=== PATIENT | female | born 1985 | race Caucasian/White ===

== ENCOUNTER 2020-01-07 09:56 | Emergency (ER) | payer OTHER, SELFPAY ==
[2020-01-07 10:00] VITALS: BP 116/79; PULSE 74; RESP 20; TEMP 37; O2SAT 100
--- NOTE | 2020-01-07 10:06 | ED.HA ---
HPI - Headache General Chief Complaint: Headache Stated Complaint: migraine x 4 Time Seen by Provider: 01/07/20 10:15 Source: patient and RN notes reviewed Mode of arrival: ambulatory Limitations: no limitations History of Present Illness HPI Narrative: 34-year-old female presents with concern for migraine headache. Reports a history of migraines. Reports she takes a daily controller medicine, and has been using sumatriptan/naproxen as directed with no relief of her headache. She reports she believes her headaches are due to wearing a mask at work all day long. She reports this is not the worst headache of her life, denies thunderclap headache onset. Denies weakness in any extremity, difficulty speaking, difficulty swallowing, vision changes. She reports light sensitivity, shoulder and neck tension. MD elicited complaint: migraine Related Data Home Medications Medication Instructions Recorded Confirmed sumatriptan-naproxen 1 tablet PO ONCE 01/07/20 01/07/20 topiramate 150 mg PO DAILY 01/07/20 01/07/20 Allergies Allergy/AdvReac Type Severity Reaction Status Date / Time amoxicillin Allergy Intermediate Hives / Verified 01/07/20 10:22 Red Face clavulanic acid Allergy Intermediate Hives / Verified 01/07/20 10:22 Red Face Review of Systems Review of Systems: Narrative: CONSTITUTIONAL: Denies malaise, chills, sweats, or fever. EYES: Denies visual changes watery discharge. ENT: Denies rhinorrhea, congestion, sinus pain, otalgia or sore throat. CARDIOVASCULAR: Denies chest pain, palpitations, or edema. RESPIRATORY: Denies cough or dyspnea. GASTROINTESTINAL: Denies abdominal pain, nausea, vomiting, diarrhea, bloody, or mucous stools. SKIN: Denies rash or itching. MUSCULOSKELETAL: Reports neck and shoulder tension NEUROLOGIC: Reports 4-day migraine PSYCHIATRIC: Denies anxiety or depression. All systems reviewed & are unremarkable except as noted in HPI and below PMFSH Comments At time of signature, agree with nursing past medical, surgical, social and family history. There is no relevant family history pertinent to the presenting complaint Exam Narrative: Exam Narrative: GENERAL: Well-appearing, well-nourished, and in no acute distress. HEAD: Normocephalic, atraumatic. EYES: PERRLA, conjunctivae clear, and EOMI. No nystagmus. ENT: Nares clear. Mucous membranes moist. NECK: Supple. No lymphadenopathy. CHEST: No respiratory distress. Speaks in full sentences. HEART: Regular rate and rhythm. SKIN: Warm, dry, no rash. NEURO: Alert and oriented x3. No focal deficits. Cranial nerves II through XII grossly intact PSYCH: Normal mood and affect Course Course Emergency Course: Patient is aware of diagnosis, understands and agrees to treatment plan. Anticipatory guidance given. Patient agrees to follow-up as directed and is aware of reasons to seek care at the emergency department. Portions of this record may have been created with voice recognition software Vital Signs Vital signs: Vital Signs Temperature 98.6 F 01/07/20 10:00 Pulse Rate 74 01/07/20 10:00 Respiratory Rate 20 01/07/20 10:00 Blood Pressure 116/79 01/07/20 10:00 Pulse Oximetry 100 01/07/20 10:00 Temperature 98.6 F 01/07/20 10:00 Pulse Rate 74 01/07/20 10:00 Respiratory Rate 20 01/07/20 10:00 Blood Pressure 116/79 01/07/20 10:00 Pulse Oximetry 100 01/07/20 10:00 Reviewed. MDM - Headache MDM Narrative Medical decision making narrative: The patient presents with an acute onset headache for 4 days in duration. Patient has past history of migraine headaches. There is not a history of anticoagulation, trauma, , cancer or immunocompromised state. Mental status was normal, no neurological deficits were noted. Differential Diagnosis considered includes hypertensive emergency, subarachnoid hemorrhage, meningitis, trauma, CVA, migraine. Recommendations were given for follow-up with PCP in 1-2 days and to ret
== END 2020-01-07 10:31 | disposition home or self-care (01) ==
PROVIDERS: Emergency Provider Nurse Practitioner
DX: G43.919 Migraine, unspecified, intractable, without status migrainosus (principal)
CPT/HCPCS: 99203; G0463

== ENCOUNTER 2024-09-27 17:41 | Emergency (ER) | payer OTHER, SELFPAY ==
--- OUTSIDE RECORDS SUMMARY | 2024-09-27 17:44 | XMS_ITS | Encounter Summary ---
Author Organization [facility] Address [address] [facility] [facility] [place] [address] Phone Care Team Providers Care Criminal Justice Faculty Name Role Phone Andrei Brice DPM Unavailable [phone] Jj Kaiser MD Primary Care Provider [phone] Gladys Varma APRN, SOAP INSPECTOR Unavailable Reason for Visit * Reason Comments Medication Refill Encounter Details Date Type Department Care Team (Late st Contact Info) Description 09/04/2023 Refill [facility] - Neurology [facility] [address] [place] [id number] Gladys Varma, DRILLING AND PRODUCTION SUPERINTENDENT, SOAP INSPECTOR [address] [place] [address] Medication Refill Social History Tobacco Use Types Packs/Day Years Used Date Smoking Tobacco: Former Smokeless Tobacco: Never Alcohol Use Standard Drinks/Week Comments No 0 (1 standard drink = 0.6 oz pur e alcohol) Comments No Sex and Gender Information Value Date Recorded Sex Assigned at Not on file Legal Sex Female 11:35 PM CDT Gender Identity Not on file Sexual Orientation Not on file documented as of this encounter Miscellaneous Notes * Telephone Encounter - Shruti Tanner RN - 09/04/2023 8:32 AM CST Medication failed the protocol, provider to review and approve the medication order if appropriate. Requested Prescriptions Pending Prescriptions Disp Refills Rizatriptan Benzoate 10 MG Tablet [Pharmacy Med Name: RIZATRIPTAN 10 MG TABLET] 10 Tablet 2 Sig: TAKE 1 TABLET BY MOUTH ONCE NEEDED FOR HEADACHES. MAY REPEAT IN 2 HOURS IN NEEDED Not Delegated - Serotonin Agonists (Oral and Nasal) Protocol Failed - 09/04/2023 12:01 AM Failed - This refill cannot be delegated; check utilization no more than 9 doses per month Passed - Visit with relevant provider in past 24 months or upcoming 90 days Recent Visits Date Type Provider Dept 07/30/23 Office Visit Gladys Varma APRN, [facility] 05/19/23 Office Visit Gladys Varma APRN, [facility]14/23 Office Visit Gladys Var[facility] APR[facility] Office Visit Gladys Varma APRN, [facility] 09/13/21 Office Visit Gladys Varma APRN, [facility] Showing recent visits within past 730 days and meeting all other requirements Future Appointments Date Type Provider Dept 11/03/23 Appointment Gladys Varma APRN, [facility] Showing future appointments within next 90 days and meeting all other requirements Passed - No documented Systolic BP > 200 within past 3 months Passed - Number of active Serotonergic medications less than 3 MACHINERY MECHANIC documented in this encounter Plan of Treatment Not on file documented as of this encounter Visit Diagnoses Not on filedocumented in this encounter Care Teams Criminal Justice Faculty Relationship Specialty Start Date End Date Jj Kaiser MD [address] [place] [address] [address] [place] [address] PCP - General Family Medicine 09/13/21 Andrei Brice DPM Consulting Physician Podiatry 05/23/17 Gladys Varma APRN, SOAP INSPECTOR [address] [place] [address] Nurse Practitioner Advanced Practice Nurse 11/15/22 documented as of this encounter
--- OUTSIDE RECORDS SUMMARY | 2024-09-27 17:44 | XMS_ITS | Encounter Summary ---
Author Organization [facility] Address [address] [place] [address] Phone Care Team Providers Care Harbor Tug Captain Name Role Phone ShivanioLri garduno Edwin BATES Primary Care Provider [phone] Andrei Brice DPM Unavailable [phone] Jj Kaiser MD Primary Care Provider [phone] Gladys Varma APRN, POLITICAL RESEARCHER Unavailable + [phone] Reason for Visit * Reason Comments Medication Refill Encounter Details Date Type Department Care Team (Late st Contact Info) Description 05/21/2020 [facility] - [place] [address] [place] [phone] Morgan Prado MD [address] [place] [phone] Medication Refill Social History Tobacco Use Types Packs/Day Years Used Date Smoking Tobacco: Former Smokeless Tobacco: Never Alcohol Use Standard Drinks/Week Comments No 0 (1 standard drink = 0.6 oz pur e alcohol) Comments Unknown Sex and Gender Information Value Date Recorded Sex Assigned at Not on file Legal Sex Female 11:35 PM CDT Gender Identity Not on file Sexual Orientation Not on file documented as of this encounter Plan of Treatment Not on file documented as of this encounter Visit Diagnoses Not on filedocumented in this encounter Care Teams Harbor Tug Captain Relationship Specialty Start Date End Date Lori Lo APRN [address] [place] [address] PCP - General Family Medicine 05/23/17 09/12/21 Jj Kaiser MD [address] [place] [address] [place] [address] PCP - General Family Medicine 09/13/21 Andrei Brice DPM [address] [place] [address] [place] [address] Consulting Physician Podiatry 05/23/17 Gladys Varma APRN, POLITICAL RESEARCHER [address] [place] [address] Nurse Practitioner Advanced Practice Nurse 11/15/22 documented as of this encounter
--- OUTSIDE RECORDS SUMMARY | 2024-09-27 17:44 | XMS_ITS | Encounter Summary ---
Author Organization [facility] Address [address] [place] [address] Phone Care Team Providers Care Assistant Operator Name Role Phone Andrei Brice DPM Unavailable [phone] Jj Kaiser MD Primary Care Provider [phone] Gladys Varma APRN, PROTECTION ENGINEER Unavailable Reason for Visit * Reason Comments Medication Refill Encounter Details Date Type Department Care Team (Late st Contact Info) Description 07/13/2023 Refill [facility] - Neurology [facility] [address] [place] [address] Gladys Varma, HORTICULTURE TEACHER, PROTECTION ENGINEER [address] [place] [address] Medication Refill Social History Tobacco Use Types [...] on file Sexual Orientation Not on file COVID-19 Exposure Response Date Recorded In the last 10 days, have yo u been in contact with someone who was confirmed or suspected to have Coronavirus/COVID-19? No / Unsure 06/26/2023 3:13 PM FRETTED INSTRUMENT REPAIRER documented as of this encounter Miscellaneous Notes * Telephone Encounter - Shruti Tanner RN - 07/13/2023 7:27 PM CST Medication failed the protocol, provider to review and approve the medication order if appropriate. Requested Prescriptions Pending Prescriptions Disp Refills naproxen (NAPROSYN) 500 MG Tablet [Pharmacy Med Name: NAPROXEN 500 MG TABLET] 30 Tablet 2 Sig: Take 1 Tablet by mouth daily as needed for Headaches. NSAIDs Protocol Failed - 07/13/2023 2:56 PM Failed - Normal serum creatinine in past 12 months CREATININE, BLOOD Date Value Ref Range Status 10/05/2021 0.82 0.60 - 1.10 mg/dL Final Failed - AST less than 55 or ALT less than 90 in past 12 months SGOT (AST) Date Value Ref Range Status 10/05/2021 14 <=32 U/L Final SGPT (ALT) Date Value Ref Range Status 10/05/2021 9 <=41 U/L Final Failed - HGB greater than 10 or HCT greater than 30 in past 12 months HEMOGLOBIN (HGB) Date Value Ref Range Status 10/05/2021 14.9 12.0 - 15.8 g/dL Final HEMATOCRIT (HCT) Date Value Ref Range Status 10/05/2021 46.1 36.0 - 47.0 % Final Passed - No positive test in the past 12 months or most recent test was negative Passed - Visit with relevant provider in past 12 months or upcoming 90 days Recent Visits Date Type Provider Dept 05/19/23 Office Visit Gladys Varma APRN, PROTECTION ENGINEER [facility] 02/14/23 Office Visit Gladys Varma APRN, PROTECTION ENGINEER [facility] [place] 11/15/22 Office Visit Gladys Varma APRN, PROTECTION ENGINEER [facility] [place] Showing recent visits within past 365 days and meeting all other requirements Future Appointments Date Type Provider Dept 08/25/23 Appointment Gladys Varma APRN, PROTECTION ENGINEER [facility] [place] Showing future appointments within next 90 days and meeting all other requirements Passed - No active on record Passed - No matching NSAID med order in past 45 days No matching medication orders between 05/29/2023 7:27 PM and 07/13/2023 7:27 PM TED INSTRUMENT REPAIRER documented in this encounter Plan of Treatment Not on file documented as of this encounter Visit Diagnoses Diagnosis Chronic migraine with aura without status migrainosus, not intractable- Primary Neck pain Cervicalgia documented in this encounter Care Teams Assistant Operator Relationship Specialty Start Date End Date Jj Kaiser MD [address] [facility] [address] [facility] [address] [place] [address] PCP - General Family Medicine 09/13/21 Anrdei Brice DPM Consulting Physician Podiatry 05/23/17 Gladys Varma APRN, PROTECTION ENGINEER [address] [place] [address] Nurse Practitioner Advanced Practice Nurse 11/15/22 documented as of this encounter
--- OUTSIDE RECORDS SUMMARY | 2024-09-27 17:44 | XMS_ITS | Encounter Summary ---
Author Organization [facility] Address [address] [facility] [place] [address] Phone Care Team Providers Care Energy Risk Management Analyst Name Role Phone Andrei Brice DPM Unavailable [phone] Jj Kaiser MD Primary Care Provider [phone] Gladys Varma APRN, DIRECTOR WOMEN Unavailable Reason for Visit * Reason Comments Medication Refill Encounter Details Date Type Department Care Team (Late st Contact Info) Description 05/28/2022 Refill [facility] - [facility]rology [facility] [address] [place] [address] Gladys Varma, CHAIR POST MACHINE OPERATOR, DIRECTOR WOMEN [address] [place] [address] Medication Refill Social History Tobacco Use Types [...] on filedocumented in this encounter Care Teams Energy Risk Management Analyst Relationship Specialty Start Date End Date Jj Kaiser MD [address] [facility] [address] [place] [address] PCP - General Family Medicine 09/13/21 Andrei Brice DPM Consulting Physician Podiatry 05/23/17 Gladys Varma APRN, DIRECTOR WOMEN [address] [place] [address] Nurse Practitioner Advanced Practice Nurse 11/15/22 documented as of this encounter
--- OUTSIDE RECORDS SUMMARY | 2024-09-27 17:44 | XMS_ITS | Encounter Summary ---
Author Organization [facility] Address [address] [place] [address] Phone Care Team Providers Care Day Worker Name Role Phone ShivaniLori garduno Edwin BATES Primary Care Provider [phone] Andrei Brice DPM Unavailable [phone] Jj Kaiser MD Primary Care Provider [phone] Gladys Varma INFORMATION SERVICES MANAGER, SUPERVISOR HOME RESTORATION SERVICE Unavailable + [phone] Reason for Visit * Reason Comments Medication Refill Encounter Details Date Type Department Care Team (Late st Contact Info) Description 12/23/2019 [facility]ill [facility] - [place] [address] [place] [phone] Tiffany Lara, INFORMATION SERVICES MANAGER, SHOE SHINER [address] [place] [address] Medication Refill Social History Tobacco Use Types [...] on filedocumented in this encounter Care Teams Day Worker Relationship Specialty Start Date End Date Lori Lo APRN [address] [place] [place] [address] [place] [address] PCP - General Family Medicine 05/23/17 09/12/21 Jj Kaiser MD [address] [place] [address] [place] [address] PCP - General Family Medicine 09/13/21 Andrei Brice DPM [address] [place] [address] [place] [address] Consulting Physician Podiatry 05/23/17 Gladys Varma APRN, SUPERVISOR HOME RESTORATION SERVICE [address] [place] [address] Nurse Practitioner Advanced Practice Nurse 11/15/22 documented as of this encounter
--- OUTSIDE RECORDS SUMMARY | 2024-09-27 17:44 | XMS_ITS | Encounter Summary ---
Author Organization [facility] Address [address] [facility] [place] [address] Phone Care Team Providers Care Nurse Transplant Name Role Phone Andrei Brice DPM Unavailable [phone] Jj Kaiser MD Primary Care Provider [phone] Gladys Varma APRN, MOBILE HOME MECHANIC Unavailable Reason for Visit * Reason Comments Medication Refill Encounter Details Date Type Department Care Team (Late st Contact Info) Description 10/01/2022 Refill [facility] - [facility]rology [facility] [address] [place] [address] Gladys Varma, PLATER APPRENTICE, MOBILE HOME MECHANIC [address] [place] [address] Medication Refill Social History Tobacco Use Types [...] on filedocumented in this encounter Care Teams Nurse Transplant Relationship Specialty Start Date End Date Jj Kaiser MD [address] [facility] [address] [address] PCP - General Family Medicine 09/13/21 Andrei Brice DPM Consulting Physician Podiatry 05/23/17 Gladys Varma APRN, MOBILE HOME MECHANIC [address] [place] [address] Nurse Practitioner Advanced Practice Nurse 11/15/22 documented as of this encounter
--- OUTSIDE RECORDS SUMMARY | 2024-09-27 17:44 | XMS_ITS | Encounter Summary ---
Author Organization [facility] Address [address] [place] [address] Phone Care Team Providers Care Car Chaser Name Role Phone Andrei Brice DPM Unavailable [phone] Jj Kaiser MD Primary Care Provider Galdys Varma APRN, MANAGER STRATEGY Unavailable Reason for Visit * Reason Comments Medication Refill Encounter Details Date Type Department Care Team (Late st Contact Info) Description 06/30/2023 Refill [facility] - [facility] [address] [place] [address] Gladys Varma, ENGINEERING SPECIALIST, MANAGER STRATEGY [address] [place] [address] Medication Refill Social History Tobacco Use Types [...] Coronavirus/COVID-19? No / Unsure 06/26/2023 3:13 PM TRANSMITTER CHIEF documented as of this encounter Miscellaneous Notes * Telephone Encounter - Shruti Tanner RN - 06/30/2023 9:00 AM CST Medication failed the protocol, provider to review and approve the medication order if appropriate. Requested Prescriptions Pending Prescriptions Disp Refills Topiramate 50 MG Tablet [Pharmacy Med Name: TOPIRAMATE 50 MG TABLET] 90 Tablet 1 Sig: TAKE 1 TABLET BY MOUTH NIGHTLY Not Delegated - Anticonvulsants Excluding Benzodiazepines Protocol Failed - 06/30/2023 12:01 AM Failed - This refill cannot be delegated Passed - Visit with relevant provider in past 12 months or upcoming 90 days Recent Visits Date Type Provider Dept 05/19/23 Office Visit Gladys Varma APRN, [facility] [place] 02/14/23 [facility] [place] 11/15/22 Office Visit Gladys Varma APRN, [facility] Showing recent visits within past 365 days and meeting all other requirements Future Appointments Date Type Provider Dept 08/25/23 Appointment Gladys Varma APRN, [facility] [place] Showing future appointments within next 90 days and meeting all other requirements SMITTER CHIEF documented in this encounter Plan of Treatment Not on file documented as of this encounter Visit Diagnoses Not on filedocumented in this encounter Care Teams Car Chaser Relationship Specialty Start Date End Date Jj Kaiser MD [address] [place] [address] [address] [place] [address] PCP - General Family Medicine 09/13/21 Andrei Brice DPM Consulting Physician Podiatry 05/23/17 Gladys Varma APRN, MANAGER STRATEGY [address] [place] [address] Nurse Practitioner Advanced Practice Nurse 11/15/22 documented as of this encounter
--- OUTSIDE RECORDS SUMMARY | 2024-09-27 17:44 | XMS_ITS | Encounter Summary ---
Author Organization [facility] Address [address] [facility] [place] [address] Phone Care Team Providers Care Plastic Battery Assembler Name Role Phone Andrei Brice DPM Unavailable [phone] Jj Kaiser MD Primary Care Provider [phone] Gladys Varma APRN, MEDICAL DIRECTOR OF HOSPICE Unavailable Reason for Visit * Reason Comments Medication Refill Encounter Details Date Type Department Care Team (Late st Contact Info) Description 01/30/2022 Refill [facility] - [facility] [address] [place] [address] Gladys Varma, POCKET CREASER, MEDICAL DIRECTOR OF HOSPICE [address] [place] [address] Medication Refill Social History Tobacco Use Types [...] on filedocumented in this encounter Care Teams Plastic Battery Assembler Relationship Specialty Start Date End Date Jj Kaiser MD [address] [facility] [place] [address] PCP - General Family Medicine 09/13/21 Andrei Brice DPM Consulting Physician Podiatry 05/23/17 Gladys Varma APRN, MEDICAL DIRECTOR OF HOSPICE [address] [place] [address] Nurse Practitioner Advanced Practice Nurse 11/15/22 documented as of this encounter
--- OUTSIDE RECORDS SUMMARY | 2024-09-27 17:44 | XMS_ITS | Encounter Summary ---
Author Organization [facility] Address [address] [facility] [place] [address] Phone Care Team Providers Care Stripping Shovel Oiler Name Role Phone Andrei Brice DPM Unavailable [phone] Jj Kaiser MD Primary Care Provider [phone] Gladys Varma APRN, GROUND SUPPORT AGENT Unavailable Reason for Visit * Reason Comments Medication Refill Encounter Details Date Type Department Care Team (Late st Contact Info) Description 11/04/2022 Refill [facility] - [facility] [address]2 [place] [address] Gladys Varma, FRAME REPAIRER, GROUND SUPPORT AGENT [address] [place] [address] Medication Refill Social History Tobacco Use Types [...] encounter Miscellaneous Notes * Telephone Encounter - Cheryl Gomez RN - 11/04/2022 12:54 PM CDT Medication failed the protocol, provider to review and approve the medication order if appropriate. Requested Prescriptions Pending Prescriptions Disp Refills naproxen (NAPROSYN) 500 MG Tablet [Pharmacy Med Name: NAPROXEN 500 MG TABLET] 30 Tablet 0 Sig: TAKE 1 TABLET BY MOUTH DAILY NEEDED FOR HEADACHES. NSAIDs Protocol Failed - 11/04/2022 12:14 AM Failed - Normal serum creatinine in past 12 months CREATININE, BLOOD Date Value Ref Range Status 10/05/2021 0.82 0.60 - 1.10 mg/dL Final Failed - No matching NSAID med order in past 45 days Matching medication order placed on 10/01/2022 8:16 AM Order [id number]: naproxen (NAPROSYN) 500 MG Tablet (For orders placed between 09/20/2022 12:54 PM and 11/04/2022 12:54 PM) Failed - AST less than 55 or [...] months or upcoming 90 days Recent Visits No visits were found meeting these conditions. Showing recent visits within past 365 days and meeting all other requirements Future Appointments Date Type Provider Dept 11/15/22 Appointment Gladys Varma APRN, GROUND SUPPORT AGENT [facility] Showing future appointments within next 90 days and meeting all other requirements Passed - No active on record documented in this encounter Plan of Treatment Not on file documented as of this encounter Visit Diagnoses Not on filedocumented in this encounter Care Teams Stripping Shovel Oiler Relationship Specialty Start Date End Date Jj Kaiser MD [address] [facility] [place] [address] PCP - General Family Medicine 09/13/21 Andrei Brice DPM Consulting Physician Podiatry 05/23/17 Gladys Varma APRN, GROUND SUPPORT AGENT [address] [place] [address] Nurse Practitioner Advanced Practice Nurse 11/15/22 documented as of this encounter
--- OUTSIDE RECORDS SUMMARY | 2024-09-27 17:44 | XMS_ITS | Encounter Summary ---
Author Organization [facility] Address [address] [facility] [place] [address] Phone Care Team Providers Care Furnace Cooler Name Role Phone Andrei Brice DPM Unavailable [phone] Jj Kaiser MD Primary Care Provider [phone] Gladys Varma APRN, FURNITURE SERVICER Unavailable Reason for Visit * Reason Comments Medication Refill Encounter Details Date Type Department Care Team (Late st Contact Info) Description 05/01/2023 Refill [facility] [address]2 [place] [address] Gladys Varma, PRELIMINARY SCHOOL PSYCHOLOGIST, FURNITURE SERVICER [address] [place] [address] Medication Refill Social History Tobacco Use Types [...] Telephone Encounter - Shruti Tanner RN - 05/01/2023 8:11 AM CDT Medication failed the protocol, provider to [...] Agonists (Oral and Nasal) Protocol Failed - 05/01/2023 12:48 AM Failed - This refill cannot be delegated; check utilization no more than 9 doses per month Passed - Visit with relevant provider in past 24 months or upcoming 90 days Recent Visits Date Type Provider Dept 02/14/23 Office Visit Gladys Varma APRN, [facility] 11/15/22 Office Visit Gladys Varma APRN, [facility] 09/13/21 Office Visit Gladys Varma APRN, [facility] Showing recent visits within past 730 days and meeting all other requirements Future Appointments Date Type Provider Dept 05/19/23 Appointment Gladys Varma APRN, [facility] Neu[facility] Showing future appointments within next 90 days and meeting all other requirements Passed - No documented Systolic BP > 200 within past 3 months Passed - Number of active Serotonergic medications less than 3 documented in this encounter Plan of Treatment Not on file documented as of this encounter Visit Diagnoses Not on filedocumented in this encounter Care Teams Furnace Cooler Relationship Specialty Start Date End Date Jj Kaiser MD [address] [place] [address] [address] [place] [address] PCP - General Family Medicine 09/13/21 Andrei Brice DPM Consulting Physician Podiatry 05/23/17 Gladys Varma APRN, FURNITURE SERVICER [address] [place] [address] Nurse Practitioner Advanced Practice Nurse 11/15/22 documented as of this encounter
--- OUTSIDE RECORDS SUMMARY | 2024-09-27 17:44 | XMS_ITS ---
Author Organization [facility] Address [address] [facility] [place] [address] Phone Care Team Providers Care Power Marketer Name Role Phone Andrei Brice DPM Unavailable [phone] Jj Kaiser MD Primary Care Provider [phone] Gladys Varma APRN, DISTRIBUTION CENTER SUPERVISOR Unavailable [phone] [facility] Status:Enrolled (Active) Start date:09/15/2024 Enrollment date:09/15/2024 Related social drivers of health:Intimate Partner Violence, Social Connections, Alcohol Use, Tobacco Use, Financial Resource Strain,Depression, Stress, Physical Activity, Food Insecurity, Transportation Needs, Housing Stability, Utilities Continued Care and Services Coordination
--- OUTSIDE RECORDS SUMMARY | 2024-09-27 17:44 | XMS_ITS | Encounter Summary ---
Author Organization [facility] Address [address] [place] [address] Phone Care Team Providers Care Lithographers Printer Name Role Phone ShivaniLori garduno Edwin BATES Primary Care Provider [phone] Andrei Brcie DPM Unavailable [phone] Jj Kaiser MD Primary Care Provider [phone] Gladys Varma APRN, PROGRESSIVE CARE MANAGER Unavailable + [phone] Reason for Visit * Reason Comments Medication Refill Encounter Details Date Type Department Care Team (Late st Contact Info) Description 06/15/2020 [facility]ill [facility] [address]1 [place] [phone] Morgan Prado MD [address] [place] [address] Medication Refill Social History Tobacco Use Types [...] as of this encounter Visit Diagnoses Diagnosis Migraine with aura and without status migrainosus, not intractable Migraine with aura, without mention of intractable migraine without mention of status migrainosus documented in this encounter Care Teams Lithographers Printer Relationship Specialty Start Date End Date Lori Lo APRN [address] [place] [address] PCP - General Family Medicine 05/23/17 09/12/21 Jj Kaiser MD [address] [place] [address] [place] [address] PCP - General Family Medicine 09/13/21 Andrei Brice DPM [address] [place] [address] Consulting Physician Podiatry 05/23/17 Gladys Vrama APRN, PROGRESSIVE CARE MANAGER [address] [place] [address] Nurse Practitioner Advanced Practice Nurse 11/15/22 documented as of this encounter
--- OUTSIDE RECORDS SUMMARY | 2024-09-27 17:44 | XMS_ITS | Encounter Summary ---
Author Organization [facility] Address [address] [place] [address] Phone Care Team Providers Care Assistant Import Manager Name Role Phone ShivaniLori garduno Edwin BATES Primary Care Provider [phone] Andrei Brice DPM Unavailable [phone] Jj Kaiser MD Primary Care Provider [phone] Gladys Varma APRN, SOLE SCRAPER Unavailable + [phone] Reason for Visit * Reason Comments Medication Refill Encounter Details Date Type Department Care Team (Late st Contact Info) Description 06/22/2020 Refill [facility] [address]1 [place] [address] Morgan Prado MD [address] [place] [address] Medication Refill Social History Tobacco Use Types [...] migrainosus documented in this encounter Care Teams Assistant Import Manager Relationship Specialty Start Date End Date Lori Lo APRN [address] [place] [address] PCP - General Family Medicine 05/23/17 09/12/21 Jj Kaiser MD [address] [place] [address] [place] [address] PCP - General Family Medicine 09/13/21 Andrei Brice DPM [address] [place] [address] Consulting Physician Podiatry 05/23/17 Gladys Varma APRN, SOLE SCRAPER [address] [place] [address] Nurse Practitioner Advanced Practice Nurse 11/15/22 documented as of this encounter
--- OUTSIDE RECORDS SUMMARY | 2024-09-27 17:44 | XMS_ITS | Encounter Summary ---
Author Organization [facility] Address [address] [facility] [place] [address] Phone Care Team Providers Care Coal Washer Name Role Phone Andrei Brice DPM Unavailable [phone] Jj Kaiser MD Primary Care Provider [phone] Gladys Varma APRN, MATH SPECIALIST Unavailable Reason for Visit * Reason Comments Medication Refill Encounter Details Date Type Department Care Team (Late st Contact Info) Description 01/05/2024 Refill [facility] - [facility]rology [facility] [address]2 [place] [id number] Gladys Varma, CLINICAL ASSOC, MATH SPECIALIST [address]2 [place] [address] Medication Refill Social History Tobacco Use Types [...] Telephone Encounter - Shruti Tanner RN - 01/05/2024 12:59 PM CDT Medication failed the protocol, provider to review and approve the medication order if appropriate. Requested Prescriptions Pending Prescriptions Disp Refills ondansetron (ZOFRAN-ODT) 4 MG TABLET DISPERSIBLE [Pharmacy Med Name: ONDANSETRON ODT 4 MG TABLET] 30 Tablet 0 Sig: TAKE 1 TABLET BY MOUTH EVERY 8 HOURS NEEDED FOR NAUSEA FIRST LINE Not Delegated - 5-HT3 Antagonists Protocol Failed - 01/05/2024 11:45 AM Failed - This refill cannot be delegated Passed - Visit with relevant provider in past 12 months or upcoming 90 days Recent Visits Date Type Provider Dept 11/03/23 Office Visit Gladys Varma APRN, [facility] [place] 07/30/23 Office Visit Gladys Varma APRN, [facility] 05/19/23 Office Visit Gladys Varma APRN, [facility] [place] 02/14/23 Office Visit Gladys Varma APRN [facility] Showing recent visits within past 365 days and meeting all other requirements Future Appointments Date Type Provider Dept 02/10/24 Appointment Gladys [facility]N [facility] [place] Showing future appointments within next 90 days and meeting all other requirements documented in this encounter Plan of Treatment Not on file documented as of this encounter Visit Diagnoses Diagnosis Chronic migraine with aura without status migrainosus, not intractable documented in this encounter Care Teams Coal Washer Relationship Specialty Start Date End Date Jj Kaiser MD [address] [place] [address] PCP - General Family Medicine 09/13/21 Andrei Brice DPM Consulting Physician Podiatry 05/23/17 Gladys Varma APRN, MATH SPECIALIST [address] [place] [address] Nurse Practitioner Advanced Practice Nurse 11/15/22 documented as of this encounter
--- OUTSIDE RECORDS SUMMARY | 2024-09-27 17:44 | XMS_ITS | Referral Summary ---
Author Organization [facility] Address [address] [place] [address] Care Team Providers Care Cellular Phone Repairer Name Role Phone Jj Kaiser MD Primary Care Provider [phone] Allergies Active Allergy Reactions Criticality Noted Date Comments Amoxicillin Hives Reaction: Hives, Amoxicillin-Pot Clavulanate Hives,Unknown 05/23 Reaction: HIVES Medications dicyclomine (BENTYL) 20 mg tablet Take 1 tablet (20 mg total) by mouth 2 (two) times a day 20 tablet 08/20/19 20 Active ondansetron ODT (ZOFRAN-ODT) 4 mg disintegrating tablet Dissolve 1 tablet oral every 4 hours as needed for nausea or vomiting. 15 tablet 07/04/20 20 Active Additional Information Patient not taking.Reported on 01/06/2022 HYDROcodone-acetam inophen (NORCO) 5-325 mg per tabletIndications: Pain Take 1 tablet by mouth every 4 (four) hours as needed for pain 12 tablet 04/27/20 21 Active Additional Information Patient not taking.Reported on 01/06/2022 topiramate (TOPAMAX) 100 mg tablet Take 1 tablet (100 mg total) by mouth every morning 12/12/19 22 Active topiramate (TOPAMAX) 50 mg tablet Take 1 tablet (50 mg total) by mouth nightly 12/12/19 22 Active valACYclovir (VALTREX) 500 mg tablet Take 1 tablet (500 mg total) by mouth 2 (two) times a day 11/27/19 22 Active buPROPion SR (WELLBUTRIN SR) 100 mg 12 hr tablet TAKE 1 TABLET TWICE A DAY BY ORAL ROUTE FOR 90 DAYS. 11/15/19 22 Active cyclobenzaprine (FLEXERIL) 5 mg tablet TAKE 2 TABLETS BY MOUTH 3 TIMES DAILY NEEDED FOR MUSCLE SPASMS. 12/07/19 22 Active metoclopramide (REGLAN) 10 mg tablet TAKE 1 TABLET BY MOUTH 4 TIMES DAILY NEEDED FOR NAUSEA - 2ND LINE.( NOT ENROLLED IN MEDICAID) 10/05/19 22 Active naproxen (NAPROSYN) 500 mg tablet TAKE 1 TABLET BY MOUTH DAILY NEEDED FOR HEADACHES. 12/25/19 22 Active Xulane 150-35 mcg/24 hr APPLY 1 PATCH TO SKIN WEEKLY FOR 3 WEEKS, THEN 1 WEEK OFF 12/30/19 22 Active rizatriptan (MAXALT) 10 mg tablet TAKE 1 TABLET BY MOUTH ONCE NEEDED FOR HEADACHES. MAY REPEAT IN 2 HOURS IN NEEDED 11/11/19 22 Active azithromycin (ZITHROMAX) 250 mg tabletIndications: Strep pharyngitis Take 2 tablets the first day, then 1 tablet daily for 4 days 6 tablet 08/05/20 22 Active ondansetron ODT (ZOFRAN-ODT) 4 mg disintegrating tablet Dissolve 1 tablet oral every 4 hours as needed for nausea or vomiting. 15 tablet 09/16/19 23 Active busPIRone (BUSPAR) 5 mg tablet Take 1 tablet (5 mg total) by mouth 2 (two) times a day as needed 10/06/19 24 Active Active Problems Problem Noted Date Diagnosed Date Cyst of maxillary sinus 12/03/2023 Assessment & Plan (12/03/2023 2:50 PM CDT): Mucus retention cyst was small, not causing obstruction, incidental finding on MRI Lumbar strain, initial encounter 08/18/2020 Urinary tract infection in female 08/14/2018 Acute viral syndrome 08/14/2018 Common migraine with intractable migraine 2014 Overview (11/21/2016): Intractable migraine without aura and without status migrainosus Cellulitis 06/12/2015 Overview (11/21/2016): Cellulitis, unspecified cellulitis site Acute upper respiratory infection 10/26/2014 Overview (11/21/2016): URI, acute Bronchitis 05/30/2014 Overview (11/21/2016): Bronchitis Social History Tobacco Use Types Packs/Day Years Used Date Smoking Tobacco: Every Day Vaping Smokeless Tobacco: Never Tobacco Cessation:Ready to Q uit: Not Asked; Counseling Given: Not Answered Alcohol Use Standard Drinks/Week Comments No 0 (1 standard drink = 0.6 oz pur e alcohol) Comments No Sex and Gender Information Value Date Recorded Sex Assigned at Not on file Legal Sex Female 2:04 AM CLOUD ENGINEER Gender Identity Not on file Sexual Orientation Not on file Last Filed Vital Signs Vital Sign Reading Time Taken Comments Blood Pressure 101/70 12/03/2023 2:14 PM CDT Pulse 86 12/03/2023 2:14 PM CDT Temperature 36.2 C (97.1 F) 09/16/2022 6:55 AM CLOUD ENGINEER Respiratory Rate 18 12/03/2023 2:14 PM CDT Oxygen Saturation 95% 12/03/2023 2:14 PM CDT Inhaled Oxygen Concentration - - Weight 74.8 kg (165 lb) 12/03/2023 2:14 PM CDT Height 165.1 cm (5' 5 ) 12/03/2023 2:14 PM CDT Body Mass Index 27.46 12/03/2023 2:14 PM CDT Plan of Treatment Not on file Insurance [facility] Advance Directives For more information, please contact: [phone] * Full Code (Latest Code Status on File) Date Activated Date Inactivated Comments 04/26/2021 3:11 PM 04/28/2021 10:39 PM * Full Code Date Activated Date Inactivated Comments 04/26/2021 6:37 AM 04/26/2021 3:11 PM Full CPR in ca se of cardiopulmonary arrest Care Teams Cellular Phone Repairer Relationship Specialty Start Date End Date Jj Kaiser MD PCP - General 08/18/20
--- OUTSIDE RECORDS SUMMARY | 2024-09-27 17:44 | XMS_ITS | Encounter Summary ---
Author Organization [facility] Address [address] [place] [address] Phone Care Team Providers Care Solar Thermal Installer Name Role Phone Andrei Brice DPM Unavailable [phone] Jj Kaiser MD Primary Care Provider [phone] Gladys Varma APRN, ETHYL BLENDER Unavailable Reason for Visit * Reason Comments Medication Refill Encounter Details Date Type Department Care Team (Late st Contact Info) Description 12/17/2022 Refill [facility] #2 [place] [phone] Gladys Varma, LAB SYSTEMS ANALYST, ETHYL BLENDER [address] [place] [address] Medication Refill Social History Tobacco Use Types [...] Telephone Encounter - Shruti Tanner RN - 12/18/2022 8:43 AM CDT Medication failed the protocol, provider [...] Agonists (Oral and Nasal) Protocol Failed - 12/17/2022 12:01 AM Failed - This refill cannot be delegated; check utilization no more than 9 doses per month Passed - Visit with relevant provider in past 24 months or upcoming 90 days Recent Visits Date Type Provider Dept 11/15/22 Office Visit Gladys Varma APRN, [facility] Neurology [facility] [place] 09/13/21 Office Visit Gladys Varma APRN, [facility] Showing recent visits within past 730 days and meeting all other requirements Future Appointments Date Type Provider Dept 02/14/23 Appointment Gladys Varma APRN, [facility] Showing future appointments within next 90 days and meeting all other requirements Passed - No documented Systolic BP > 200 within past 3 months Passed - Number of active Serotonergic medications less than 3 documented in this encounter Plan of Treatment Not on file documented as of this encounter Visit Diagnoses Not on filedocumented in this encounter Care Teams Solar Thermal Installer Relationship Specialty Start Date End Date Jj Kaiser MD [address] [facility] [address] [place] [address] PCP - General Family Medicine 09/13/21 Andrei Brice DPM Consulting Physician Podiatry 05/23/17 Gladys Varma APRN, ETHYL BLENDER [address] [place] [address] Nurse Practitioner Advanced Practice Nurse 11/15/22 documented as of this encounter
--- OUTSIDE RECORDS SUMMARY | 2024-09-27 17:44 | XMS_ITS | Encounter Summary ---
Author Organization [facility] Address [address] [facility] [place] [address] Phone Care Team Providers Care Cement Patcher Name Role Phone Andrei Brice DPM Unavailable [phone] Jj Kaiser MD Primary Care Provider [phone] Gladys Varma APRN, APARTMENT MAINTENANCE Unavailable Reason for Visit * Reason Comments Medication Refill Encounter Details Date Type Department Care Team (Late st Contact Info) Description 05/26/[address] [facility] - [facility] #2 [place] [address] Gladys Varma, MIXING HOUSE OPERATOR, APARTMENT MAINTENANCE [address] [place] [address] Medication Refill Social History Tobacco Use Types [...] on filedocumented in this encounter Care Teams Cement Patcher Relationship Specialty Start Date End Date Jj Kaiser MD [address] [facility] [place] [address] PCP - General Family Medicine 09/13/21 Andrei Brice DPM Consulting Physician Podiatry 05/23/17 Gladys Varma APRN, APARTMENT MAINTENANCE [address] [place] [address] Nurse Practitioner Advanced Practice Nurse 11/15/22 documented as of this encounter
--- OUTSIDE RECORDS SUMMARY | 2024-09-27 17:44 | XMS_ITS | Encounter Summary ---
Author Organization [facility] Address [address] [place] [address] Phone Care Team Providers Care Burn Crew Member Name Role Phone Andrei Brice DPM Unavailable [phone] Jj Kaiser MD Primary Care Provider [phone] Gladys Varma APRN, SLASHER TENDER HELPER Unavailable Reason for Visit * Reason Comments Medication Refill Encounter Details Date Type Department Care Team (Late st Contact Info) Description 11/22/2022 Refill [facility] - Neurology [facility] #2 [place] [address] Gladys Varma, ELECTRONICS REPAIR TECHNICIAN, SLASHER TENDER HELPER [address] [place] [address] Medication Refill Social History Tobacco Use Types [...] suspected to have Coronavirus/COVID-19? No / Unsure 11/15/2022 11:01 AM CDT documented as of this encounter Miscellaneous Notes * Telephone Encounter - Cheryl Gomez RN - 11/25/2022 10:50 AM CDT Medication failed the protocol, provider to review and approve the medication order if appropriate. Requested Prescriptions Pending Prescriptions Disp Refills Topiramate 50 MG Tablet [Pharmacy Med Name: TOPIRAMATE 50 MG TABLET] 90 Tablet 1 Sig: Take 1 Tablet by mouth nightly. Not Delegated - Anticonvulsants Excluding Benzodiazepines Protocol Failed - 11/22/2022 11:28 AM Failed - This refill cannot be delegated Passed - Visit with relevant provider in past 12 months or upcoming 90 days Recent Visits Date Type Provider Dept 11/15/22 Office Visit Gladys Varma APRN, [facility] Showing recent visits within past 365 days and meeting all other requirements Future Appointments Date Type Provider Dept 02/14/23 Appointment Gladys Varma APRN, [facility] [place] Showing future appointments within next 90 days and meeting all other requirements documented in this encounter Plan of Treatment Not on file documented as of this encounter Visit Diagnoses Not on filedocumented in this encounter Care Teams Burn Crew Member Relationship Specialty Start Date End Date Jj Kaiser MD [address] [facility] [place] [address] PCP - General Family Medicine 09/13/21 Andrei Brice DPM Consulting Physician Podiatry 05/23/17 Gladys Varma APRN, SLASHER TENDER HELPER [address] [place] [address] Nurse Practitioner Advanced Practice Nurse 11/15/22 documented as of this encounter
--- OUTSIDE RECORDS SUMMARY | 2024-09-27 17:44 | XMS_ITS | Encounter Summary ---
Author Organization [facility] Address [address] [place] [address] Phone Care Team Providers Care Blacking Machine Operator Name Role Phone Andrei Brice DPM Unavailable [phone] Jj Kaiser MD Primary Care Provider [phone] Gladys Varma ONLINE AFFILIATE MARKETING MANAGER, GRAIN CLEANER AND TRANSFER OPERATOR Unavailable Reason for Visit * Reason Comments Medication Refill Encounter Details Date Type Department Care Team (Late st Contact Info) Description 12/29/2021 Refill [facility] - Neurology [facility] #2 [place] [address] Gladys Varma, ONLINE AFFILIATE MARKETING MANAGER, GRAIN CLEANER AND TRANSFER OPERATOR [address] [place] [address] Medication Refill Social History Tobacco Use Types [...] this encounter Visit Diagnoses Diagnosis Migraine with aura, not intractable, without status migrainosus documented in this encounter Care Teams Blacking Machine Operator Relationship Specialty Start Date End Date Jj Kaiser MD [address] [place] [address] [address] [place] [address] PCP - General Family Medicine 09/13/21 Andrei Brice DPM Consulting Physician Podiatry 05/23/17 Gladys Varma APRN, GRAIN CLEANER AND TRANSFER OPERATOR [address] [place] [address] Nurse Practitioner Advanced Practice Nurse 11/15/22 documented as of this encounter
--- OUTSIDE RECORDS SUMMARY | 2024-09-27 17:44 | XMS_ITS | Clinical Summary ---
Author Organization [facility] Address [address] [place] [address] Phone Care Team Providers Care Bridge Ironworker Name Role Phone Andrei Brice DPM Unavailable [phone] jJ Kaiser MD Primary Care Provider [phone] Gladys Varma APRN, MILL TENDER SECOND OPERATOR Unavailable [phone] Allergies Active Allergy Reactions Criticality Noted Date Comments Amoxicillin-Pot Clavulanate Unknown 05/23/20 17 Medications Xulane 150-35 MCG/24HR PATCH WEEKLY 09/12/2021 Active buPROPion (WELLBUTRIN) 100 MG Tablet Take 100 mg by mouth 2 times daily. Active Topiramate 50 MG Tablet TAKE 1 TABLET BY MOUTH NIGHTLY 90 Tablet 1 04/30/2024 Active cyclobenzaprine (FLEXERIL) 10 MG Tablet TAKE 1 TABLET BY MOUTH 3 TIMES DAILY NEEDED FOR MUSCLE SPASMS FOR UP TO 30 DAYS. 30 Tablet 2 06/03/2024 Active ondansetron (ZOFRAN-ODT) 4 MG TABLET DISPERSIBLEIndic ations:Chronic migraine with aura without status migrainosus, not intractable TAKE 1 TABLET BY MOUTH EVERY 8 HOURS NEEDED FOR NAUSEA FIRST LINE 30 Tablet 06/03/2024 Active naproxen (NAPROSYN) 500 MG TabletIndication s:Neck pain TAKE 1 TABLET BY MOUTH DAILY NEEDED FOR HEADACHES. 30 Tablet 2 06/03/2024 Active pantoprazole (PROTONIX) 40 MG Tablet Delayed Response Take 1 Tablet by mouth daily. 30 Tablet 06/04/2024 Active traMADol (ULTRAM) 50 MG TabletIndication s:Gastritis without bleeding, unspecified chronicity, unspecified gastritis type Take 1-2 Tablets by mouth every 6 hours as needed for Severe pain. 12 Tablet 06/04/2024 Active Rizatriptan Benzoate 10 MG Tablet TAKE 1 TABLET BY MOUTH ONCE NEEDED FOR HEADACHES. MAY REPEAT IN 2 HOURS IN NEEDED 10 Tablet 2 07/30/2024 Active topiramate (TOPAMAX) 100 MG TabletIndication s:Chronic migraine with aura without status migrainosus, not intractable TAKE 2 TABLETS BY MOUTH EVERY DAY 180 Tablet 2 08/03/2024 Active Active Problems Problem Noted Date Diagnosed Date Migraine with aura and witho ut status migrainosus, not intractable 04/21/2019 Paronychia of great toe, left 06/05/2017 Encounters Date Type Department Care Team Description 08[facility]03[facility] [address] [place] [address] Gladys Varma APRN, MILL TENDER SECOND OPERATOR Medication Refill 07/30/2024 [facility] [address] [place] [address] Gladys Varma APRN, MILL TENDER SECOND OPERATOR Medication Refill from Last 3 Months Family History Medical History Relation Name Comments No Known Problems Father Alcohol Abuse Mother Depression Mother Migraines Mother Alcohol Abuse Sister Relation Name Status Comments Father Mother Sister Social History Tobacco Use Types Packs/Day Years Used Date Smoking Tobacco: Former Smokeless Tobacco: Never Tobacco Cessation:Counseling Given: Not Answered Alcohol Use Standard Drinks/Week Comments No 0 (1 standard drink = 0.6 oz pur e alcohol) Comments No Sex and Gender Information Value Date Recorded Sex Assigned at Not on file Legal Sex Female 11:35 PM CDT Gender Identity Not on file Sexual Orientation Not on file Last Filed Vital Signs Vital Sign Reading Time Taken Comments Blood Pressure 131/74 06/04/2024 2:01 PM CDT Pulse 68 06/04/2024 2:01 PM CDT Temperature 37.1 C (98.7 F) 06/04/2024 10:59 AM CDT Respiratory Rate 16 06/04/2024 2:01 PM CDT Oxygen Saturation 99% 06/04/2024 2:01 PM CDT Inhaled Oxygen Concentration - - Weight 68 kg (150 lb) 06/04/2024 11:00 AM CDT Height 165.1 cm (5' 5 ) 06/04/2024 10:59 AM CDT Body Mass Index 24.96 06/04/2024 10:59 AM CDT Plan of Treatment Health Maintenance Due Date Last Done Comments Hepatitis C Virus (HCV) Screening 1986 TdaP Immunization 1986 Hepatitis B Immunization (1 of 3 - 19+ 3-dose series) 2005 Pap Smear 11/08/2007 Cervical Cancer Screening (CCS) 2016 HPV/Cotest 2016 Influenza Immunization (#1) 2024 07/18/2016 SARS-COV-2 Immunization ( season) 2024 Respiratory Syncytial Virus (RSV) Immunization (Adult) (1 - 1-dose 75+ series) 2061 Meningococcal Immunization (ACWY) Aged Out No longer eligible based on patient's age to complete this topic Pneumococcal Immunization Combined Aged Out No longer eligible based on patient's age to complete this topic Rotavirus Immunization Aged Out No lo nger eligible based on patient's age to complete this topic Insurance [place] Care Teams Bridge Ironworker Relationship Specialty Start Date End Date Jj Kaiser MD [address] [place] [address] PCP - General Family Medicine 09/13/21 Andrei Brice DPM Consulting Physician Podiatry 05/23/17 Gladys Varma APRN, MILL TENDER SECOND OPERATOR [address] [place] [address] Nurse Practitioner Advanced Practice Nurse 11/15/22
--- OUTSIDE RECORDS SUMMARY | 2024-09-27 17:44 | XMS_ITS | Encounter Summary ---
Author Organization [facility] Address [address] [place] [address] Phone Care Team Providers Care Digital Advisor Name Role Phone Andrei Brice DPM Unavailable [phone] Jj Kaiser MD Primary Care Provider [phone] Gladys Varma APRN, MARINE SAFETY OFFICER Unavailable Reason for Visit * Reason Comments Medication Refill Encounter Details Date Type Department Care Team (Late st Contact Info) Description 04/03/2023 Refill [facility] - [facility]rology [facility] [address] [place] [address] Gladys Varma, MAGICIAN/ILLUSIONIST, MARINE SAFETY OFFICER [address] [place] [address] Medication Refill Social History Tobacco Use Types [...] Visit Diagnoses Diagnosis Chronic migraine with aura documented in this encounter Care Teams Digital Advisor Relationship Specialty Start Date End Date Jj Kaiser MD [address] [facility] [address] [place] [address] PCP - General Family Medicine 09/13/21 Andrei Brice DPM Consulting Physician Podiatry 05/23/17 Gladys Varma APRN, MARINE SAFETY OFFICER [address] [place] [address] Nurse Practitioner Advanced Practice Nurse 11/15/22 documented as of this encounter
--- OUTSIDE RECORDS SUMMARY | 2024-09-27 17:44 | XMS_ITS | Encounter Summary ---
Author Organization [facility] Address [address] [place] [address] Phone Care Team Providers Care Product Support Manager Name Role Phone ShivaniLori garduno Edwin BATES Primary Care Provider [phone] Andrei Brice DPM Unavailable [phone] Jj Kaiser MD Primary Care Provider [phone] Gladys Varma APRN, COVERAGE SPECIALIST Unavailable + [phone] Reason for Visit * Reason Comments Medication Refill Encounter Details Date Type Department Care Team (Late st Contact Info) Description 03/20/2020 [facility]ill [facility] [address] [place] [address] Morgan Prado MD [address] [place] [address] Medication Refill Social History Tobacco Use Types [...] with aura and without status migrainosus, not intractable- Primary Migraine with aura, without mention of intractable migraine without mention of status migrainosus documented in this encounter Care Teams Product Support Manager Relationship Specialty Start Date End Date Lori Lo APRN [address] [facility] [place] [address] PCP - General Family Medicine 05/23/17 09/12/21 Jj Kaiser MD [address] [facility] [place] [address] PCP - General Family Medicine 09/13/21 Andrei Brice DPM [address] [facility] [place] [address] Consulting Physician Podiatry 05/23/17 Gladys Varma APRN, COVERAGE SPECIALIST [address] [place] [address] Nurse Practitioner Advanced Practice Nurse 11/15/22 documented as of this encounter
--- OUTSIDE RECORDS SUMMARY | 2024-09-27 17:44 | XMS_ITS | Encounter Summary ---
Author Organization [facility] Address [address] [place] [address] Phone Care Team Providers Care Gumming Machine Operator Name Role Phone ShivaniLori garduno Edwin BATES Primary Care Provider [phone] Andrei Brice DPM Unavailable [phone] Jj Kaiser MD Primary Care Provider [phone] Gladys Varma STUDENT FINANCIAL AID MANAGER, CUSTOMER ASSISTANCE ASSOCIATE Unavailable + [phone] Reason for Visit * Reason Comments Medication Refill Encounter Details Date Type Department Care Team (Late st Contact Info) Description 10/12/2019 [facility]ill [facility] - [place] [address] [place] [address] Tiffany Lara, STUDENT FINANCIAL AID MANAGER, LOCK INSTALLER [address] [place] [address] Medication Refill Social History Tobacco [...] on filedocumented in this encounter Care Teams Gumming Machine Operator Relationship Specialty Start Date End Date Lori Lo APRN [address] [place] [address] [place] [address] PCP - General Family Medicine 05/23/17 09/12/21 Jj Kaiser MD [address] [place] [address] [place] [address] PCP - General Family Medicine 09/13/21 Andrei Brice DPM [address] [place] [address] [place] [address] Consulting Physician Podiatry 05/23/17 Gladys Varma APRN, CUSTOMER ASSISTANCE ASSOCIATE [address] [place] [address] Nurse Practitioner Advanced Practice Nurse 11/15/22 documented as of this encounter
--- OUTSIDE RECORDS SUMMARY | 2024-09-27 17:44 | XMS_ITS | Encounter Summary ---
Author Organization [facility] Address [address] [place] [address] Phone Care Team Providers Care Supervisor Properties Name Role Phone Andrei Brice DPM Unavailable [phone] Jj Kaiser MD Primary Care Provider [phone] Gladys Varma APRN, SECURITY POLICE OFFICER Unavailable Reason for Visit * Reason Comments Medication Refill Encounter Details Date Type Department Care Team (Late st Contact Info) Description 02/13/2023 Refill [facility] - [facility]rology [facility] [address] [place] [address] Gladys Varma, VACUUM FRAME OPERATOR, SECURITY POLICE OFFICER [address] [place] [address] Medication Refill Social History Tobacco Use Types [...] suspected to have Coronavirus/COVID-19? No / Unsure 02/14/2023 2:28 PM CDT documented as of this encounter Plan of Treatment Not on file documented as of this encounter Visit Diagnoses Diagnosis Migraine with aura, not intractable, without status migrainosus documented in this encounter Care Teams Supervisor Properties Relationship Specialty Start Date End Date Jj Kaiser MD [address] [place] [address] [address] [place] [address] PCP - General Family Medicine 09/13/21 Andrei Brice DPM Consulting Physician Podiatry 05/23/17 Gladys Varma APRN, SECURITY POLICE OFFICER [address] [place] [address] Nurse Practitioner Advanced Practice Nurse 11/15/22 documented as of this encounter
--- OUTSIDE RECORDS SUMMARY | 2024-09-27 17:44 | XMS_ITS | Clinical Summary ---
Author Organization [facility] Address [address] [place] [address] Care Team Providers Care Card Boxer Name Role Phone Jj Kaiser MD Primary Care Provider [phone] Allergies Active Allergy Reactions Criticality Noted Date [...] URI, acute Bronchitis 05/30/2014 Overview (11/21/2016): Bronchitis Surgical History Surgery Date Site/Laterality Comments NO PAST SURGERIES Medical History Medical History Date Comments Hx Other Medical Headache, migra ine Depression Depression Anxiety disorder Anxiety Migraines Family History Medical History Relation Name Comments Migraines Father Migraine; Headache Mother Headaches; Relation Name Status Comments Father Mother Social History Tobacco Use Types Packs/Day Years [...] on file Legal Sex Female 2:04 AM OCCUPATIONAL HEALTH TECHNICIAN Gender Identity Not on file Sexual Orientation Not on file Obstetrics History Para Term AB IAB SAB Ectopic Multiple Livin g Live Births 5 4 4 1 1 0 4 4 Date Outcome GA Total Labor Labor/2nd/3rd Weight Sex Type Anes PTL Blanche A1 A5 Name Clin SAB 009 Term Vag-S pont Livin g 015 Term Vag-S pont Livin g 021 Term Vag-S pont Livin g 021 Term 39w 0d 0h 16m 0h 07m/0h 04m/0h 05m 3.637 kg (8 lb 0.3 oz) M Vag-S pont None N Livin g 8 8 SHELLI LOCK,Helder Snyder MD Complications:None Delivery Location:This Facil ity ([facility]) Last Filed Vital Signs Vital Sign Reading Time Taken Comments Blood Pressure 101/70 12/03/2023 2:14 PM CDT Pulse 86 12/03/2023 2:14 PM CDT Temperature 36.2 C (97.1 F) 09/16/2022 6:55 AM OCCUPATIONAL HEALTH TECHNICIAN Respiratory Rate 18 12/03/2023 2:14 PM CDT Oxygen Saturation 95% 12/03/2023 2:14 PM CDT Inhaled Oxygen Concentration - - Weight 74.8 kg (165 lb) 12/03/2023 2:14 PM CDT Height 165.1 cm (5' 5 ) 12/03/2023 2:14 PM CDT Body Mass Index 27.46 12/03/2023 2:14 PM CDT Plan of Treatment Health Maintenance Due Date Last Done Comments Cervical Cancer Screening 1986 Depression Screening 1986 Hepatitis C Screening 1986 Pneumococcal vaccine <65 (1 of 2 - PCV) 1992 DTaP/Tdap/Td Vaccine (1 - Tdap) 1997 Varicella Vaccines (1 of 2 - 13+ 2-dose series) 11/08/1999 Hepatitis B Screening 2004 Regular Well Visit/Exam 18-64 2004 Influenza Vaccine (#1) 2024 07/18/2016 HPV Vaccines Aged Out No longer eligi ble based on patient's age to complete this topic Insurance [facility] Advance Directives For more information, please contact: [phone] * Full Code (Latest Code Status on File) Date Activated Date Inactivated Comments 04/26/2021 3:11 PM 04/28/2021 10:39 PM * Full Code Date Activated Date Inactivated Comments 04/26/2021 6:37 AM 04/26/2021 3:11 PM Full CPR in ca se of cardiopulmonary arrest Care Teams Card Boxer Relationship Specialty Start Date End Date Jj Kaiser MD PCP - General 08/18/20
[2024-09-27 17:51] VITALS: BP 126/76; PULSE 84; RESP 20; TEMP 37.2; O2SAT 100
[2024-09-27 18:17] LABS: EDCOVIDSCREEN Negative (Negative); EDINFLUASCREEN Negative (Negative); EDINFLUBSCREEN Negative (Negative); EDSTREPNEGPOS1 Negative (Negative)
--- NOTE | 2024-09-27 18:19 | ED.URI ---
HPI - URI/Sore Throat General Chief Complaint: Upper Respiratory Infection Stated Complaint: throat Time Seen by Provider: 09/27/24 18:20 History of Present Illness HPI Narrative: 38-year-old female presented for complaint of sore throat x3 days. Started with body aches and then lost her voice. denies shortness of breath, wheezing nausea vomiting, difficulty maintaining secretions, fevers or lethargy . Related Data Home Medications ?Medication ?Instructions ?Recorded ?Confirmed ?Last Taken ?Type sumatriptan 85 mg-naproxen 500 mg 1 tablet PO ONCE 01/07/20 01/07/20 Unknown History tablet topiramate 150 mg capsule 150 mg PO DAILY 01/07/20 01/07/20 Unknown History sprinkle,extended release 24 hr bupropion HCl 100 mg tablet,12 hr mg PO 09/27/24 Unknown History sustained-release norelgestromin 150 mcg-e.estradiol patch 09/27/24 Unknown History 35 mcg/24 hr weekly transderm patch Allergies Allergy/AdvReac Type Severity Reaction Status Date / Time amoxicillin Allergy Intermediate Hives / Verified 09/27/24 18:02 Red Face clavulanic acid Allergy Intermediate Hives / Verified 09/27/24 18:02 Red Face Review of Systems Review of Systems: per HPI Exam Narrative: GENERAL: Mildly Ill-appearing, nontoxic, no acute distress. EYES: conjunctivae clear ENT: Mucous membranes moist. TM pearly montanez with normal light reflex bilaterally; no tragal tenderness. Oropharynx note erythematous without lesions. Tonsils not enlarged and without exudate. No drooling, no hoarseness, no trismus, uvula midline. No tripod positioning, hot potato voice, or soft palate swelling. NECK: Supple. No lymphadenopathy CHEST: Clear to auscultation, breath sounds equal. No respiratory distress, speaks in full sentences. HEART: Regular rate and rhythm. No murmur heard. SKIN: Warm, dry, no rash. NEURO: Alert and oriented x3. Course Course Emergency Course: Patient is aware of diagnosis, understands and agrees to treatment plan. Anticipatory guidance given. Patient agrees to follow-up as directed and is aware of reasons to seek care at the emergency department. Portions of this record may have been created with voice recognition software Level of Care: Express Care Visit Vital Signs Vital signs: Vital Signs Temperature 99.0 F 09/27/24 17:51 Pulse Rate 84 09/27/24 17:51 Respiratory Rate 20 09/27/24 17:51 Blood Pressure 126/76 09/27/24 17:51 Pulse Oximetry 100 09/27/24 17:51 Oxygen Delivery Room Air 09/27/24 17:51 Temperature 99.0 F 09/27/24 17:51 Pulse Rate 84 09/27/24 17:51 Respiratory Rate 20 09/27/24 17:51 Blood Pressure 126/76 09/27/24 17:51 Pulse Oximetry 100 09/27/24 17:51 Oxygen Delivery Room Air 09/27/24 17:51 MDM - URI/Sore Throat MDM Narrative Medical decision making narrative: Negative flu, COVID, and strep result reviewed with pt. Rx steroid reviewed with patient. Advise supportive treatments. Patient is appropriate for outpatient treatment and follow-up. Differential Diagnosis Differential diagnosis: Likely upper respiratory infection, viral infection and pharyngitis Lab Data Labs: Lab Results 09/27/24 Range/Units 17:57 POC Influenza A Ag Negative (Negative) POC Influenza B Ag Negative (Negative) POC SARS CoV-2 Ag Negative (Negative) POC Grp A Strep Screen Negative (Negative) Discharge Plan Discharge Clinical Impression: Pharyngitis Patient Disposition: Home, Self-Care Condition: Stable Instructions: Pharyngitis (ED) Additional Instructions: Flu and COVID negative. Rapid strep swab was negative today You will be notified in a few days if the culture comes back positive for strep, and appropriate antibiotics will be called in at that time. if symptoms are due to a viral illness, it is not treated with antibiotics. Viral symptoms can be present for up to 10-14 days. Recommend: Flonase spray and Zyrtec for sinus congestion Cough syrup may cause drowsiness; avoid driving or take it at night time. Tylenol every 8 hours as needed for pain/fever Soft foods, cool liquids, warm tea. Gargle with warm saltwater twice a day. Chloraseptic spray and throat lozenges. Rest and stay hydrated. --Follow up with your PCP --Go to the ER immediately if you cannot swallow your saliva, trouble breathing/wheezing, throat swelling, pain is persistent and severe Patient Language: South Korean Prescriptions: New prednisone 50 mg tablet 50 mg PO DAILY Qty: 5 0RF No Action sumatriptan-naproxen 85-500 mg Tablet 1 tablet PO ONCE topiramate 150 mg Capsule,Sprinkle,Er 24hr 150 mg PO DAILY bupropion HCl 100 mg tablet sustained-release 12 hr PO norelgestromin-ethin.estradiol 150-35 mcg/24 hr patch weekly Follow-up/Referrals: Job,Jj Zhu MD [Primary Care Provider] - Time of Disposition: 18:25
== END 2024-09-27 18:30 | disposition home or self-care (01) ==
PROVIDERS: Emergency Provider Nurse Practitioner Family; PCP Family Medicine
DX: J02.9 Acute pharyngitis, unspecified (principal); Z20.822 Contact with and (suspected) exposure to COVID-19
CPT/HCPCS: 87081; 87426; 87804; 87880; 99213; G0463

== ENCOUNTER 2024-12-18 08:52 | Emergency (ER) | payer OTHER, SELFPAY ==
[2024-12-18 09:02] VITALS: BP 117/79; PULSE 89; RESP 16; TEMP 36.8; O2SAT 100
--- NOTE | 2024-12-18 09:10 | ED.URI ---
HPI - URI/Sore Throat General Chief Complaint: Upper Respiratory Infection Stated Complaint: flu symptoms Time Seen by Provider: 12/18/24 09:10 Source: patient and RN notes reviewed Mode of arrival: ambulatory Limitations: no limitations History of Present Illness HPI Narrative: 39-year-old female presents Express Care complaining of flu-like symptoms for 1 day. Patient says she was at work this morning and she was tested for COVID in flu at work and she tested positive for flu B. patient's employer sent her here to confirm that she has influenza. Patient reports having congestion, chills, and body aches. Patient denies cough, sore throat, fevers, nausea, vomiting, diarrhea, abdominal pain, chest pain, or difficulty breathing. Patient said she did not get her flu vaccine. Patient has not taken anything ohhd-iex-nprlmei for her symptoms. Related Data Home Medications ?Medication ?Instructions ?Recorded ?Confirmed ?Last Taken ?Type sumatriptan 85 mg-naproxen 500 mg 1 tablet PO ONCE 01/07/20 01/07/20 Unknown History tablet topiramate 150 mg capsule 150 mg PO DAILY 01/07/20 01/07/20 Unknown History sprinkle,extended release 24 hr bupropion HCl 100 mg tablet,12 hr mg PO 09/27/24 Unknown History sustained-release norelgestromin 150 mcg-e.estradiol patch 09/27/24 Unknown History 35 mcg/24 hr weekly transderm patch Allergies Allergy/AdvReac Type Severity Reaction Status Date / Time amoxicillin Allergy Intermediate Hives / Verified 09/27/24 18:02 Red Face clavulanic acid Allergy Intermediate Hives / Verified 09/27/24 18:02 Red Face Review of Systems Review of Systems: CONSTITUTIONAL: Denies fever or sweats. Positive for body aches and chills. EYES: Denies visual changes, redness, or discharge. ENT: Denies rhinorrhea, sore throat, or otalgia. Positive for congestion. CARDIOVASCULAR: Denies chest pain, palpitations, or edema. RESPIRATORY: Denies cough or dyspnea. GASTROINTESTINAL: Denies abdominal pain, nausea, vomiting, or diarrhea. GENITOURINARY: Denies dysuria or hematuria. SKIN: Denies rash or itching. MUSCULOSKELETAL: Denies back pain, joint pain, or myalgia. NEUROLOGIC: Denies headache, numbness, or weakness. PSYCHIATRIC: Denies anxiety or depression. All other systems reviewed are negative, except as documented in HPI. PMFSH Comments At the time of my signature, I reviewed and agree with the nursing past medical, surgical, social, and family history. There is no relevant family history pertinent to the patient complaint. Exam Narrative: GENERAL: This is a well-nourished, well-developed adult, in no apparent distress. They are non ill-appearing, nontoxic appearing. HEAD: normocephalic, atraumatic. EYES: Sclera clear/white. Conjunctiva normal. Vision is grossly intact. Extraocular movements intact EARS: External ears normal, auditory canals clear and without drainage, TMs normal without perforation. Hearing grossly intact. NOSE: External nose normal with no obvious nasal discharge, nasal turbinates erythematous bilaterally, no rhinorrhea. THROAT: Mucous membranes moist, posterior pharynx clear, without erythema or swelling. Uvula midline. NECK: Neck supple, non-tender without lymphadenopathy, masses or thyromegaly. CARDIOVASCULAR: Regular rate and rhythm without murmurs, gallops, or rubs. RESPIRATORY: Clear to auscultation. Breath sounds equal bilaterally. No wheezes, rales, or rhonchi. SKIN: warm, Dry, intact with no suspicious lesions or rash, good texture and turgor. NEURO: awake, alert, and oriented to person, place and time. There were no obvious focal neurologic abnormalities. EXTREMITIES: No joint tenderness, effusion, or edema noted. BACK: Nontender without deformity. Course Course Emergency Course: Portions of this record may have been created with voice recognition software Level of Care: Express Care Visit Vital Signs Vital signs: Vital Signs Temperature 98.3 F 12/18/24 09:02 Pulse Rate 89 12/18/24 09:02 Respiratory Rate 16 12/18/24 09:02 Blood Pressure 117/79 12/18/24 09:02 Pulse Oximetry 100 12/18/24 09:02 Oxygen Delivery Room Air 12/18/24 09:02 Temperature 98.3 F 12/18/24 09:02 Pulse Rate 89 12/18/24 09:02 Respiratory Rate 16 12/18/24 09:02 Blood Pressure 117/79 12/18/24 09:02 Pulse Oximetry 100 12/18/24 09:02 Oxygen Delivery Room Air 12/18/24 09:02 Reviewed MDM - URI/Sore Throat MDM Narrative Medical decision making narrative: Rapid flu is positive for flu B. Offered patient Tamiflu and she declined. Discussed physical exam findings. Advised supportive measures and signs/symptoms to go to the ER. Pt is appropriate for outpt treatment and f/u. Differential Diagnosis Differential diagnosis: Likely upper respiratory infection, viral infection and influenza Lab Data Attestation: I reviewed the patient's lab results. Labs: Lab Results 12/18/24 Range/Units 09:19 POC Influenza A Ag Negative (Negative) POC Influenza B Ag Positive (Negative) Critical Care Time Critical Care Time Critical Care Time: No Discharge Plan Discharge Clinical Impression: Influenza Patient Disposition: Home Condition: Stable Instructions: Influenza (ED) Additional Instructions: You tested positive for the flu. The flu is self-limiting and will last at least 3 to up to 14 days. Recommend antihistamine such as Benadryl at night time and Zyrtec or Shantel during the day for congestion. Also, recommend symptomatic treatment includes: rest, fluids, and increase humidity of the air at home. You may take Tylenol or ibuprofen as needed for pain or fevers. I recommend DayQuil or NyQuil or other nmig-pkk-xkcnkqz cold/flu medications. These medications may contain Tylenol still please do not exceed 1000 mg Tylenol at once or more than 4000 mg in a day. Please schedule a follow-up visit with your personal physician for further evaluation and treatment within 3-5days. If your symptoms persist, change or worsen significantly before you can contact your personal physician then please, without delay, go to the emergency department for further evaluation. Patient Language: Slovak Prescriptions: No Action sumatriptan-naproxen 85-500 mg Tablet 1 tablet PO ONCE topiramate 150 mg Capsule,Sprinkle,Er 24hr 150 mg PO DAILY bupropion HCl 100 mg tablet sustained-release 12 hr PO norelgestromin-ethin.estradiol 150-35 mcg/24 hr patch weekly prednisone 50 mg tablet 50 mg PO DAILY Qty: 5 0RF Follow-up/Referrals: Job,Jj Zhu MD [Primary Care Provider] - Stand Alone Forms: Work/School Release IP Time of Disposition: 09:26
[2024-12-18 09:20] LABS: EDINFLUASCREEN Negative (Negative); EDINFLUBSCREEN Positive (Negative)
--- OUTSIDE RECORDS SUMMARY | 2024-12-18 15:58 | XMS_ITS | Encounter Summary ---
Author Organization [facility] Address [address] [place] [address] Phone Care Team Providers Care Site Acquisition Manager Name Role Phone Andrei Brice DPM Unavailable [phone] Jj Kaiser MD Primary Care Provider [phone] Gladys Varma APRN, AIR TWIST OPERATOR Unavailable Reason for Visit * Reason Comments Medication Refill Encounter Details Date Type Department Care Team (Late st Contact Info) Description 09/04/2023 Refill [facility] - Neurology [facility] [address] [place] [id number] Gladys Varma, TELECOMMUNICATIONS OFFICER, AIR TWIST OPERATOR [address] [place] [address] Medication Refill Social History Tobacco Use Types [...] Dept 07/30/23 Office Visit Gladys Varma APRN, [facility] Neurology [facility] 05/19/23 Office Visit Gladys Varma APRN, [facility] 02/14/23 Office Visit Gladys Varma APRN, [facility] 11/15/22 Office Visit Gladys Varma APRN, [facility] Neurology [facility] 09/13/21 Office Visit Gladys Varma APRN, [facility] Showing recent visits within past 730 days and meeting all other requirements Future Appointments Date Type Provider Dept 11/03/23 Appointment Gladys Varma APRN, [facility] Showing future appointments within next 90 days and meeting all other requirements Passed - No documented Systolic BP > 200 within past 3 months Passed - Number of active Serotonergic medications less than 3 IX LEAD documented in this encounter Plan of Treatment Upcoming Encounters Date Type Department Care Team (Late st Contact Info) Description 01/13/2025 3:00 PM CDT Office Visit [facility]rology - [place] [address] [place] [address] Gladys Varma APRN, AIR TWIST OPERATOR [address] [place] [address] documented as of this encounter Visit Diagnoses Not on filedocumented in this encounter Care Teams Site Acquisition Manager Relationship Specialty Start Date End Date Jj Kaiser MD [address] [place] [address] [address] [place] [address] PCP - General Family Medicine 09/13/21 Andrei Brice DPM Consulting Physician Podiatry 05/23/17 Gladys Varma APRN, AIR TWIST OPERATOR [address] [place] [address] Nurse Practitioner Advanced Practice Nurse 11/15/22 documented as of this encounter
--- OUTSIDE RECORDS SUMMARY | 2024-12-18 15:58 | XMS_ITS | Encounter Summary ---
Author Organization [facility] Address [address] [facility] [place] [address] Phone Care Team Providers Care Physicians And Surgeons Name Role Phone Andrei Brice DPM Unavailable [phone] Jj Kaiser MD Primary Care Provider [phone] Gladys Varma APRN, CARBONIZER TESTER Unavailable Reason for Visit * Reason Comments Medication Refill Encounter Details Date Type Department Care Team (Late st Contact Info) Description 01/05/2024 Refill [facility] - Neurology [facility] [address] [place] [id number] Gladys Varma, CHANGE CONTROL SPECIALIST, CARBONIZER TESTER [address] [place] [address] Medication Refill Social History Tobacco Use Types [...] Dept 11/03/23 Office Visit Gladys Varma APRN, [facility] 07/30/23 Office Visit Gladys Varma APRN, [facility] 05/19/23 Office Visit Gladys Varma APRN, [facility] 02/14/23 Office Visit Gladys Varma APRN, [facility] Showing recent visits within past 365 days and meeting all other requirements Future Appointments Date Type Provider Dept 02/10/24 Appointment Gladys Varma APRN, [facility] Showing future appointments within next 90 days and meeting all other requirements documented in this encounter Plan of Treatment Upcoming Encounters Date Type Department Care Team (Late st Contact Info) Description 01/13/2025 3:00 PM CDT Office Visit [facility] - Neurology - [place] [address] [place] [address] Gladys Varma APRN, CARBONIZER TESTER [address] [place] [address] documented as of this encounter Visit Diagnoses Diagnosis Chronic migraine with aura without status migrainosus, not intractable documented in this encounter Care Teams Physicians And Surgeons Relationship Specialty Start Date End Date Jj Kaiser MD [address] [facility] [address] [place] [address] PCP - General Family Medicine 09/13/21 Andrei Brice DPM Consulting Physician Podiatry 05/23/17 Gladys Varma APRN, CARBONIZER TESTER [address] [place] [address] Nurse Practitioner Advanced Practice Nurse 11/15/22 documented as of this encounter
--- OUTSIDE RECORDS SUMMARY | 2024-12-18 15:58 | XMS_ITS | Encounter Summary ---
Author Organization [facility] Address [address] [place] [address] Phone Care Team Providers Care Plumber Cub Name Role Phone Andrei Brice DPM Unavailable [phone] Jj Kaiser MD Primary Care Provider [phone] Gladys Varma APRN, QUALITY TECHNICIAN [place] Unavailable Reason for Visit * Reason Comments Medication Refill Encounter Details Date Type Department Care Team (Late st Contact Info) Description 11/22/2022 Refill [facility] - [facility] [address] [place] [address] Gladys Varma, BLEACH LIQUOR MAKER, QUALITY TECHNICIAN [place] [address] [place] [address] Medication Refill Social History Tobacco Use Types [...] Dept 11/15/22 Office Visit Gladys Varma APRN, QUALITY TECHNICIAN [place] [facility] Neurology [facility] [place] Showing recent visits within past 365 days and meeting all other requirements Future Appointments Date Type Provider Dept 02/14/23 Appointment Gladys Varma APRN, QUALITY TECHNICIAN [place] [facility] Neu[facility] Showing future appointments within next 90 days and meeting all other requirements documented in this encounter Plan of Treatment Upcoming Encounters Date Type Department Care Team (Late st Contact Info) Description 01/13/2025 3:00 PM CDT [facility] [place] [address] [place] [address] Gladys Varma APRN, QUALITY TECHNICIAN [place] [address] [place] [address] documented as of this encounter Visit Diagnoses Not on filedocumented in this encounter Care Teams Plumber Cub Relationship Specialty Start Date End Date Jj Kaiser MD [address] [place] [address] [place] [address] PCP - General Family Medicine 09/13/21 Andrei Brice DPM Consulting Physician Podiatry 05/23/17 Gladys Varma APRN, QUALITY TECHNICIAN [place] [address] [place] [address] Nurse Practitioner Advanced Practice Nurse 11/15/22 documented as of this encounter
--- OUTSIDE RECORDS SUMMARY | 2024-12-18 15:58 | XMS_ITS | Encounter Summary ---
Author Organization [facility] Address [address] [place] [address] Phone Care Team Providers Care Lan Specialist Name Role Phone Andrei Brice DPM Unavailable [phone] Jj Kaiser MD Primary Care Provider [phone] Gladys Varma EARLY CHILDHOOD EDUCATION COORDINATOR, CORROSION CONTROL SPECIALIST Unavailable Reason for Visit * Reason Comments Medication Refill Encounter Details Date Type Department Care Team (Late Contact Info) Description 12/29/2021 Refill [facility]rology [facility] [address] [place] [phone] Gladys Varma, EARLY CHILDHOOD EDUCATION COORDINATOR, CORROSION CONTROL SPECIALIST [address] [place] [address] Medication Refill Social History Tobacco Use Types [...] as of this encounter Plan of Treatment Upcoming Encounters Date Type Department Care Team (Late Contact Info) Description 01/13/2025 3:00 PM CDT Office Visit [facility] Neurology [facility] [address] [place] [address] Gladys Varma APRN, CORROSION CONTROL SPECIALIST [address] [place] [address] documented as of this encounter Visit Diagnoses Diagnosis Migraine with aura, not intractable, without status migrainosus documented in this encounter Care Teams Lan Specialist Relationship Specialty Start Date End Date Jj Kaiser MD [address] [place] [address] [facility] [address] [place] [address] PCP - General Family Medicine 09/13/21 Andrei Brice DPM Consulting Physician Podiatry 05/23/17 Gladys Varma APRN, CORROSION CONTROL SPECIALIST [address] [place] [address] Nurse Practitioner Advanced Practice Nurse 11/15/22 documented as of this encounter
--- OUTSIDE RECORDS SUMMARY | 2024-12-18 15:58 | XMS_ITS | Encounter Summary ---
Author Organization [facility] Address [address] [place] [address] Phone Care Team Providers Care Single Pass Soil Stabilizer Operator Name Role Phone ShivaniLori garduno Edwin BATES Primary Care Provider [phone] Andrei Brice DPM Unavailable [phone] Jj Kaiser MD Primary Care Provider [phone] Gladys Varma APRN, SECRET CODE EXPERT Unavailable [phone] Reason for Visit * Reason Comments Medication Refill Encounter Details Date Type Department Care Team (Late Contact Info) Description 06/22/2020 [facility]ill [facility] - [place] [address] [place] [address] Morgan Prado MD #[address] [place] [address] Medication Refill Social History Tobacco Use Types [...] Description 01/13/2025 3:00 PM CDT Office Visit [facility] - Neurology - [place] [address] [place] [address] Gladys Varma APRN, SECRET CODE EXPERT [address] [place] [address] documented as of this encounter Visit Diagnoses Diagnosis Migraine with aura and without status migrainosus, not intractable Migraine with aura, without mention of intractable migraine without mention of status migrainosus documented in this encounter Care Teams Single Pass Soil Stabilizer Operator Relationship Specialty Start Date End Date Lori Lo APRN [address] [facility] [place] [address] PCP - General Family Medicine 05/23/17 09/12/21 Jj Kaiser MD [address] [facility] [facility] [place] [address] PCP - General Family Medicine 09/13/21 Andrei Brice DPM [address] [facility] [facility] [place] [address] Consulting Physician Podiatry 05/23/17 Gladys Varma APRN, SECRET CODE EXPERT [address] [place] [address] Nurse Practitioner Advanced Practice Nurse 11/15/22 documented as of this encounter
--- OUTSIDE RECORDS SUMMARY | 2024-12-18 15:58 | XMS_ITS | Encounter Summary ---
Author Organization [facility] Address [address] [facility] [place] [address] Phone Care Team Providers Care Water Resources Project Manager Name Role Phone Andrei Brice DPM Unavailable [phone] Jj Kaiser MD Primary Care Provider [phone] Gladys Varma VP COMMUNICATIONS, BUSINESS OPERATIONS ANALYST Unavailable Reason for Visit * Reason Comments Medication Refill Encounter Details Date Type Department Care Team (Late Contact Info) Description 04/03/2023 Refill [facility] Neu[facility] [address] [place] [address] Gladys Varma, VP COMMUNICATIONS, BUSINESS OPERATIONS ANALYST [address] [place] [address] Medication Refill Social History Tobacco Use Types [...] Description 01/13/2025 3:00 PM CDT Office Visit [facility] Neurology [facility] [address] [place] [address] Gladys Varma APRN, BUSINESS OPERATIONS ANALYST [address] [place] [address] documented as of this encounter Visit Diagnoses Diagnosis Chronic migraine with aura documented in this encounter Care Teams Water Resources Project Manager Relationship Specialty Start Date End Date Jj Kaiser MD [address] [place] [address] [facility] [address] [place] [address] PCP - General Family Medicine 09/13/21 Andrei Brice DPM Consulting Physician Podiatry 05/23/17 Gladys Varma APRN, BUSINESS OPERATIONS ANALYST [address] [place] [address] Nurse Practitioner Advanced Practice Nurse 11/15/22 documented as of this encounter
--- OUTSIDE RECORDS SUMMARY | 2024-12-18 15:58 | XMS_ITS | Encounter Summary ---
Author Organization [facility] Address [address] [facility] [place] [address] Phone Care Team Providers Care Fur Blower Name Role Phone Andrei Brice DPM Unavailable [phone] Jj Kaiser MD Primary Care Provider [phone] Gladys Varma SERVER SOFTWARE ENGINEER, MEDICAL PHYSICS TEACHER Unavailable Reason for Visit * Reason Comments Medication Refill Encounter Details Date Type Department Care Team (Late Contact Info) Description 05/26/2022 Refill [facility] Neurology [facility] [address] [place] [address] Gladys Varma, SERVER SOFTWARE ENGINEER, MEDICAL PHYSICS TEACHER [address] [place] [address] Medication Refill Social History Tobacco Use Types [...] Description 01/13/2025 3:00 PM CDT Office Visit [facility] Neurology [facility] [address] [place] [address] Gladys Varma APRN, MEDICAL PHYSICS TEACHER [address] [place] [address] documented as of this encounter Visit Diagnoses Not on filedocumented in this encounter Care Teams Fur Blower Relationship Specialty Start Date End Date Jj Kaiser MD [address] [place] [address] [facility] [address] [place] [address] PCP - General Family Medicine 09/13/21 Andrei Brice DPM Consulting Physician Podiatry 05/23/17 Gladys Varma APRN, MEDICAL PHYSICS TEACHER [address] [place] [address] Nurse Practitioner Advanced Practice Nurse 11/15/22 documented as of this encounter
--- OUTSIDE RECORDS SUMMARY | 2024-12-18 15:58 | XMS_ITS | Encounter Summary ---
Author Organization [facility] Address [address] [facility] [place] [address] Phone Care Team Providers Care Comb Tender Name Role Phone Andrei Brice DPM Unavailable [phone] Jj Kaiser MD Primary Care Provider [phone] Gladys Varma APRN, SHREDDING MACHINE KNIFE CHANGER Unavailable Reason for Visit * Reason Comments Medication Refill Encounter Details Date Type Department Care Team (Late st Contact Info) Description 05/01/2023 Refill [facility] #[address] [place] [address] Gladys Varma, COMMUNITY HEALTH ADVISOR, SHREDDING MACHINE KNIFE CHANGER [address] [place] [address] Medication Refill Social History Tobacco Use Types [...] Dept 02/14/23 Office Visit Gladys Varma APRN, [facility] Neurology [facility] 11/15/22 Office Visit Gladys Varma APRN, [facility] Neurology [facility] 09/13/21 Office Visit Gladys Varma APRN, [facility] Showing recent visits within past 730 days and meeting all other requirements Future Appointments Date Type Provider Dept 05/19/23 Appointment Gladys Varma APRN, [facility] Neurology [facility] Showing future appointments within next 90 days and meeting all other requirements Passed - No documented Systolic BP > 200 within past 3 months Passed - Number of active Serotonergic medications less than 3 documented in this encounter Plan of Treatment Upcoming Encounters Date Type Department Care Team (Late st Contact Info) Description 01/13/2025 3:00 PM CDT Office Visit [facility] - Neurology - [place] [address] [place] [address] Gladys Varma APRN, SHREDDING MACHINE KNIFE CHANGER [address] [place] [address] documented as of this encounter Visit Diagnoses Not on filedocumented in this encounter Care Teams Comb Tender Relationship Specialty Start Date End Date Jj Kaiser MD [address] [facility] [place] [address] PCP - General Family Medicine 09/13/21 Andrei Brice DPM Consulting Physician Podiatry 05/23/17 Gladys Varma APRN, SHREDDING MACHINE KNIFE CHANGER [address] [place] [address] Nurse Practitioner Advanced Practice Nurse 11/15/22 documented as of this encounter
--- OUTSIDE RECORDS SUMMARY | 2024-12-18 15:58 | XMS_ITS ---
Author Organization [facility] Address [address] [facility] [place] [address] Phone Care Team Providers Care Fur Trimmer Name Role Phone Andrei Brice DPM Unavailable [phone] Jj Kaiser MD Primary Care Provider [phone] Gladys Varma APRN, CERTIFIED OPHTHALMIC ASSISTANT Unavailable [phone] [facility] Status:Enrolled (Active) Start date:09/15/2024 Enrollment date:09/15/2024 Related social drivers of health:Intimate Partner Violence, Social Connections, Alcohol Use, Tobacco Use, Financial Resource Strain,Depression, Stress, Physical Activity, Food Insecurity, Transportation Needs, Housing Stability, Utilities Continued Care and Services Coordination
--- OUTSIDE RECORDS SUMMARY | 2024-12-18 15:58 | XMS_ITS | Referral Summary ---
Author Organization [facility] Address [address] [place] [address] Care Team Providers Care General Assembler Installer Name Role Phone Jj Kaiser MD Primary Care Provider [phone] Allergies Active Allergy Reactions Criticality Noted Date [...] on file Legal Sex Female 2:04 AM SUBWAY TRAIN OPERATOR Gender Identity Not on file Sexual Orientation Not on file Last Filed Vital Signs Vital Sign Reading Time Taken Comments Blood Pressure 101/70 12/03/2023 2:14 PM CDT Pulse 86 12/03/2023 2:14 PM CDT Temperature 36.2 C (97.1 F) 09/16/2022 6:55 AM SUBWAY TRAIN OPERATOR Respiratory Rate 18 12/03/2023 2:14 PM CDT Oxygen Saturation 95% 12/03/2023 2:14 PM CDT Inhaled Oxygen Concentration - - Weight 74.8 kg (165 lb) 12/03/2023 2:14 PM CDT Height 165.1 cm (5' 5 ) 12/03/2023 2:14 PM CDT Body Mass Index 27.46 12/03/2023 2:14 PM CDT Plan of Treatment Not on file Insurance [facility] Advance Directives For more information, please contact: [phone] * Full Code (Latest Code Status on File) Date Activated Date Inactivated Comments 04/26/2021 3:11 PM 04/28/2021 10:39 PM * Full Code Date Activated Date Inactivated Comments 04/26/2021 6:37 AM 04/26/2021 3:11 PM Full CPR in ca se of cardiopulmonary arrest Care Teams General Assembler Installer Relationship Specialty Start Date End Date Jj Kaiser MD PCP - General 08/18/20
--- OUTSIDE RECORDS SUMMARY | 2024-12-18 15:58 | XMS_ITS | Encounter Summary ---
Author Organization [facility] Address [address] [place] [address] Phone Care Team Providers Care Director Of Revenue Cycle Management Name Role Phone ShivaniLori garduno Edwin BATES Primary Care Provider [phone] Andrei Brice DPM Unavailable [phone] Jj Kaiser MD Primary Care Provider [phone] Gladys Varma JAVASCRIPT UI DEVELOPER, MARKER MACHINE Unavailable + [phone] Reason for Visit * Reason Comments Medication Refill Encounter Details Date Type Department Care Team (Late st Contact Info) Description 12/23/2019 [facility]ill [facility] - [place] #1 [place] [address] Tiffany Lara, JAVASCRIPT UI DEVELOPER, MAGNETIC RESONANCE TECHNOLOGIST #2 [place] [address] Medication Refill Social History Tobacco [...] 01/13/2025 3:00 PM CDT Office Visit [facility] - Neurology - [place] [address] [address] [place] [address] Gladys Varma APRN, MARKER MACHINE #[address] [facility] [place] [place] [facility] [place] [address] documented as of this encounter Visit Diagnoses Not on filedocumented in this encounter Care Teams Director Of Revenue Cycle Management Relationship Specialty Start Date End Date Lori Lo APRN [address] [facility] [place] [address] PCP - General Family Medicine 05/23/17 09/12/21 Jj Kaiser MD [address] [facility] [address] [place] [address] PCP - General Family Medicine 09/13/21 Andrei Brice DPM [address] [facility] [place] [address] Consulting Physician Podiatry 05/23/17 Gladys Varma APRN, MARKER MACHINE [address] [place] [address] Nurse Practitioner Advanced Practice Nurse 11/15/22 documented as of this encounter
--- OUTSIDE RECORDS SUMMARY | 2024-12-18 15:58 | XMS_ITS | Encounter Summary ---
Author Organization [facility] Address [address] [place] [address] Phone Care Team Providers Care Gasoline Tractor Operator Name Role Phone ShivaniLori garduno Edwin BATES Primary Care Provider [phone] Andrei Brice DPM Unavailable [phone] Jj Kaiser MD Primary Care Provider [phone] Gladys Varma APRN, FOREST FIRE OFFICER Unavailable + [phone] Reason for Visit * Reason Comments Medication Refill Encounter Details Date Type Department Care Team (Late Contact Info) Description 05/21/2020 [facility]ill [facility] - [place] #1 [place] [address] Morgan Prado MD #2 [place] [address] Medication Refill Social History Tobacco Use Types [...] 01/13/2025 3:00 PM CDT Office Visit [facility] - Neurology - [place] [address] [address] [place] [address] Gladys Varma APRN, FOREST FIRE OFFICER [address] [facility] [place] [address] documented as of this encounter Visit Diagnoses Not on filedocumented in this encounter Care Teams Gasoline Tractor Operator Relationship Specialty Start Date End Date Lori Lo APRN [address] [facility] [place] [address] PCP - General Family Medicine 05/23/17 09/12/21 Jj Kaiser MD [address] [place] [address] PCP - General Family Medicine 09/13/21 Andrei Brice DPM [address] [place] [address] Consulting Physician Podiatry 05/23/17 Gladys Varma APRN, FOREST FIRE OFFICER [address] [place] [address] Nurse Practitioner Advanced Practice Nurse 11/15/22 documented as of this encounter
--- OUTSIDE RECORDS SUMMARY | 2024-12-18 15:58 | XMS_ITS | Encounter Summary ---
Author Organization [facility] Address [address] [facility] [place] [address] Phone Care Team Providers Care Merchandise Worker Name Role Phone Andrei Brice DPM Unavailable [phone] Jj Kaiser MD Primary Care Provider [phone] Gladys Varma DOCTOR OF NAPRAPATHY, TALENT PROGRAM MANAGER Unavailable Reason for Visit * Reason Comments Medication Refill Encounter Details Date Type Department Care Team (Late Contact Info) Description 01/30/2022 Refill [facility] Neurology [facility] [address] [place] [address] Gladys Varma, DOCTOR OF NAPRAPATHY, TALENT PROGRAM MANAGER [address]2 [place] [address] Medication Refill Social History Tobacco Use Types [...] 3:00 PM CDT Office Visit [facility] Neurology [facility] [address] [place] [address] Gladys Varma APRN, TALENT PROGRAM MANAGER [address] [place] [address] documented as of this encounter Visit Diagnoses Not on filedocumented in this encounter Care Teams Merchandise Worker Relationship Specialty Start Date End Date Jj Kaiser MD [address] [place] [address] [facility] [address] [place] [address] PCP - General Family Medicine 09/13/21 Andrei Brice DPM Consulting Physician Podiatry 05/23/17 Gladys Varma APRN, TALENT PROGRAM MANAGER [address] [place] [address] Nurse Practitioner Advanced Practice Nurse 11/15/22 documented as of this encounter
--- OUTSIDE RECORDS SUMMARY | 2024-12-18 15:58 | XMS_ITS | Encounter Summary ---
Author Organization [facility] Address [address] [place] [address] Phone Care Team Providers Care Rouge Sifter Name Role Phone Andrei Brice DPM Unavailable [phone] Jj Kaiser MD Primary Care Provider [phone] Gladys Varma APRN, CUSTOMER ADVOCACY MANAGER Unavailable Reason for Visit * Reason Comments Medication Refill Encounter Details Date Type Department Care Team (Late st Contact Info) Description 02/13/2023 Refill [facility] [address]2 [place] [address] Gladys Varma, SHEET METAL DUCT INSTALLER APPRENTICE, CUSTOMER ADVOCACY MANAGER #2 [place] [address] Medication Refill Social History Tobacco Use Types [...] Description 01/13/2025 3:00 PM CDT [facility] [address] [place] [address] Gladys Varma APRN, CUSTOMER ADVOCACY MANAGER [address] [place] [address] documented as of this encounter Visit Diagnoses Diagnosis Migraine with aura, not intractable, without status migrainosus documented in this encounter Care Teams Rouge Sifter Relationship Specialty Start Date End Date Jj Kaiser MD [address] [place] [address] [place] [address] [place] [address] PCP - General Family Medicine 09/13/21 Andrei Brice DPM Consulting Physician Podiatry 05/23/17 Gladys Varma APRN, CUSTOMER ADVOCACY MANAGER [address] [place] [address] Nurse Practitioner Advanced Practice Nurse 11/15/22 documented as of this encounter
--- OUTSIDE RECORDS SUMMARY | 2024-12-18 15:58 | XMS_ITS | Encounter Summary ---
Author Organization [facility] Address [address] [place] [address] Phone Care Team Providers Care Optical Instruments Supervisor Name Role Phone Andrei Brice DPM Unavailable [phone] Jj Kaiser MD Primary Care Provider [phone] Gladys Varma APRN, FOREST PATHOLOGY PROFESSOR Unavailable Reason for Visit * Reason Comments Medication Refill Encounter Details Date Type Department Care Team (Late st Contact Info) Description 07/13/2023 Refill [facility] - Neurology [facility] #2 [place] [address] Gladys Varma, MEDICAL DIRECTOR OCCUPATIONAL HEALTH, FOREST PATHOLOGY PROFESSOR #[address] [place] [address] Medication Refill Social History Tobacco Use Types [...] Coronavirus/COVID-19? No / Unsure 06/26/2023 3:13 PM HYDROGEN OPERATOR documented as of this encounter Miscellaneous Notes [...] Dept 05/19/23 Office Visit Gladys Varma APRN, FOREST PATHOLOGY PROFESSOR [facility] Neurology [facility] 02/14/23 Office Visit Gladys Varma APRN, FOREST PATHOLOGY PROFESSOR [place] [facility] [place] 11/15/22 Office Visit Gladys Varma APRN, FOREST PATHOLOGY PROFESSOR [facility] [place] Showing recent visits within past 365 days and meeting all other requirements Future Appointments Date Type Provider Dept 08/25/23 Appointment Gladys Varma APRN, FOREST PATHOLOGY PROFESSOR [facility] [place] Showing future appointments within next 90 days and meeting all other requirements Passed - No active on record Passed - No matching NSAID med order in past 45 days No matching medication orders between 05/29/2023 7:27 PM and 07/13/2023 7:27 PM OGEN OPERATOR documented in this encounter Plan of Treatment Upcoming Encounters Date Type Department Care Team (Late st Contact Info) Description 01/13/2025 3:00 PM CDT Office Visit [facility] - Neurology - [place] [address] [place] [address] Gladys Varma APRN, FOREST PATHOLOGY PROFESSOR [address] [place] [address] documented as of this encounter Visit Diagnoses Diagnosis Chronic migraine with aura without status migrainosus, not intractable- Primary Neck pain Cervicalgia documented in this encounter Care Teams Optical Instruments Supervisor Relationship Specialty Start Date End Date Jj Kaiser MD 4 [facility] [address] [address] PCP - General Family Medicine 09/13/21 Andrei Brice DPM Consulting Physician Podiatry 05/23/17 Gladys Varma APRN, FOREST PATHOLOGY PROFESSOR [address] [place] [address] Nurse Practitioner Advanced Practice Nurse 11/15/22 documented as of this encounter
--- OUTSIDE RECORDS SUMMARY | 2024-12-18 15:58 | XMS_ITS | Encounter Summary ---
Author Organization [facility] Address [address] [place] [address] Phone Care Team Providers Care Pediatric Psychologist Name Role Phone ShivaniLori garduno Edwin BATES Primary Care Provider [phone] Andrei Brice DPM Unavailable [phone] Jj Kaiser MD Primary Care Provider [phone] Gladys Varma APRN, VACCINATOR Unavailable + [phone] Reason for Visit * Reason Comments Medication Refill Encounter Details Date Type Department Care Team (Late Contact Info) Description 06/15/2020 Refill [facility] - [place] #1 [place] [address] Morgan Prado MD #2 [place] [address] Medication Refill Social History Tobacco Use Types [...] 01/13/2025 3:00 PM CDT Office Visit [facility] - Neurology - [place] [address] [address] Gladys Varma APRN, VACCINATOR [address] [place] [address] documented as of this encounter Visit Diagnoses Diagnosis Migraine with aura and without status migrainosus, not intractable Migraine with aura, without mention of intractable migraine without mention of status migrainosus documented in this encounter Care Teams Pediatric Psychologist Relationship Specialty Start Date End Date Lori Lo APRN [address] [facility] [place] [place] [address] PCP - General Family Medicine 05/23/17 09/12/21 Jj Kaiser MD [address] [facility] [place] [address] PCP - General Family Medicine 09/13/21 Andrei Brice DPM [address] [facility] [place] [place] [address] Consulting Physician Podiatry 05/23/17 Gladys Varma APRN, VACCINATOR [address] [place] [address] Nurse Practitioner Advanced Practice Nurse 11/15/22 documented as of this encounter
--- OUTSIDE RECORDS SUMMARY | 2024-12-18 15:58 | XMS_ITS | Encounter Summary ---
Author Organization [facility] Address [address] [facility] [place] [address] Phone Care Team Providers Care Can Sterilizer Name Role Phone Andrei Brice DPM Unavailable [phone] Jj Kaiser MD Primary Care Provider [phone] Gladys Varma APRN, DAYCARE WORKER Unavailable Reason for Visit * Reason Comments Medication Refill Encounter Details Date Type Department Care Team (Late st Contact Info) Description 12/17/2022 Refill [facility] - Neurology [facility] #2 [place] [address] Gladys Varma, NURSE ASSISTANT, DAYCARE WORKER #2 [place] [address] Medication Refill Social History Tobacco Use Types [...] Dept 11/15/22 Office Visit Gladys Varma APRN, [facility] Neurology [facility] [place] 09/13/21 Office Visit Gladys Varma APRN, [facility] Showing recent visits within past 730 days and meeting all other requirements Future Appointments Date Type Provider Dept 02/14/23 Appointment Gladys Varma APRN, [facility] Showing future appointments within next 90 days and meeting all other requirements Passed - No documented Systolic BP > 200 within past 3 months Passed - Number of active Serotonergic medications less than 3 documented in this encounter Plan of Treatment Upcoming Encounters Date Type Department Care Team (Late st Contact Info) Description 01/13/2025 3:00 PM CDT Office Visit [facility] - Neurology - [place] [address] [place] [address] Gladys Varma APRN, DAYCARE WORKER #2 [place] [address] documented as of this encounter Visit Diagnoses Not on filedocumented in this encounter Care Teams Can Sterilizer Relationship Specialty Start Date End Date Jj Kaiser MD [address] [facility] [place] [address] PCP - General Family Medicine 09/13/21 Andrei Brice DPM Consulting Physician Podiatry 05/23/17 Gladys Varma APRN, DAYCARE WORKER [address]2 [place] [address] Nurse Practitioner Advanced Practice Nurse 11/15/22 documented as of this encounter
--- OUTSIDE RECORDS SUMMARY | 2024-12-18 15:58 | XMS_ITS | Encounter Summary ---
Author Organization [facility] Address [address] [facility] [address] Phone Care Team Providers Care Quality Assurance Tester Name Role Phone Andrei Brice DPM Unavailable [phone] Jj Kaiser MD Primary Care Provider [phone] Gladys Varma APRN, PRODUCT EVANGELIST Unavailable Reason for Visit * Reason Comments Medication Refill Encounter Details Date Type Department Care Team (Late st Contact Info) Description 11/04/2022 Refill [facility] - Neurology [facility] #2 [place] [address] Gladys Varma, BULL GANG SUPERVISOR, PRODUCT EVANGELIST #2 [place] [address] Medication Refill Social History Tobacco Use Types [...] order placed on 10/01/2022 8:16 AM Order [id number]: naproxen (NAPROSYN) 500 MG Tablet (For orders [...] Provider Dept 11/15/22 Appointment Gladys Varma APRN, PRODUCT EVANGELIST [facility] [address] Showing future appointments within next 90 days and meeting all other requirements Passed - No active on record documented in this encounter Plan of Treatment Upcoming Encounters Date Type Department Care Team (Late st Contact Info) Description 01/13/2025 3:00 PM CDT Office Visit [facility] - Neurology - [place] [address]2 [place] [address] Gladys Varma APRN, PRODUCT EVANGELIST [address] [place] [address] documented as of this encounter Visit Diagnoses Not on filedocumented in this encounter Care Teams Quality Assurance Tester Relationship Specialty Start Date End Date Jj Kaiser MD [address] [place] [address] [facility] [address] [place] [address] PCP - General Family Medicine 09/13/21 Andrei Brice DPM Consulting Physician Podiatry 05/23/17 Gladys Varma APRN, PRODUCT EVANGELIST [address] [place] [address] Nurse Practitioner Advanced Practice Nurse 11/15/22 documented as of this encounter
--- OUTSIDE RECORDS SUMMARY | 2024-12-18 15:58 | XMS_ITS | Encounter Summary ---
Author Organization [facility] Address [address] [place] [address] Phone Care Team Providers Care Net Programmer Analyst Name Role Phone Andrei Brice DPM Unavailable [phone] Jj Kaiser MD Primary Care Provider Gladys Varma APRN, INSTRUMENT TECHNICIAN Unavailable Reason for Visit * Reason Comments Medication Refill Encounter Details Date Type Department Care Team (Late st Contact Info) Description 06/30/2023 Refill [facility] - Neurology [facility] #2 [place] [address] Gladys Varma, NURSES EDUCATOR, INSTRUMENT TECHNICIAN #2 [place] [address] Medication Refill Social History Tobacco Use Types [...] Coronavirus/COVID-19? No / Unsure 06/26/2023 3:13 PM MARINE ELECTRICIAN documented as of this encounter Miscellaneous Notes [...] Dept 05/19/23 Office Visit Gladys Varma APRN, [facility] Neurology [facility] [place] 02/14/23 Office Visit Gladys Varma APRN, [facility] [place] 11/15/22 Office Visit Gladys Varma APRN, [facility] Showing recent visits within past 365 days and meeting all other requirements Future Appointments Date Type Provider Dept 08/25/23 Appointment Gladys Varma APRN, [facility] [place] Showing future appointments within next 90 days and meeting all other requirements NE ELECTRICIAN documented in this encounter Plan of Treatment Upcoming Encounters Date Type Department Care Team (Late st Contact Info) Description 01/13/2025 3:00 PM CDT Office Visit [facility] - Neurology - [place] [address] [place] [address] Gladys Varma APRN, INSTRUMENT TECHNICIAN #[address] [place] [address] documented as of this encounter Visit Diagnoses Not on filedocumented in this encounter Care Teams Net Programmer Analyst Relationship Specialty Start Date End Date Jj Kaiser MD [address] [place] [address] PCP - General Family Medicine 09/13/21 Andrei Brice DPM Consulting Physician Podiatry 05/23/17 Gladys Varma APRN, INSTRUMENT TECHNICIAN [address] [place] [address] Nurse Practitioner Advanced Practice Nurse 11/15/22 documented as of this encounter
--- OUTSIDE RECORDS SUMMARY | 2024-12-18 15:58 | XMS_ITS | Encounter Summary ---
Author Organization [facility] Address [address] [place] [address] Phone Care Team Providers Care Surfacing Technician Name Role Phone ShivaniLori garduno Edwin BATES Primary Care Provider [phone] Andrei Brice DPM Unavailable [phone] Jj Kaiser MD Primary Care Provider [phone] Gladys Varma APRN, MECHANICAL SYSTEM TECHNICIAN Unavailable + [phone] Reason for Visit * Reason Comments Medication Refill Encounter Details Date Type Department Care Team (Late Contact Info) Description 03/20/2020 Refill [facility] #1 [place] [address] Morgan Prado MD #2 [place] [address] Medication Refill Social History Tobacco Use Types [...] [facility] - Neurology - [place] [address] [address] Gladys Varma APRN, MECHANICAL SYSTEM TECHNICIAN [address] [place] [address] documented as of this encounter Visit Diagnoses Diagnosis Migraine with aura and without status migrainosus, not intractable- Primary Migraine with aura, without mention of intractable migraine without mention of status migrainosus documented in this encounter Care Teams Surfacing Technician Relationship Specialty Start Date End Date Lori Lo APRN [address] [facility] [place] [address] PCP - General Family Medicine 05/23/17 09/12/21 Jj Kaiser MD [address] [facility] [place] [place] [address] PCP - General Family Medicine 09/13/21 Andrei Brice DPM [address] [facility] [place] [place] [address] Consulting Physician Podiatry 05/23/17 Gladys Varma APRN, MECHANICAL SYSTEM TECHNICIAN [address] [place] [address] Nurse Practitioner Advanced Practice Nurse 11/15/22 documented as of this encounter
--- OUTSIDE RECORDS SUMMARY | 2024-12-18 15:58 | XMS_ITS | Clinical Summary ---
Author Organization [facility] Address [address] [facility], [place] [address] Phone Care Team Providers Care Swiss Machinist Name Role Phone Andrei Brice DPM Unavailable [phone] Jj Kaiser MD Primary Care Provider [phone] Gladys Varma BIOMATERIALS ENGINEER, APPLIANCE SERVICE SUPERVISOR Unavailable [phone] Allergies Active Allergy Reactions Criticality Noted Date Comments Amoxicillin-Pot Clavulanate Unknown 05/23/20 17 Medications Xulane 150-35 MCG/24HR PATCH WEEKLY 2 Active buPROPion (WELLBUTRIN) 100 MG Tablet Take 100 mg by mouth 2 times daily. Active Topiramate 50 MG Tablet TAKE 1 TABLET BY MOUTH NIGHTLY 90 Tablet 1 4 Active cyclobenzaprine (FLEXERIL) 10 MG Tablet TAKE 1 TABLET BY MOUTH 3 TIMES DAILY NEEDED FOR MUSCLE SPASMS FOR UP TO 30 DAYS. 30 Tablet 2 4 Active pantoprazole (PROTONIX) 40 MG Tablet Delayed Response Take 1 Tablet by mouth daily. 30 Tablet 4 Active traMADol (ULTRAM) 50 MG TabletIndicatio ns:Gastritis without bleeding, unspecified chronicity, unspecified gastritis type Take 1-2 Tablets by mouth every 6 hours as needed for Severe pain. 12 Tablet 4 Active topiramate (TOPAMAX) 100 MG TabletIndicatio ns:Chronic migraine with aura without status migrainosus, not intractable TAKE 2 TABLETS BY MOUTH EVERY DAY 180 Tablet 2 4 Active naproxen (NAPROSYN) 500 MG TabletIndicatio ns:Neck pain TAKE 1 TABLET BY MOUTH DAILY NEEDED FOR HEADACHES. 30 Tablet 2 5 Active Rizatriptan Benzoate 10 MG Tablet TAKE 1 TABLET BY MOUTH ONCE NEEDED FOR HEADACHES. MAY REPEAT IN 2 HOURS IN NEEDED 10 Tablet 2 5 Active ondansetron (ZOFRAN-ODT) 4 MG TABLET DISPERSIBLEIndi cations:Chronic migraine with aura without status migrainosus, not intractable TAKE 1 TABLET BY MOUTH EVERY 8 HOURS NEEDED FOR NAUSEA FIRST LINE 30 Tablet 5 Active Rizatriptan Benzoate 10 MG Tablet TAKE 1 TABLET BY MOUTH ONCE NEEDED FOR HEADACHES. MAY REPEAT IN 2 HOURS IN NEEDED 10 Tablet 2 4 025 Discontinued ondansetron (ZOFRAN-ODT) 4 MG TABLET DISPERSIBLEIndi cations:Chronic migraine with aura without status migrainosus, not intractable TAKE 1 TABLET BY MOUTH EVERY 8 HOURS NEEDED FOR NAUSEA FIRST LINE 30 Tablet 5 025 Discontinued Active Problems Problem Noted Date Diagnosed Date Migraine with aura and witho ut status migrainosus, not intractable 04/21/2019 Paronychia of great toe, left 06/05/2017 Encounters Date Type Department Care Team Description 11/19/2024 [facility] [address] [place] [phone] Gladys Varma APRN, APPLIANCE SERVICE SUPERVISOR Medication Refill 11/01/2024 Telephone [facility] [address] [place] [address] Morgan Prado MD 11/01/2024 [facility] [address] [place] [address] Gladys Varma APRN, APPLIANCE SERVICE SUPERVISOR Medication Refill 10/05/2024 [facility] [place] [address] [place] [address] Gladys Varma APRN, APPLIANCE SERVICE SUPERVISOR Medication Refill from Last 3 Months Family [...] 06/04/2024 10:59 AM CDT Plan of Treatment Upcoming Encounters Date Type Department Care Team (Late st Contact Info) Description 01/13/2025 3:00 PM CDT Office Visit [facility] Neurology [facility] [address] [place] [address] Gladys Vrama APRN, APPLIANCE SERVICE SUPERVISOR [address] [place] [address] Health Maintenance Due Date Last Done Comments Hepatitis C Virus (HCV) Screening 1986 TdaP Immunization 1986 Hepatitis B Immunization (1 of 3 - 19+ 3-dose series) 2005 Pap Smear 11/08/2007 Cervical Cancer Screening (CCS) 2016 HPV/Cotest 2016 SARS-COV-2 Immunization ( - 2023- season) 2024 Influenza Immunization (Seas on Ended) 2025 07/18/2016 Respiratory Syncytial Virus (RSV) Immunization (Adult) (1 - 1-dose 75+ series) 2061 Meningococcal Immunization (ACWY) Aged Out No longer eligible based on patient's age to complete this topic Pneumococcal Immunization Combined Aged Out No longer eligible based on patient's age to complete this topic Rotavirus Immunization Aged Out No lo nger eligible based on patient's age to complete this topic Insurance MEDICAID [place] Care Teams Swiss Machinist Relationship Specialty Start Date End Date Jj Kaiser MD [address] [place] [address] PCP - General Family Medicine 09/13/21 Andrei Brice DPM Consulting Physician Podiatry 05/23/17 Gladys Varma APRN, APPLIANCE SERVICE SUPERVISOR [address] [place] [address] Nurse Practitioner Advanced Practice Nurse 11/15/22
--- OUTSIDE RECORDS SUMMARY | 2024-12-18 15:58 | XMS_ITS | Encounter Summary ---
Author Organization [facility] Address [address] [facility] [place] [address] Phone Care Team Providers Care Entry Specialists Name Role Phone Andrei Brice DPM Unavailable [phone] Jj Kaiser MD Primary Care Provider [phone] Gladys Varma DISPATCHER RADIOACTIVE WASTE DISPOSAL, CUT OUT OPERATOR Unavailable Reason for Visit * Reason Comments Medication Refill Encounter Details Date Type Department Care Team (Late Contact Info) Description 05/28/2022 Refill [facility] Neurology [facility] [address] [place] [address] Gladys Varma, DISPATCHER RADIOACTIVE WASTE DISPOSAL, CUT OUT OPERATOR [address] [place] [address] Medication Refill Social History Tobacco Use Types [...] Description 01/13/2025 3:00 PM CDT Office Visit [facility] Neurology [facility] [address] [place] [address] Gladys Varma APRN, CUT OUT OPERATOR [address] [place] [address] documented as of this encounter Visit Diagnoses Not on filedocumented in this encounter Care Teams Entry Specialists Relationship Specialty Start Date End Date Jj Kaiser MD [address] [place] [address] [facility] [address] [place] [address] PCP - General Family Medicine 09/13/21 Andrei Brice DPM Consulting Physician Podiatry 05/23/17 Gladys Varma APRN, CUT OUT OPERATOR [address] [place] [address] Nurse Practitioner Advanced Practice Nurse 11/15/22 documented as of this encounter
--- OUTSIDE RECORDS SUMMARY | 2024-12-18 15:58 | XMS_ITS | Encounter Summary ---
Author Organization [facility] Address [address] [place] [address] Phone Care Team Providers Care Manager Billing Name Role Phone Andrei Brice DPM Unavailable [phone] Jj Kaiser MD Primary Care Provider Gladys Varma APRN, USED CAR SALESPERSON Unavailable Reason for Visit * Reason Comments Medication Refill Encounter Details Date Type Department Care Team (Late st Contact Info) Description 11/01/2024 Refill [facility] - Neurology [facility] [address] [place] [address] Gladys Varma, DIRECTOR OF COLLECTIONS, USED CAR SALESPERSON [address] [place] [address] Medication Refill Social History Tobacco Use Types [...] encounter Miscellaneous Notes * Telephone Encounter - Jaylene Foreman RN - 11/02/2024 1:08 PM CDT Medication failed the protocol, provider to review and approve the medication order if appropriate. Requested Prescriptions Pending Prescriptions Disp Refills Topiramate 50 MG Tablet [Pharmacy Med Name: TOPIRAMATE 50 MG TABLET] 90 Tablet 0 Sig: TAKE 1 TABLET BY MOUTH NIGHTLY Not Delegated - Anticonvulsants Excluding Benzodiazepines Protocol Failed - 11/02/2024 1:08 PM Failed - This refill cannot be delegated Passed - Visit with relevant provider in past 12 months or upcoming 90 days Recent Visits Date Type Provider Dept 11/03/23 Office Visit Gladys Varma APRN, [facility] Neurology [facility] [address] Showing recent visits within past 365 days and meeting all other requirements Future Appointments Date Type Provider Dept 01/13/25 Appointment Gladys Varma APRN, [facility] Neurology [facility] [address] [facility] Showing future appointments within next 90 days and meeting all other requirements documented in this encounter Plan of Treatment Upcoming Encounters Date Type Department Care Team (Late st Contact Info) Description 01/13/2025 3:00 PM CDT Office Visit [facility] - Neurology - [place] [address] [place] [address] Gladys Varma APRN, [place] [address] [place] [address] documented as of this encounter Visit Diagnoses Not on filedocumented in this encounter Care Teams Manager Billing Relationship Specialty Start Date End Date Jj Kaiser MD [address] [place] [address] PCP - General Family Medicine 09/13/21 Andrei Brice DPM Consulting Physician Podiatry 05/23/17 Gladys Varma APRN, USED CAR SALESPERSON [address] [place] [address] Nurse Practitioner Advanced Practice Nurse 11/15/22 documented as of this encounter
--- OUTSIDE RECORDS SUMMARY | 2024-12-18 15:58 | XMS_ITS | Clinical Summary ---
Author Organization [facility] Address [address] [place] [address] Care Team Providers Care Sales Development Coordinator Name Role Phone Jj Kaiser MD Primary Care Provider [phone] Allergies Active Allergy Reactions Criticality Noted Date [...] on file Legal Sex Female 2:04 AM DIRECTOR VETERINARY Gender Identity Not on file Sexual Orientation [...] 36.2 C (97.1 F) 09/16/2022 6:55 AM DIRECTOR VETERINARY Respiratory Rate 18 12/03/2023 2:14 PM CDT [...] Depression Screening 1986 Hepatitis C Screening 1986 DTaP/Tdap/Td Vaccine (1 - Tdap) 1997 Varicella Vaccines (1 of 2 - 13+ 2-dose series) 11/08/1999 Hepatitis B Screening 2004 Regular Well Visit/Exam 18-64 2004 Pneumococcal vaccine <65 (1 of 2 - PCV) 2005 Influenza Vaccine (Season Ended) 2025 07/18/20 16 HPV Vaccines Aged Out No longer eligi ble based on patient's age to complete this topic Insurance [facility] Advance Directives For more information, please contact: [phone] * Full Code (Latest Code Status on File) Date Activated Date Inactivated Comments 04/26/2021 3:11 PM 04/28/2021 10:39 PM * Full Code Date Activated Date Inactivated Comments 04/26/2021 6:37 AM 04/26/2021 3:11 PM Full CPR in ca se of cardiopulmonary arrest Care Teams Sales Development Coordinator Relationship Specialty Start Date End Date Jj Kaiser MD PCP - General 08/18/20
--- OUTSIDE RECORDS SUMMARY | 2024-12-18 15:58 | XMS_ITS | Encounter Summary ---
Author Organization [facility] Address [address] [facility] [place] [place] [address] Phone Care Team Providers Care Valve And Regulator Repairer Name Role Phone Andrei Brice DPM Unavailable [phone] Jj Kaiser MD Primary Care Provider [phone] Gladys Varma DATA MANAGEMENT ASSOCIATE, BRIDGE MAINTENANCE WORKER Unavailable Reason for Visit * Reason Comments Medication Refill Encounter Details Date Type Department Care Team (Late Contact Info) Description 10/01/2022 Refill [facility] Neurology [facility] [address] [place] [address] Gladys Varma, DATA MANAGEMENT ASSOCIATE, BRIDGE MAINTENANCE WORKER [address] [place] [address] Medication Refill Social History Tobacco Use Types [...] Description 01/13/2025 3:00 PM CDT Office Visit [facility] Neurology [facility] [address] [place] [address] Gladys Varma APRN, BRIDGE MAINTENANCE WORKER [address] [place] [address] documented as of this encounter Visit Diagnoses Not on filedocumented in this encounter Care Teams Valve And Regulator Repairer Relationship Specialty Start Date End Date Jj Kaiser MD [address] [place] [address] [facility] [address] [place] [address] PCP - General Family Medicine 09/13/21 Andrei Brice DPM Consulting Physician Podiatry 05/23/17 Gladys Varma APRN, BRIDGE MAINTENANCE WORKER [address] [place] [address] Nurse Practitioner Advanced Practice Nurse 11/15/22 documented as of this encounter
== END 2024-12-18 09:36 | disposition home or self-care (01) ==
PROVIDERS: PCP Family Medicine
DX: J10.1 Influenza due to other identified influenza virus with other respiratory manifestations (principal)
CPT/HCPCS: 87804; 99212; G0463

== ENCOUNTER 2025-03-24 17:58 | Emergency (ER) | payer OTHER, SELFPAY ==
--- NOTE | ~2025-03-24 | XR_ITS ---
HISTORY: pain medial rt hand, COMPARISON: None TECHNIQUE: 33 views of the right hand were performed. FINDINGS: No acute fracture is identified. The joint spaces are preserved. The carpal arcs are intact. Mild radiocarpal joint space narrowing with sclerosis of the distal radius is present. Bone mineralization is age-appropriate. No significant soft tissue swelling. No radiopaque foreign body is identified. IMPRESSION: No acute fracture or dislocation within the right hand, as detailed above. Reviewed, dictated and finalized at location A.
--- OUTSIDE RECORDS SUMMARY | 2025-03-24 18:00 | XMS_ITS | Encounter Summary ---
Author Organization [facility] Address [address] [place] [address] Phone Care Team Providers Care Buggy Driver Name Role Phone Andrei Brice DPM Unavailable [phone] Jj Kaiser MD Primary Care Provider [phone] Gladys Varma GAMING CAGE CASHIER, SYSTEMS MANAGEMENT CONSULTANT Unavailable Reason for Visit * Reason Comments Medication Refill Encounter Details Date Type Department Care Team (Late Contact Info) Description 05/26/2022 Refill [facility] Neurology [facility] [address] [place] [address] Gladys Varma, GAMING CAGE CASHIER, SYSTEMS MANAGEMENT CONSULTANT [address] [place] [address] Medication Refill Social History Tobacco Use Types [...] Department Care Team (Late Contact Info) Description 01/10/2026 3:00 PM CDT Office Visit [facility] Neurology [facility] [address] [place] [address] Gladys Varma APRN, SYSTEMS MANAGEMENT CONSULTANT [address] [place] [address] documented as of this encounter Visit Diagnoses Not on filedocumented in this encounter Care Teams Buggy Driver Relationship Specialty Start Date End Date Jj Kaiser MD [address] [place] [address] [facility] [address] [place] [address] PCP - General Family Medicine 09/13/21 Andrei Brice DPM Consulting Physician Podiatry 05/23/17 Gladys Varma APRN, SYSTEMS MANAGEMENT CONSULTANT [address] [place] [address] Nurse Practitioner Advanced Practice Nurse 11/15/22 documented as of this encounter
--- OUTSIDE RECORDS SUMMARY | 2025-03-24 18:00 | XMS_ITS | Encounter Summary ---
Author Organization [facility] Address [address] [facility] [place] [address] Phone Care Team Providers Care Bass Guitar Teacher Name Role Phone Andrei Brice DPM Unavailable [phone] Jj Kaiser MD Primary Care Provider Gladys Varma APRN, FAMILY PROGRAM SPECIALIST Unavailable Reason for Visit * Reason Comments Medication Refill Encounter Details Date Type Department Care Team (Late st Contact Info) Description 11/01/2024 Refill [facility] - Neurology [facility] [address] [place] [address] Gladys Varma, ELIGIBILITY CONSULTANT, FAMILY PROGRAM SPECIALIST [address] [place] [address] Medication Refill Social History Tobacco Use Types [...] 11/03/23 Office Visit Gladys Varma APRN, BRITTANY [facility] Neurology [facility] Showing recent visits within past 365 days and meeting all other requirements Future Appointments Date Type Provider Dept 01/13/25 Appointment Gladys Varma APRN, BRITT[facility] Neurology [facility] Showing future appointments within next 90 days and meeting all other requirements documented in this encounter Plan of Treatment Upcoming Encounters Date Type Department Care Team (Late st Contact Info) Description 01/10/2026 3:00 PM CDT Office Visit [facility] - Neurology - [place] [address] [place] [address] Gladys Varma APRN, BRITTANY [address] [place] [address] documented as of this encounter Visit Diagnoses Not on filedocumented in this encounter Care Teams Bass Guitar Teacher Relationship Specialty Start Date End Date Jj Kaiser MD [address] [place] [address] PCP - General Family Medicine 09/13/21 Andrei Brice DPM Consulting Physician Podiatry 05/23/17 Gladys Varma APRN, FAMILY PROGRAM SPECIALIST [address] [place] [address] Nurse Practitioner Advanced Practice Nurse 11/15/22 documented as of this encounter
--- OUTSIDE RECORDS SUMMARY | 2025-03-24 18:00 | XMS_ITS | Encounter Summary ---
Author Organization [facility] Address [address] [place] [address] Phone Care Team Providers Care Coding Advisor Name Role Phone Andrei Brice DPM Unavailable [phone] Jj Kaiser MD Primary Care Provider [phone] Gladys Varma APRN, FUNCTIONAL SKILLS TUTOR Unavailable Reason for Visit * Reason Comments Medication Refill Encounter Details Date Type Department Care Team (Late st Contact Info) Description 12/17/2022 Refill [facility] - Neurology [facility] [address] [place] [address] Gladys Varma, ADVERTISEMENT DISTRIBUTOR, FUNCTIONAL SKILLS TUTOR [address] [place] [address] Medication Refill Social History Tobacco Use Types [...] Dept 11/15/22 Office Visit Gladys Varma APRN, [facility] Neurology [facility] [place] 09/13/21 Office Visit Gladys Varma APRN, [facility] Showing recent visits within past 730 days and meeting all other requirements Future Appointments Date Type Provider Dept 02/14/23 [facility]ointment [facility] Showing future appointments within next 90 days and meeting all other requirements Passed - No documented Systolic BP > 200 within past 3 months Passed - Number of active Serotonergic medications less than 3 documented in this encounter Plan of Treatment Upcoming Encounters Date Type Department Care Team (Late st Contact Info) Description 01/10/2026 3:00 PM CDT Office Visit [facility] - Neurology - [place] [address] [place] [address] Gladys Varma APRN, FUNCTIONAL SKILLS TUTOR [address] [place] [address] documented as of this encounter Visit Diagnoses Not on filedocumented in this encounter Care Teams Coding Advisor Relationship Specialty Start Date End Date Jj Kaiser MD [address] [place] [address] PCP - General Family Medicine 09/13/21 Andrei Brice DPM Consulting Physician Podiatry 05/23/17 Gladys Varma APRN, FUNCTIONAL SKILLS TUTOR [address] [place] [address] Nurse Practitioner Advanced Practice Nurse 11/15/22 documented as of this encounter
--- OUTSIDE RECORDS SUMMARY | 2025-03-24 18:00 | XMS_ITS | Encounter Summary ---
Author Organization [facility] Address [address] [place] [address] Phone Care Team Providers Care Bakery Decorator Name Role Phone Andrei Brice DPM Unavailable [phone] Jj Kaiser MD Primary Care Provider [phone] Gladys Varma FACILITIES MECHANICAL DESIGN ENGINEER, RISK CONSULTING TREASURY DIRECTOR Unavailable Reason for Visit * Reason Comments Medication Refill Encounter Details Date Type Department Care Team (Late Contact Info) Description 01/30/2022 Refill [facility] Neurology [facility] [address] [place] [address] Gladys Varma, FACILITIES MECHANICAL DESIGN ENGINEER, RISK CONSULTING TREASURY DIRECTOR #2 [place] [address] Medication Refill Social History Tobacco Use Types [...] Description 01/10/2026 3:00 PM CDT Office Visit [facility] Neurology [facility] [address] [place] [address] Gladys Varma APRN, RISK CONSULTING TREASURY DIRECTOR [address] [place] [address] documented as of this encounter Visit Diagnoses Not on filedocumented in this encounter Care Teams Bakery Decorator Relationship Specialty Start Date End Date Jj Kaiser MD [address] [place] [address] [facility] [address] [place] [address] PCP - General Family Medicine 09/13/21 Andrei Brice DPM Consulting Physician Podiatry 05/23/17 Gladys Varma APRN, RISK CONSULTING TREASURY DIRECTOR [address] [place] [address] Nurse Practitioner Advanced Practice Nurse 11/15/22 documented as of this encounter
--- OUTSIDE RECORDS SUMMARY | 2025-03-24 18:00 | XMS_ITS | Encounter Summary ---
Author Organization [facility] Address [address] [place] [address] Phone Care Team Providers Care Ear Flap Binder Name Role Phone Andrei Brice DPM Unavailable [phone] Jj Kaiser MD Primary Care Provider [phone] Gladys Varma APRN, CANDLE MOLDER Unavailable Reason for Visit * Reason Comments Medication Refill Encounter Details Date Type Department Care Team (Late st Contact Info) Description 11/22/2022 Refill [facility] #2 [place] [address] Gladys Varma, ASSISTANT CORPORATE SECRETARY, CANDLE MOLDER [address] [place] [address] Medication Refill Social History Tobacco Use Types [...] Dept 11/15/22 Office Visit Gladys Varma APRN, CANDLE MOLDER [facility] Neurology [facility] [place] Showing recent visits within past 365 days and meeting all other requirements Future Appointments Date Type Provider Dept 02/14/23 Appointment Gladys Varma APRN, CANDLE MOLDER [facility] Neurology [facility] Showing future appointments within next 90 days and meeting all other requirements documented in this encounter Plan of Treatment Upcoming Encounters Date Type Department Care Team (Late st Contact Info) Description 01/10/2026 3:00 PM CDT [facility] - [place] [address] [place] [address] Gladys Varma APRN, CANDLE MOLDER [address] [place] [address] documented as of this encounter Visit Diagnoses Not on filedocumented in this encounter Care Teams Ear Flap Binder Relationship Specialty Start Date End Date Jj Kaiser MD [address] [place] [address] [place] [address] PCP - General Family Medicine 09/13/21 Andrei Brice DPM Consulting Physician Podiatry 05/23/17 Gladys Varma APRN, CANDLE MOLDER [address] [place] [address] Nurse Practitioner Advanced Practice Nurse 11/15/22 documented as of this encounter
--- OUTSIDE RECORDS SUMMARY | 2025-03-24 18:00 | XMS_ITS | Encounter Summary ---
Author Organization [facility] Address [address] [place] [address] Phone Care Team Providers Care Child Care Lead Teacher Name Role Phone ShivaniLori garduno Edwin BATES Primary Care Provider [phone] Andrei Brice DPM Unavailable [phone] Jj Kaiser MD Primary Care Provider [phone] Gladys Varma APRN, PAYABLE REPRESENTATIVE Unavailable [phone] Reason for Visit * Reason Comments Medication Refill Encounter Details Date Type Department Care Team (Late Contact Info) Description 06/15/2020 [facility]ill [facility] - [place] [address] [place] [address] Morgan Prado MD #2 [place] [address] Medication Refill Social History Tobacco Use Types [...] Description 01/10/2026 3:00 PM CDT Office Visit [facility] - Neurology - [place] [address] [place] [address] Gladys Varma APRN, PAYABLE REPRESENTATIVE [address] [place] [address] documented as of this encounter Visit Diagnoses Diagnosis Migraine with aura and without status migrainosus, not intractable Migraine with aura, without mention of intractable migraine without mention of status migrainosus documented in this encounter Care Teams Child Care Lead Teacher Relationship Specialty Start Date End Date Lori Lo APRN [address] [place] [address] PCP - General Family Medicine 05/23/17 09/12/21 Jj Kaiser MD [address] [place] [address] PCP - General Family Medicine 09/13/21 Andrei Brice DPM [address] [place] [place] [address] Consulting Physician Podiatry 05/23/17 Gladys Varma APRN, PAYABLE REPRESENTATIVE [address] [place] [address] Nurse Practitioner Advanced Practice Nurse 11/15/22 documented as of this encounter
--- OUTSIDE RECORDS SUMMARY | 2025-03-24 18:00 | XMS_ITS | Encounter Summary ---
Author Organization [facility] Address [address] [place] [address] Phone Care Team Providers Care Wildlife Conservationist Name Role Phone Andrei Brice DPM Unavailable [phone] Jj Kaiser MD Primary Care Provider [phone] Gladys Varma APRN, CHIEF PORT DIRECTOR Unavailable Reason for Visit * Reason Comments Medication Refill Encounter Details Date Type Department Care Team (Late st Contact Info) Description 11/04/2022 Refill [facility] #2 [place] [address] Gladys Varma, STREET LIGHT SERVICER SUPERVISOR, CHIEF PORT DIRECTOR #2 [place] [address] Medication Refill Social History Tobacco Use Types [...] order placed on 10/01/2022 8:16 AM Order [id number]: naproxen (NAPROSYN) 500 MG Tablet (For orders [...] Provider Dept 11/15/22 Appointment Gladys Varma APRN, CHIEF PORT DIRECTOR [facility] Neurology [facility] [address] Showing future appointments within next 90 days and meeting all other requirements Passed - No active on record documented in this encounter Plan of Treatment Upcoming Encounters Date Type Department Care Team (Late st Contact Info) Description 01/10/2026 3:00 PM CDT Office Visit [facility] - Neurology - [place] [address] [place] [address] Gladys Varma APRN, CHIEF PORT DIRECTOR [address] [place] [address] documented as of this encounter Visit Diagnoses Not on filedocumented in this encounter Care Teams Wildlife Conservationist Relationship Specialty Start Date End Date Jj Kaiser MD [address] [place] [address] [facility] [address] [place] [address] PCP - General Family Medicine 09/13/21 Andrei Brice DPM Consulting Physician Podiatry 05/23/17 Gladys Varma APRN, CHIEF PORT DIRECTOR [address] [place] [address] Nurse Practitioner Advanced Practice Nurse 11/15/22 documented as of this encounter
--- OUTSIDE RECORDS SUMMARY | 2025-03-24 18:00 | XMS_ITS | Encounter Summary ---
Author Organization [facility] Address [address] [place] [address] Phone Care Team Providers Care Acid Regenerator Name Role Phone Andrei Brice DPM Unavailable [phone] Jj Kaiser MD Primary Care Provider [phone] Gladys Varma REBAR FABRICATOR, PAPER CONSERVATOR Unavailable Reason for Visit * Reason Comments Medication Refill Encounter Details Date Type Department Care Team (Late Contact Info) Description 10/01/2022 Refill [facility] Neurology [facility] #2 [place] [address] Gladys Varma, REBAR FABRICATOR, PAPER CONSERVATOR #2 [place] [address] Medication Refill Social History Tobacco Use Types [...] Description 01/10/2026 3:00 PM CDT Office Visit [facility] Neurology [facility] [address] [place] [address] Gladys Varma APRN, PAPER CONSERVATOR [address] [place] [address] documented as of this encounter Visit Diagnoses Not on filedocumented in this encounter Care Teams Acid Regenerator Relationship Specialty Start Date End Date Jj Kaiser MD [address] [place] [address] [facility] [address] [place] [address] PCP - General Family Medicine 09/13/21 Andrei Brice DPM Consulting Physician Podiatry 05/23/17 Gladys Varma APRN, PAPER CONSERVATOR [address] [place] [address] Nurse Practitioner Advanced Practice Nurse 11/15/22 documented as of this encounter
--- OUTSIDE RECORDS SUMMARY | 2025-03-24 18:00 | XMS_ITS | Encounter Summary ---
Author Organization [facility] Address [address] [place] [address] Phone Care Team Providers Care Rubber Compounder Mixer Name Role Phone Andrei Brice DPM Unavailable [phone] Jj Kaiser MD Primary Care Provider [phone] Gladys Varma APRN, COMMERCIAL COORDINATOR Unavailable Reason for Visit * Reason Comments Medication Refill Encounter Details Date Type Department Care Team (Late Contact Info) Description 05/28/2022 Refill [facility] Neurology [facility] #2 [place] [address] Gladys Varma, OUTCOME ANALYST, COMMERCIAL COORDINATOR #2 [place] [address] Medication Refill Social History Tobacco Use Types [...] Description 01/10/2026 3:00 PM CDT Office Visit [facility] Neurology [facility] #2 [place] [address] Gladys Varma APRN, COMMERCIAL COORDINATOR [address] [place] [address] documented as of this encounter Visit Diagnoses Not on filedocumented in this encounter Care Teams Rubber Compounder Mixer Relationship Specialty Start Date End Date Jj Kaiser MD [address] [place] [address] [facility] [address] [place] [address] PCP - General Family Medicine 09/13/21 Andrei Brice DPM Consulting Physician Podiatry 05/23/17 Gladys Varma APRN, COMMERCIAL COORDINATOR [address] [place] [address] Nurse Practitioner Advanced Practice Nurse 11/15/22 documented as of this encounter
--- OUTSIDE RECORDS SUMMARY | 2025-03-24 18:00 | XMS_ITS | Encounter Summary ---
Author Organization [facility] Address [address] [facility] [place] [address] Phone Care Team Providers Care Activities Attendant Name Role Phone Andrei Brice DPM Unavailable [phone] Jj Kaiser MD Primary Care Provider [phone] Gladys Varma RETAIL COSMETICS SALES BEAUTY ADVISOR, ACCOUNTING INSTRUCTOR Unavailable Reason for Visit * Reason Comments Medication Refill Encounter Details Date Type Department Care Team (Late Contact Info) Description 12/29/2021 Refill [facility] Neurology [facility] #2 [place] [address] Gladys Varma, RETAIL COSMETICS SALES BEAUTY ADVISOR, ACCOUNTING INSTRUCTOR [address] [place] [address] Medication Refill Social History Tobacco Use Types [...] Description 01/10/2026 3:00 PM CDT Office Visit [facility] Neurology [facility] #2 [place] [address] Gladys Varma APRN, ACCOUNTING INSTRUCTOR #2 [place] [address] documented as of this encounter Visit Diagnoses Diagnosis Migraine with aura, not intractable, without status migrainosus documented in this encounter Care Teams Activities Attendant Relationship Specialty Start Date End Date Jj Kaiser MD [address] [place] [address] [facility] [address] [place] [address] PCP - General Family Medicine 09/13/21 Andrei Brice DPM Consulting Physician Podiatry 05/23/17 Gladys Varma APRN, ACCOUNTING INSTRUCTOR [address]2 [place] [address] Nurse Practitioner Advanced Practice Nurse 11/15/22 documented as of this encounter
--- OUTSIDE RECORDS SUMMARY | 2025-03-24 18:00 | XMS_ITS | Encounter Summary ---
Author Organization [facility] Address [address] [place] [address] Phone Care Team Providers Care Watermelon Inspector Name Role Phone ShivaniLori garduno Edwin BATES Primary Care Provider [phone] Andrei Brice DPM Unavailable [phone] Jj Kaiser MD Primary Care Provider [phone] Gladys Varma APRN, FILM RECORDIST Unavailable + [phone] Reason for Visit * Reason Comments Medication Refill Encounter Details Date Type Department Care Team (Late Contact Info) Description 06/22/2020 [facility]ill [facility] - [place] [address] [place] [address] Morgan Prado MD #2 [place] [address] Medication Refill Social History Tobacco Use Types [...] 01/10/2026 3:00 PM CDT Office Visit [facility] - Neurology - [place] [address] [place] [address] Gladys Varma APRN, FILM RECORDIST [address] [place] [address] documented as of this encounter Visit Diagnoses Diagnosis Migraine with aura and without status migrainosus, not intractable Migraine with aura, without mention of intractable migraine without mention of status migrainosus documented in this encounter Care Teams Watermelon Inspector Relationship Specialty Start Date End Date Lori Lo APRN [address] [facility] [place] [address] PCP - General Family Medicine 05/23/17 09/12/21 Jj Kaiser MD [address] [facility] [place] [address] PCP - General Family Medicine 09/13/21 Andrei Brice DPM [address] [facility] [place] [address] Consulting Physician Podiatry 05/23/17 Gladys Varma APRN, FILM RECORDIST [address] [place] [address] Nurse Practitioner Advanced Practice Nurse 11/15/22 documented as of this encounter
--- OUTSIDE RECORDS SUMMARY | 2025-03-24 18:01 | XMS_ITS | Encounter Summary ---
Author Organization [facility] Address [address] [facility] [place] [place] [address] Phone Care Team Providers Care Waste Specialist Name Role Phone Andrei Brice DPM Unavailable [phone] Jj Kaiser MD Primary Care Provider [phone] Gladys Varma APRN, AUTO SALVAGE WORKER Unavailable Reason for Visit * Reason Comments Medication Refill Encounter Details Date Type Department Care Team (Late st Contact Info) Description 01/05/2024 Refill [facility] - Neurology [facility] #2 [place] [address] Gladys Varma, TAPE MACHINE TAILER, AUTO SALVAGE WORKER [address] [place] [address] Medication Refill Social History Tobacco Use Types [...] Dept 11/03/23 Office Visit Gladys Varma APRN, [facility] 07/30/23 Office Visit Gladys Varma APRN, [facility] 05/19/23 Office Visit Gladys Varma APRN, [facility] [place] 02/14/23 Office Visit Gladys Varma APRN, [facility] Showing recent visits within past 365 days and meeting all other requirements Future Appointments Date Type Provider Dept 02/10/24 Appointment Gladys Varma APRN, [facility] Showing future appointments within next 90 days and meeting all other requirements documented in this encounter Plan of Treatment Upcoming Encounters Date Type Department Care Team (Late st Contact Info) Description 01/10/2026 3:00 PM CDT Office Visit [facility] - Neurology - [place] [address] [place] [address] Gladys Varma APRN, AUTO SALVAGE WORKER [address]2 [place] [address] documented as of this encounter Visit Diagnoses Diagnosis Chronic migraine with aura without status migrainosus, not intractable documented in this encounter Care Teams Waste Specialist Relationship Specialty Start Date End Date Jj Kaiser MD 4 [facility] [address] [place] [address] PCP - General Family Medicine 09/13/21 Andrei Brice DPM Consulting Physician Podiatry 05/23/17 Gladys Varma APRN, AUTO SALVAGE WORKER [address] [place] [address] Nurse Practitioner Advanced Practice Nurse 11/15/22 documented as of this encounter
--- OUTSIDE RECORDS SUMMARY | 2025-03-24 18:01 | XMS_ITS | Encounter Summary ---
Author Organization [facility] Address [address] [facility] [place] [address] Phone Care Team Providers Care Channel Business Manager Name Role Phone Andrei Brice DPM Unavailable [phone] Jj Kaiser MD Primary Care Provider [phone] Gladys Varma DEFENSIVE LINE COACH, ASSISTANT PROFESSOR OF PHILOSOPHY Unavailable Reason for Visit * Reason Comments Medication Refill Encounter Details Date Type Department Care Team (Late Contact Info) Description 04/03/2023 Refill [facility] #2 [place] [address] Gladys Varma, DEFENSIVE LINE COACH, ASSISTANT PROFESSOR OF PHILOSOPHY #[address] [place] [address] Medication Refill Social History Tobacco Use Types [...] Description 01/10/2026 3:00 PM CDT [facility] #2 [place] [address] Gladys Varma APRN, ASSISTANT PROFESSOR OF PHILOSOPHY [address] [place] [address] documented as of this encounter Visit Diagnoses Diagnosis Chronic migraine with aura documented in this encounter Care Teams Channel Business Manager Relationship Specialty Start Date End Date Jj Kaiser MD [address] [place] [address] [facility] [address] [place] [address] PCP - General Family Medicine 09/13/21 Andrei Brice DPM Consulting Physician Podiatry 05/23/17 Gladys Varma APRN, ASSISTANT PROFESSOR OF PHILOSOPHY [address] [place] [address] Nurse Practitioner Advanced Practice Nurse 11/15/22 documented as of this encounter
--- OUTSIDE RECORDS SUMMARY | 2025-03-24 18:01 | XMS_ITS | Encounter Summary ---
Author Organization [facility] Address [address] [place] [address] Phone Care Team Providers Care Departmental Buyer Name Role Phone Andrei Brice DPM Unavailable [phone] Jj Kaiser MD Primary Care Provider [phone] Gladys Varma APRN, SLOT KEY PERSON Unavailable Reason for Visit * Reason Comments Medication Refill Encounter Details Date Type Department Care Team (Late st Contact Info) Description 06/30/2023 Refill [facility] Neu[facility] #2 [place] [address] Gladys Varma, SENIOR INTERACTION DESIGNER, SLOT KEY PERSON #2 [place] [address] Medication Refill Social History Tobacco Use Types [...] Coronavirus/COVID-19? No / Unsure 06/26/2023 3:13 PM PARTS TECHNICIAN documented as of this encounter Miscellaneous Notes [...] Dept 05/19/23 Office Visit Gladys Varma APRN, [facility] Neurology [facility] [place] 02/14/23 Office Visit Gladys Varma APRN, [facility] [place] 11/15/22 Office Visit Gladys Varma APRN, [facility] Showing recent visits within past 365 days and meeting all other requirements Future Appointments Date Type Provider Dept 08/25/23 Appointment Gladys Varma APRN, [facility] [place] Showing future appointments within next 90 days and meeting all other requirements S TECHNICIAN documented in this encounter Plan of Treatment Upcoming Encounters Date Type Department Care Team (Late st Contact Info) Description 01/10/2026 3:00 PM CDT Office Visit [facility] - Neurology - [place] [address] [place] [address] Gladys Varma APRN, SLOT KEY PERSON #[address] [place] [address] documented as of this encounter Visit Diagnoses Not on filedocumented in this encounter Care Teams Departmental Buyer Relationship Specialty Start Date End Date Jj Kaiser MD 4 [facility] [address] [place] [address] PCP - General Family Medicine 09/13/21 Andrei Brice DPM Consulting Physician Podiatry 05/23/17 Gladys Varma APRN, SLOT KEY PERSON #2 [place] [address] Nurse Practitioner Advanced Practice Nurse 11/15/22 documented as of this encounter
--- OUTSIDE RECORDS SUMMARY | 2025-03-24 18:01 | XMS_ITS | Clinical Summary ---
Author Organization [facility] Address [address] [place] [address] Care Team Providers Care Court Registry Officer Name Role Phone Jj Kaiser MD Primary Care Provider [phone] Allergies Active Allergy Reactions Criticality Noted Date [...] on file Legal Sex Female 2:04 AM INSTRUCTOR DRAMATIC ARTS Gender Identity Not on file Sexual Orientation [...] 36.2 C (97.1 F) 09/16/2022 6:55 AM INSTRUCTOR DRAMATIC ARTS Respiratory Rate 18 12/03/2023 2:14 PM CDT Oxygen Saturation 95% 12/03/2023 2:14 PM CDT Inhaled Oxygen Concentration - - Weight 74.8 kg (165 lb) 12/03/2023 2:14 PM CDT Height 165.1 cm (5' 5) 12/03/2023 2:14 PM CDT Body Mass Index 27.46 12/03/2023 2:14 PM CDT Plan of Treatment Health Maintenance Due Date Last Done Comments Cervical Cancer Screening 1986 Depression Screening 1986 Hepatitis C Screening 1986 DTaP/Tdap/Td Vaccine (1 - Tdap) 1997 Varicella Vaccines (1 of 2 - 13+ 2-dose series) 1999 Hepatitis B Screening 2004 Regular Well Visit/Exam 18-64 2004 Pneumococcal vaccine <65 (1 of 2 - PCV) 2005 HPV Vaccines (1 - 3-dose SCDM series) 2013 Influenza Vaccine (#1) 2025 07/18/2016 Insurance [facility] Advance Directives For more information, please contact: [phone] * Full Code (Latest Code Status on File) Date Activated Date Inactivated Comments 04/26/2021 3:11 PM 04/28/2021 10:39 PM * Full Code Date Activated Date Inactivated Comments 04/26/2021 6:37 AM 04/26/2021 3:11 PM Full CPR in ca se of cardiopulmonary arrest Care Teams Court Registry Officer Relationship Specialty Start Date End Date Jj Kaiser MD PCP - General 08/18/20
--- OUTSIDE RECORDS SUMMARY | 2025-03-24 18:01 | XMS_ITS | Encounter Summary ---
Author Organization [facility] Address [address] [place] [address] Phone Care Team Providers Care Terry Cloth Cutter Hand Name Role Phone Andrei Brice DPM Unavailable [phone] Jj Kaiser MD Primary Care Provider [phone] Gladys Varma APRN, ELECTRIC RANGE SERVICER Unavailable Reason for Visit * Reason Comments Medication Refill Encounter Details Date Type Department Care Team (Late st Contact Info) Description 02/13/2023 Refill [facility] - Neurology [facility] #2 [place] [address] Gladys Varma, ADMINISTRATIVE RESOURCES ASSOCIATE, ELECTRIC RANGE SERVICER #2 [place] [address] Medication Refill Social History Tobacco Use Types [...] Description 01/10/2026 3:00 PM CDT [facility] #2 [place] [address] Gladys Varma APRN, ELECTRIC RANGE SERVICER #2 [place] [address] documented as of this encounter Visit Diagnoses Diagnosis Migraine with aura, not intractable, without status migrainosus documented in this encounter Care Teams Terry Cloth Cutter Hand Relationship Specialty Start Date End Date Jj Kaiser MD [address] [place] [address] [place] [address] [place] [address] PCP - General Family Medicine 09/13/21 Andrei Brice DPM Consulting Physician Podiatry 05/23/17 Gladys Varma APRN, ELECTRIC RANGE SERVICER [address] [place] [address] Nurse Practitioner Advanced Practice Nurse 11/15/22 documented as of this encounter
--- OUTSIDE RECORDS SUMMARY | 2025-03-24 18:01 | XMS_ITS | Encounter Summary ---
Author Organization [facility] Address [address] [facility] [place] [address] Phone Care Team Providers Care Wet Suit Gluer Name Role Phone Andrei Brice DPM Unavailable [phone] Jj Kaiser MD Primary Care Provider [phone] Gladys Varma APRN, STUDIO ARTIST Unavailable Reason for Visit * Reason Comments Medication Refill Encounter Details Date Type Department Care Team (Late st Contact Info) Description 09/04/2023 Refill [facility] - Neurology [facility] #2 [place] [address] Gladys Varma, HR LEADER, STUDIO ARTIST #2 [place] [address] Medication Refill Social History Tobacco Use Types [...] Dept 07/30/23 Office Visit Gladys Varma APRN, [facility] Neurology [facility] 05/19/23 Office Visit Gladys Varma APRN, [facility] 02/14/23 Office Visit Gladys Varma APRN, [facility] 11/15/22 Office Visit Gladys Varma APRN, [facility] Neurology [facility] [address] 09/13/21 Office Visit Gladys Varma APRN, [facility] Showing recent visits within past 730 days and meeting all other requirements Future Appointments Date Type Provider Dept 11/03/23 Appointment Gladys Varma APRN, [facility] Showing future appointments within next 90 days and meeting all other requirements Passed - No documented Systolic BP > 200 within past 3 months Passed - Number of active Serotonergic medications less than 3 COLLECTOR TREATER documented in this encounter Plan of Treatment Upcoming Encounters Date Type Department Care Team (Late st Contact Info) Description 01/10/2026 3:00 PM CDT Office Visit [facility] - Neurology - [place] [address] [place] [address] Gladys Varma APRN, STUDIO ARTIST #[address] [place] [address] documented as of this encounter Visit Diagnoses Not on filedocumented in this encounter Care Teams Wet Suit Gluer Relationship Specialty Start Date End Date Jj Kaiser MD [address] [place] [address] [address] [place] [address] PCP - General Family Medicine 09/13/21 Andrei Brice DPM Consulting Physician Podiatry 05/23/17 Gladys Varma APRN, STUDIO ARTIST #[address] [place] [address] Nurse Practitioner Advanced Practice Nurse 11/15/22 documented as of this encounter
--- OUTSIDE RECORDS SUMMARY | 2025-03-24 18:01 | XMS_ITS | Encounter Summary ---
Author Organization [facility] Address [address] [facility] [place] [address] Phone Care Team Providers Care Commercial Maintenance Technician Name Role Phone Andrei Brice DPM Unavailable [phone] Jj Kaiser MD Primary Care Provider [phone] Gladys Varma APRN, SENIOR PROGRAM ANALYST Unavailable Reason for Visit * Reason Comments Medication Refill Encounter Details Date Type Department Care Team (Late st Contact Info) Description 05/01/2023 Refill [facility] - Neurology [facility] #2 [place] [address] Gladys Varma, CHAR BELT OPERATOR, SENIOR PROGRAM ANALYST #[address] [place] [address] Medication Refill Social History Tobacco Use Types [...] Dept 02/14/23 Office Visit Gladys Varma APRN, [facility] Neurology [facility] 11/15/22 Office Visit Gladys Varma APRN, [facility] Neurology [facility] 09/13/21 Office Visit Gladys Varma APRN, [facility] Showing recent visits within past 730 days and meeting all other requirements Future Appointments Date Type Provider Dept 05/19/23 Appointment Gladys Varma APRN, [facility] Neurology [facility] Showing future appointments within next 90 days and meeting all other requirements Passed - No documented Systolic BP > 200 within past 3 months Passed - Number of active Serotonergic medications less than 3 documented in this encounter Plan of Treatment Upcoming Encounters Date Type Department Care Team (Late st Contact Info) Description 01/10/2026 3:00 PM CDT Office Visit [facility] - Neurology - [place] [address] [place] [address] Gladys Varma APRN, SENIOR PROGRAM ANALYST #[address] [place] [address] documented as of this encounter Visit Diagnoses Not on filedocumented in this encounter Care Teams Commercial Maintenance Technician Relationship Specialty Start Date End Date Jj Kaiser MD [address] [place] [address] [place] [address] PCP - General Family Medicine 09/13/21 Andrei Brice DPM Consulting Physician Podiatry 05/23/17 Gladys Varma APRN, SENIOR PROGRAM ANALYST #[address] [place] [address] Nurse Practitioner Advanced Practice Nurse 11/15/22 documented as of this encounter
--- OUTSIDE RECORDS SUMMARY | 2025-03-24 18:01 | XMS_ITS | Encounter Summary ---
Author Organization [facility] Address [address] [place] [address] Phone Care Team Providers Care Livestock Nutrition Territory Manager Name Role Phone Andrei Brice DPM Unavailable [phone] Jj Kaiser MD Primary Care Provider Gladys Varma APRN, SEO EXPERT Unavailable Reason for Visit * Reason Comments Medication Refill Encounter Details Date Type Department Care Team (Late st Contact Info) Description 07/13/2023 Refill [facility] - Neurology [facility] [address] [place] [address] Gladys Varma, VICE PRESIDENT PROCESS, SEO EXPERT [address] [place] [address] Medication Refill Social History Tobacco Use Types [...] Coronavirus/COVID-19? No / Unsure 06/26/2023 3:13 PM ASSISTANT MANAGER RETAIL documented as of this encounter Miscellaneous Notes [...] Dept 05/19/23 Office Visit Gladys Varma APRN, SEO EXPERT [facility] 02/14/23 Office Visit Gladys Varma APRN, SEO EXPERT [facility] [place] 11/15/22 Office Visit Gladys Varma APRN, SEO EXPERT [facility] Showing recent visits within past 365 days and meeting all other requirements Future Appointments Date Type Provider Dept 08/25/23 Appointment Gladys Varma APRN, SEO EXPERT [facility] [place] Showing future appointments within next 90 days and meeting all other requirements Passed - No active on record Passed - No matching NSAID med order in past 45 days No matching medication orders between 05/29/2023 7:27 PM and 07/13/2023 7:27 PM STANT MANAGER RETAIL documented in this encounter Plan of Treatment Upcoming Encounters Date Type Department Care Team (Late st Contact Info) Description 01/10/2026 3:00 PM CDT Office Visit [facility] - Neurology - [place] [address] [place] [address] Gladys Varma APRN, SEO EXPERT [address] [place] [address] documented as of this encounter Visit Diagnoses Diagnosis Chronic migraine with aura without status migrainosus, not intractable- Primary Neck pain Cervicalgia documented in this encounter Care Teams Livestock Nutrition Territory Manager Relationship Specialty Start Date End Date Jj Kaiser MD 4 [facility] [address] [address] PCP - General Family Medicine 09/13/21 Andrei Brice DPM Consulting Physician Podiatry 05/23/17 Gladys Varma APRN, SEO EXPERT [address] [place] [address] Nurse Practitioner Advanced Practice Nurse 11/15/22 documented as of this encounter
--- OUTSIDE RECORDS SUMMARY | 2025-03-24 18:01 | XMS_ITS | Encounter Summary ---
Author Organization [facility] Address [address] [place] [address] Phone Care Team Providers Care Patient Account Analyst Name Role Phone ShivaniLori garduno Edwin BATES Primary Care Provider [phone] Andrei Brice DPM Unavailable [phone] Jj Kaiser MD Primary Care Provider [phone] Gladys Varma APRN, YOUTH MINISTER Unavailable + [phone] Reason for Visit * Reason Comments Medication Refill Encounter Details Date Type Department Care Team (Late Contact Info) Description 05/21/2020 [facility]ill [facility] - [place] [address] [place] [id number] Morgan Prado MD [address] [place] [phone] Medication Refill Social History Tobacco Use Types [...] Description 01/10/2026 3:00 PM CDT [facility] - [place] [address] [place] [address] Gladys Varma APRN, YOUTH MINISTER [address] [facility] [address] documented as of this encounter Visit Diagnoses Not on filedocumented in this encounter Care Teams Patient Account Analyst Relationship Specialty Start Date End Date Lori Lo APRN 4 [facility] [place] [address] PCP - General Family Medicine 05/23/17 09/12/21 Jj Kaiser MD 4 [facility] [place] [address] PCP - General Family Medicine 09/13/21 Andrei Brice DPM 4 [facility] [place] [address] Consulting Physician Podiatry 05/23/17 Gladys Varma APRN, YOUTH MINISTER [address] [place] [address] Nurse Practitioner Advanced Practice Nurse 11/15/22 documented as of this encounter
--- OUTSIDE RECORDS SUMMARY | 2025-03-24 18:01 | XMS_ITS | Clinical Summary ---
Author Organization [facility] Address [address] [facility] [place] [address] Phone Care Team Providers Care Police Guard Name Role Phone Andrei Brice DPM Unavailable [phone] Jj Kaiser MD Primary Care Provider [phone] Gladys Varma COAL CHUTE WORKER, SLIDE MAKER Unavailable [phone] Allergies Active Allergy Reactions Criticality Noted Date Comments Amoxicillin-Pot Clavulanate Unknown 05/23/20 17 Medications Xulane 150-35 MCG/24HR PATCH WEEKLY 09/12/2021 Active buPROPion (WELLBUTRIN) 100 MG Tablet Take 100 mg by mouth 2 times daily. Active pantoprazole (PROTONIX) 40 MG Tablet Delayed Response Take 1 Tablet by mouth daily. 30 Tablet 06/04/2024 Active traMADol (ULTRAM) 50 MG TabletIndication s:Gastritis without bleeding, unspecified chronicity, unspecified gastritis type Take 1-2 Tablets by mouth every 6 hours as needed for Severe pain. 12 Tablet 06/04/2024 Active topiramate (TOPAMAX) 100 MG TabletIndication s:Chronic migraine with aura without status migrainosus, not intractable Take 2 Tablets by mouth daily. 180 Tablet 1 01/13/2025 Active Rizatriptan Benzoate 10 MG TabletIndication s:Chronic migraine with aura without status migrainosus, not intractable Take 1 Tablet by mouth once as needed for Headaches. May repeat in 2 hours in needed 10 Tablet 2 01/13/2025 Active ondansetron (ZOFRAN-ODT) 4 MG TABLET DISPERSIBLEIndic ations:Chronic migraine with aura without status migrainosus, not intractable Take 1 Tablet by mouth every 8 hours as needed for Nausea - 1st line. 30 Tablet 3 01/13/2025 Active cyclobenzaprine (FLEXERIL) 10 MG Tablet Take 1 Tablet by mouth 3 times daily as needed for Muscle spasms. 30 Tablet 2 01/26/2025 Active naproxen (NAPROSYN) 500 MG TabletIndication s:Neck pain TAKE 1 TABLET BY MOUTH DAILY NEEDED FOR HEADACHES. 30 Tablet 2 02/07/2025 Active Active Problems Problem Noted Date Diagnosed Date Migraine with aura and witho ut status migrainosus, not intractable 04/21/2019 Paronychia of great toe, left 06/05/2017 Encounters Date Type Department Care Team Description 02/07/2025 [facility] [address] [place] [address] Gladys Varma APRN, SLIDE MAKER Medication Refill [facility] [address] [place] [address] Gladys Varma APRN, SLIDE MAKER Medication Refill 01/13/2025 3:00 PM CDT Office Visit [facility] [address] [place] [address] Gladys Varma APRN, SLIDE MAKER Chronic migraine with aura without status migrainosus, not intractable Discharge Disposition: Discharged to home or Selfcare 01/13/2025 Travel from Last 3 Months Family History Medical [...] Sign Reading Time Taken Comments Blood Pressure 102/74 01/13/2025 2:47 PM CDT Pulse 69 01/13/2025 2:47 PM CDT Temperature 36.4 C (97.5 F) 01/13/2025 2:47 PM CDT Respiratory Rate 16 01/13/2025 2:47 PM CDT Oxygen Saturation 100% 01/13/2025 2:47 PM CDT Inhaled Oxygen Concentration - - Weight 67.9 kg (149 lb 9.6 oz) 01/13/2025 2:47 P M CDT Height 165.1 cm (5' 5) 01/13/2025 2:47 PM CDT Body Mass Index 24.89 01/13/2025 2:47 PM CDT Plan of Treatment Upcoming Encounters Date Type Department Care Team (Late st Contact Info) Description 01/10/2026 3:00 PM CDT Office Visit [facility] - [facility] [address] [place] [address] Gladys Varma APRN, SLIDE MAKER [address] [place] [address] Health Maintenance Due Date Last Done Comments Hepatitis C Virus (HCV) Screening 1986 TdaP Immunization 1986 Hepatitis B Immunization (1 of 3 - 19+ 3-dose series) 2005 Pap Smear 11/08/2007 Human Papillomavirus (HPV) Immunization (1 - 3-dose SCDM series) 2013 Cervical Cancer Screening (CCS) 2016 HPV/Cotest 2016 SARS-COV-2 Immunization ( - 2023- season) 2024 Influenza Immunization (#1) 2025 07/18/2016 Respiratory Syncytial Virus (RSV) Immunization [...] age to complete this topic Insurance [place]ID [place] Care Teams Police Guard Relationship Specialty Start Date End Date Jj Kaiser MD [address] [place] [address] [address] PCP - General Family Medicine 09/13/21 Andrei Brice DPM Consulting Physician Podiatry 05/23/17 Gladys Varma APRN, SLIDE MAKER [address] [place] [address] Nurse Practitioner Advanced Practice Nurse 11/15/22
[2025-03-24 18:05] VITALS: BP 104/74; PULSE 76; RESP 16; TEMP 36.3; O2SAT 100
--- NOTE | 2025-03-24 19:26 | ED.UPPEXIN ---
HPI - Extremity Injury (Upper) General Chief Complaint: Extremity Injury, Upper Stated Complaint: Right Hand Pain Time Seen by Provider: 03/24/25 19:00 Source: patient and RN notes reviewed Mode of arrival: ambulatory Limitations: no limitations History of Present Illness HPI narrative: 39-year-old female presents to the [facility] complaining of right hand pain since last night. Patient reports having medial hand pain. 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 Patient has been trying rice therapy and Tylenol with relief. Patient denies any numbness or tingling. Related Data Home Medications ?Medication ?Instructions ?Recorded ?Confirmed ?Last Taken ?Type sumatriptan 85 mg-naproxen 500 mg 1 tablet PO ONCE 01/07/20 01/07/20 Unknown History tablet topiramate 150 mg capsule 150 mg PO DAILY 01/07/20 01/07/20 Unknown History sprinkle,extended release 24 hr bupropion HCl 100 mg tablet,12 hr mg PO 09/27/24 Unknown History sustained-release norelgestromin 150 mcg-e.estradiol patch 09/27/24 Unknown History 35 mcg/24 hr weekly transderm patch Allergies Allergy/AdvReac Type Severity Reaction Status Date / Time amoxicillin Allergy Intermediate Hives / Verified 09/27/24 18:02 Red Face clavulanic acid Allergy Intermediate Hives / Verified 09/27/24 18:02 Red Face Review of Systems Review of Systems: CONSTITUTIONAL: Denies fever, chills, or sweats. EYES: Denies visual changes, redness, or discharge. ENT: Denies rhinorrhea, congestion, sore throat, or otalgia. CARDIOVASCULAR: Denies chest pain, palpitations, or edema. RESPIRATORY: Denies cough or dyspnea. GASTROINTESTINAL: Denies abdominal pain, nausea, vomiting, or diarrhea. GENITOURINARY: Denies dysuria or hematuria. SKIN: Denies rash, wound, or itching. MUSCULOSKELETAL: Denies back pain, joint pain, or myalgia. Positive for hand pain NEUROLOGIC: Denies headache, numbness, or weakness. PSYCHIATRIC: Denies anxiety or depression. All other systems reviewed are negative, except as documented in HPI. PMFSH Comments At the time of my signature, I reviewed and agree with the nursing past medical, surgical, social, and family history. There is no relevant family history pertinent to the patient complaint. Exam Narrative: GENERAL: This is a well-nourished, well-developed adult, in no apparent distress. They are non ill-appearing, nontoxic appearing. HEAD: normocephalic, atraumatic. EYES: Sclera clear/white. Vision is grossly intact. Conjunctiva normal. Extraocular movement intact. EARS: External ears normal Hearing grossly intact. NOSE: External nose normal THROAT: Mucous membranes moist NECK: Neck supple CARDIOVASCULAR: Regular rate and rhythm RESPIRATORY: Respiratory rate normal, respiratory effort nonlabored, no respiratory distress NEURO: awake, alert, and oriented to person, place and time. There were no obvious focal neurologic abnormalities. EXTREMITIES: Right hand No obvious deformity, injury, swelling, bruising, redness. Nontender to full range of motion. No bony tenderness. Capillary refill less than 3 seconds. Right radial Pulse 2 +palpable. Normal sensation. Neurovascular status intact distal injury. Patient make a fist, stop sign, okay sign, thumbs-up sign. Radial ulnar nerve distribution intact. BACK: Nontender without deformity. Course Course Emergency Course: Portions of this record may have been created with voice recognition software Level of Care: Express Care Visit Vital Signs Vital signs: Vital Signs Temperature 97.4 F L 03/24/25 18:05 Pulse Rate 76 03/24/25 18:05 Respiratory Rate 16 03/24/25 18:05 Blood Pressure 104/74 03/24/25 18:05 Pulse Oximetry 100 03/24/25 18:05 Oxygen Delivery Room Air 03/24/25 18:05 Temperature 97.4 F L 03/24/25 18:05 Pulse Rate 76 03/24/25 18:05 Respiratory Rate 16 03/24/25 18:05 Blood Pressure 104/74 03/24/25 18:05 Pulse Oximetry 100 03/24/25 18:05 Oxygen Delivery Room Air 03/24/25 18:05 Reviewed MDM - Extremity Injury (Upper) MDM Narrative Medical decision making narrative: X-ray right hand is negative for any fractures or acute findings. Patient likely has a hand sprain. Patient given Anthony wrap for comfort. Discussed physical exam findings. Advised supportive measures and signs/symptoms to go to the ER. Pt is appropriate for outpt treatment and f/u. Differential Diagnosis Differential diagnosis: Likely fracture of hand and other (Hand sprain, tendinitis) Imaging Data Radiologist's impression: ITS Impressions Hand X-Ray 03/24/25 18:37 IMPRESSION: No acute fracture or dislocation within the right hand, as detailed above. Critical Care Time Critical Care Time Critical Care Time: No Discharge Plan Discharge Clinical Impression: Hand sprain Qualifiers: Encounter type: initial encounter Laterality: right Qualified Code(s): S63.91XA - Sprain of unspecified part of right wrist and hand, initial encounter Patient Disposition: Home Condition: Stable Instructions: Hand Sprain (ED) Additional Instructions: The x-ray right hand is negative for any fractures or acute findings. Rest and elevate the arm. Apply ice 15-20 minute intervals several times a day Keep it wrapped with ANTHONY or he wrist splint Motrin 600mg -800mg every 6 to 8 hours, alternate with Tylenol 1000mg every 6 to 8 hours as needed Follow up with your primary care provider or orthopedist as needed in 1-2 weeks especially if pain persist. Patient Language: Comoran Prescriptions: No Action sumatriptan-naproxen 85-500 mg Tablet 1 tablet PO ONCE topiramate 150 mg Capsule,Sprinkle,Er 24hr 150 mg PO DAILY bupropion HCl 100 mg tablet sustained-release 12 hr PO norelgestromin-ethin.estradiol 150-35 mcg/24 hr patch weekly Follow-up/Referrals: Jim Deluna MD [Physician] - Miles,Jj Zhu MD [Primary Care Provider] - Time of Disposition: 19:01
== END 2025-03-24 19:10 | disposition home or self-care (01) ==
PROVIDERS: PCP Family Medicine
DX: S63.91XA Sprain of unspecified part of right wrist and hand, initial encounter (principal); X58.XXXA Exposure to other specified factors, initial encounter; Y99.0 Civilian activity done for income or pay
CPT/HCPCS: 73130; 99213; G0463

== ENCOUNTER 2025-08-16 13:03 | Emergency (ER) | payer OTHER, SELFPAY ==
--- NOTE | 2025-08-16 13:05 | ED.URI ---
HPI - URI/Sore Throat General Chief Complaint: Upper Respiratory Infection Stated Complaint: throat/body aches Time Seen by Provider: 08/16/25 13:40 Source: patient, RN notes reviewed and old records reviewed Mode of arrival: ambulatory Limitations: no limitations History of Present Illness HPI Narrative: 39-year-old female presents to the [facility] with complaints of sore other, headache and body aches that started yesterday. Has taken ibuprofen and Tylenol. Related Data Home Medications ?Medication ?Instructions ?Recorded ?Confirmed ?Last Taken ?Type sumatriptan 85 mg-naproxen 500 mg 1 tablet PO ONCE 01/07/20 01/07/20 Unknown History tablet bupropion HCl 100 mg tablet,12 hr mg PO 09/27/24 Unknown History sustained-release norelgestromin 150 mcg-e.estradiol patch 09/27/24 Unknown History 35 mcg/24 hr weekly transderm patch rizatriptan 10 mg tablet mg 08/16/25 Unknown History topiramate 100 mg tablet mg 08/16/25 Unknown History Allergies Allergy/AdvReac Type Severity Reaction Status Date / Time amoxicillin Allergy Intermediate Hives / Verified 08/16/25 13:15 Red Face clavulanic acid Allergy Intermediate Hives / Verified 08/16/25 13:15 Red Face Review of Systems Review of Systems: All systems reviewed & are unremarkable except as noted in HPI and below Constitutional: Constitutional: Reports as per HPI, Reports body ache(s) and Reports headache(s) ENT: Reports as per HPI and Reports sore throat Cardiovascular: Cardiovascular: Reports no additional cardiovascular complaints, Denies chest pain and Denies dyspnea Respiratory: Respiratory: Reports no additional respiratory complaints, Denies chest congestion, Denies cough and Denies dyspnea Musculoskeletal: Musculoskeletal: Reports no additional musculoskeletal complaints Integumentary/Breasts: Skin/Breast: Reports system reviewed and no additional complaints, except as docu PMFSH Comments At the time of my signature, I reviewed and agree with the nursing past medical, surgical, social, and family history. There is no relevant family history pertinent to the patient complaint. Exam Const: General: cooperative, no acute distress, well developed, alert, tired appearing, uncomfortable and well nourished Nutritional Appearance: well nourished Orientation/consciousness: patient oriented x3 Limitations: no limitations HENMT: Head: normal to inspection Ears: hearing grossly normal bilaterally, external ears normal, TM's normal bilaterally, EAC's normal, mastoids normal and no periauricular adenopathy Face and sinus: normal facial exam, sinuses nontender and face symmetric Mouth: Yes Normal oral and palatal mucosa present, Yes lip normal and Yes tongue normal Throat: posterior oropharynx normal, uvula midline, postnasal drainage and no uvular edema Eyes: General: appearance normal, both eyes and all related structures Alignment and Position: alignment normal Neck: Neck: normal visual inspection, full ROM, no lymphadenopathy and no meningeal signs Chest: Chest palpation & inspection: normal inspection of the chest Resp: Effort & Inspection: normal respiratory effort and able to speak in complete sentences Auscultation: clear to auscultation bilaterally, no crackles, no rales, no rhonchi and no wheezes Cardio: Rate: regular rate Skin: General skin exam: normal color and no rashes or lesions noted Neuro: General: patient oriented x3, gait normal, moves all extremities and no meningeal signs Cognition (Neuro): normal cognition Speech: normal speech Gait exam (Neuro): Normal gait present Extrem: General: normal to inspection, full ROM, capillary refill normal and normal gait Psych: Appearance: grossly normal and well kempt Mental Status: mental status grossly normal Speech and movement: Normal speech and movement present and Clear speech present Affect: normal affect Attitude: cooperative Course Course Level of Care: Express Care Visit Vital Signs Vital signs: Vital Signs Temperature 97.7 F 08/16/25 13:16 Pulse Rate 89 08/16/25 13:16 Respiratory Rate 20 08/16/25 13:16 Blood Pressure 108/78 08/16/25 13:16 Pulse Oximetry 100 08/16/25 13:16 Oxygen Delivery Room Air 08/16/25 13:16 Temperature 97.7 F 08/16/25 13:16 Pulse Rate 89 08/16/25 13:16 Respiratory Rate 20 08/16/25 13:16 Blood Pressure 108/78 08/16/25 13:16 Pulse Oximetry 100 08/16/25 13:16 Oxygen Delivery Room Air 08/16/25 13:16 reviewed MDM MDM Narrative Medical decision making narrative: Patient sitting in exam room. Patient is nontoxic, vitals stable. Patient presents with 2 day history of URI symptoms. Flu, COVID, strep were negative. Patient is appropriate for outpatient treatment with close follow-up Discharge instructions reviewed with patient, as well as provided in writing per nursing staff. The instructions also include specific and strict return/GO TO THE ER as well as f/u information. All questions have been answered, and the patient deny any further questions with discharge and discharge plan. Some parts of this dictation were generated by voice recognition software and may contain typographical and/or grammatical inaccuracies. Differential Diagnosis Differential Diagnosis: Differential diagnostic considerations for upper respiratory infection include upper respiratory infection, croup, otitis media, sinusitis, viral infection, bronchitis, influenza, pharyngitis, strep, uvulitis.? Lab Data MDM Lab Attestation statement: I personally reviewed the patient's lab results. Labs: Lab Results 08/16/25 08/16/25 Range/Units 13:20 13:30 POC Influenza A Ag Negative (Negative) POC Influenza B Ag Negative (Negative) POC SARS CoV-2 Ag Negative (Negative) POC Grp A Strep Screen Negative (Negative) Reviewed Discharge Plan Discharge Clinical Impression: Viral infection Upper respiratory infection Qualifiers: URI type: unspecified viral URI Qualified Code(s): J06.9 - Acute upper respiratory infection, unspecified Patient Disposition: Home Condition: Stable Instructions: Upper Respiratory Infection (ED), Viral Syndrome (ED) Additional Instructions: Your rapid strep swab was negative today at [facility]. A throat culture will be sent to the laboratory for further testing. If the test is positive, you will receive a phone call within 48 hours and an appropriate antibiotic will be initiated at that time. Your rapid COVID test were negative Your rapid flu test was negative Your symptoms are likely due to a viral illness, which is not treated with antibiotics. Typically viral infections last 7-10 days, can linger for couple of weeks. It is very important to treat your symptoms. Drink plenty of water, Gatorade, Pedialyte, ice pops or Jell-O. -Alternate Tylenol and Motrin per package directions for fever or pain. You can alternate every 4 hours -Antihistamine medication such as Zyrtec/Claritin/Shantel during the day can help improve symptoms. -doing daily nasal irrigations can help relieve pressure your sinuses. Things like a Neti pot -Use Flonase twice a day for 5 days then daily to help reduce the inflammation and dry up your sinuses. -You can also use Mucinex. Be sure to drink plenty of water with this medication at least 8 ounces with every dose and it is important to drink 8 to 10 glasses of water per day. Water is a natural decongestant -Eat and drink things that are easy to swallow, like tea or soup, or popsicles. -Oral rinses such as: Salt water gargles and/or may use topical anesthetic (eg. Chloraseptic spray) or lozenges to relieve dryness or throat pain). -Frequent hand washing or hand analysis analyst is one of the best ways to prevent spread of infection. -Using a vaporizer or humidifier at night will also help thin secretions and help with coughing up phlegm. -Follow up with primary care provider in 7-10 days if condition is not improving - For new or worsening symptoms go directly to the nearest ER Patient Language: Tajik Prescriptions: No Action sumatriptan-naproxen 85-500 mg Tablet 1 tablet PO ONCE bupropion HCl 100 mg tablet sustained-release 12 hr PO norelgestromin-ethin.estradiol 150-35 mcg/24 hr patch weekly rizatriptan 10 mg tablet topiramate 100 mg tablet Follow-up/Referrals: Job,Jj Zhu MD [Primary Care Provider] - 2 Weeks Clinical Impression: Upper respiratory infection; Viral infection Stand Alone Forms: Work/School Release IP Time of Disposition: 13:48
[2025-08-16 13:16] VITALS: BP 108/78; PULSE 89; RESP 20; TEMP 36.5; O2SAT 100
[2025-08-16 13:23] LABS: EDSTREPNEGPOS1 Negative (Negative)
--- OUTSIDE RECORDS SUMMARY | 2025-08-16 13:24 | XMS_ITS | Encounter Summary ---
Author Organization [facility] Address [address] [place] [address] Phone Care Team Providers Care Manufacturing Engineer Automotive Name Role Phone Andrei Brice DPM Unavailable [phone] Jj Kaiser MD Primary Care Provider Gladys Varma APRN, VAMP WETTER Unavailable Reason for Visit * Reason Comments Medication Refill Encounter Details Date Type Department Care Team (Late st Contact Info) Description 09/04/2023 Refill [facility] - Neurology - [place] [address]2 [place] [phone] Gladys Varma, SOFT IRON INSPECTOR, VAMP WETTER [address]2 [place] [address] Medication Refill Social History Tobacco Use Types [...] Dept 07/30/23 Office Visit Gladys Varma APRN, [facility] Neurology [facility] 05/19/23 Office Visit Gladys Varma APRN, [facility] 02/14/23 Office Visit Gladys Varma APRN, [facility] 11/15/22 Office Visit Gladys Varma APRN, [facility] 09/13/21 Office Visit Gladys Varma APRN, [facility] Showing recent visits within past 730 days and meeting all other requirements Future Appointments Date Type Provider Dept 11/03/23 Appointment Gladys Varma APRN, [facility] Showing future appointments within next 90 days and meeting all other requirements Passed - No documented Systolic BP > 200 within past 3 months Passed - Number of active Serotonergic medications less than 3 PUNCHER documented in this encounter Plan of Treatment Upcoming Encounters Date Type Department Care Team (Late st Contact Info) Description 01/10/2026 3:00 PM CDT [facility] - Neurology - [place] [address]2 [place] [address] Gladys Varma APRN, VAMP WETTER [address]2 [place] [address] documented as of this encounter Visit Diagnoses Not on filedocumented in this encounter Care Teams Manufacturing Engineer Automotive Relationship Specialty Start Date End Date Jj Kaiser MD [address] [place] [address] [address] [place] [address] PCP - General Family Medicine 09/13/21 Andrei Brice DPM Consulting Physician Podiatry 05/23/17 Gladys Varma APRN, VAMP WETTER [address] [place] [address] Nurse Practitioner Advanced Practice Nurse 11/15/22 documented as of this encounter
--- OUTSIDE RECORDS SUMMARY | 2025-08-16 13:24 | XMS_ITS | Encounter Summary ---
Author Organization [facility] Address [address] [place] [address] Phone Care Team Providers Care Campaign Coordinator Name Role Phone Andrei Brice DPM Unavailable [phone] Jj Kaiser MD Primary Care Provider [phone] Gladys Varma APRN, SALES ENABLEMENT ANALYST Unavailable + [phone] Reason for Visit * Reason Comments Medication Refill Encounter Details Date Type Department Care Team (Late Contact Info) Description 05/28/2022 [facility] [address]2 [place] [address] Gladys Varma, JANA, SALES ENABLEMENT ANALYST [address]2 [place] [address] Medication Refill Social History Tobacco Use Types [...] Description 01/10/2026 3:00 PM CDT Office Visit [facility] Neurology [facility] #2 [facility] [place] [address] Gladys Varma APRN, SALES ENABLEMENT ANALYST [address] [place] [address] documented as of this encounter Visit Diagnoses Not on filedocumented in this encounter Care Teams Campaign Coordinator Relationship Specialty Start Date End Date Jj Kaiser MD [address] [place] [address] [facility] [address] [place] [address] PCP - General Family Medicine 09/13/21 Andrei Brice DPM Consulting Physician Podiatry 05/23/17 Gladys Varma APRN, SALES ENABLEMENT ANALYST [address] [place] [address] Nurse Practitioner Advanced Practice Nurse 11/15/22 documented as of this encounter
--- OUTSIDE RECORDS SUMMARY | 2025-08-16 13:24 | XMS_ITS | Encounter Summary ---
Author Organization [facility] Address [address] [place] [address] Phone Care Team Providers Care Sweatband Flanger Name Role Phone Andrei Brice DPM Unavailable [phone] Jj Kaiser MD Primary Care Provider [phone] Gladys Varma APRN, CHEMICAL COMPOUNDER Unavailable + [phone] Reason for Visit * Reason Comments Medication Refill Encounter Details Date Type Department Care Team (Late Contact Info) Description 05/[facility]/20[facility] #2 [place] [phone] Gladys Varma, JANA, CHEMICAL COMPOUNDER [address]2 [place] [address] Medication Refill Social History Tobacco Use Types [...] Description 01/10/2026 3:00 PM CDT Office Visit [facility] Neurology [facility] #2 [facility] [place] [place] [address] Gladys Varma APRN, CHEMICAL COMPOUNDER [address] [place] [address] documented as of this encounter Visit Diagnoses Not on filedocumented in this encounter Care Teams Sweatband Flanger Relationship Specialty Start Date End Date Jj Kaiser MD [address] [place] [address] [facility] [address] [place] [address] PCP - General Family Medicine 09/13/21 Andrei Brice DPM Consulting Physician Podiatry 05/23/17 Gladys Varma APRN, CHEMICAL COMPOUNDER [address] [place] [address] Nurse Practitioner Advanced Practice Nurse 11/15/22 documented as of this encounter
--- OUTSIDE RECORDS SUMMARY | 2025-08-16 13:24 | XMS_ITS | Encounter Summary ---
Author Organization [facility] Address [address] [address] Phone Care Team Providers Care Strategic Planning Specialist Name Role Phone Andrei Brice DPM Unavailable [phone] Jj Kaiser MD Primary Care Provider [phone] Gladys Varma APRN, KNOWLEDGE MANAGER Unavailable + [phone] Reason for Visit * Reason Comments Medication Refill Encounter Details Date Type Department Care Team (Late Contact Info) Description 12/29/2021 [facility] [address]2 [place] [address] Gladys Varma, SANDSTONE INSPECTOR REPAIRER, KNOWLEDGE MANAGER [address]2 [place] [address] Medication Refill Social History Tobacco Use Types [...] Description 01/10/2026 3:00 PM CDT Office Visit [facility] Neurology [facility] [address] [place] [address] Gladys Varma APRN, KNOWLEDGE MANAGER [address] [place] [address] documented as of this encounter Visit Diagnoses Diagnosis Migraine with aura, not intractable, without status migrainosus documented in this encounter Care Teams Strategic Planning Specialist Relationship Specialty Start Date End Date Jj Kaiser MD [address] [place] [address] [facility] [address] [place] [address] PCP - General Family Medicine 09/13/21 Andrei Brice DPM Consulting Physician Podiatry 05/23/17 Gladys Varma APRN, KNOWLEDGE MANAGER [address]2 [place] [address] Nurse Practitioner Advanced Practice Nurse 11/15/22 documented as of this encounter
--- OUTSIDE RECORDS SUMMARY | 2025-08-16 13:24 | XMS_ITS | Encounter Summary ---
Author Organization [facility] Address [address] [place] [address] Phone Care Team Providers Care Powerhouse Tender Name Role Phone Andrei Brice DPM Unavailable [phone] Jj Kaiser MD Primary Care Provider [phone] Gladys Varma APRN, METHODS SPECIALIST Unavailable Reason for Visit * Reason Comments Medication Refill Encounter Details Date Type Department Care Team (Late st Contact Info) Description 11/01/2024 [facility] - [place] [address] [place] [phone] Gladys Varma, JANA, METHODS SPECIALIST [address]2 [place] [address] Medication Refill Social History Tobacco Use Types [...] 11/03/23 Office Visit Gladys Varma APRN, [facility] Neurology [facility] Showing recent visits within past 365 days and meeting all other requirements Future Appointments Date Type Provider Dept 01/13/25 Appointment Gladys Varma APRN, [facility] Showing future appointments within next 90 days and meeting all other requirements documented in this encounter Plan of Treatment Upcoming Encounters Date Type Department Care Team (Late st Contact Info) Description 01/10/2026 3:00 PM CDT Office Visit [facility] - Neurology - [place] [address] [place] [address] Gladys Varma APRN, METHODS SPECIALIST [address] [place] [address] documented as of this encounter Visit Diagnoses Not on filedocumented in this encounter Care Teams Powerhouse Tender Relationship Specialty Start Date End Date Jj Kaiser MD [address] [place] [address] [place] [address] PCP - General Family Medicine 09/13/21 Andrei Brice DPM Consulting Physician Podiatry 05/23/17 Gladys Varma APRN, METHODS SPECIALIST [address] [place] [address] Nurse Practitioner Advanced Practice Nurse 11/15/22 documented as of this encounter
--- OUTSIDE RECORDS SUMMARY | 2025-08-16 13:24 | XMS_ITS | Encounter Summary ---
Author Organization [facility] Address [address] [place] [address] Phone Care Team Providers Care Account Officer Name Role Phone Andrei Brice DPM Unavailable [phone] Jj Kaiser MD Primary Care Provider [phone] Gladys Varma APRN, AUTO MACHINIST Unavailable + [phone] Reason for Visit * Reason Comments Medication Refill Encounter Details Date Type Department Care Team (Late Contact Info) Description [facility] #2 [place] [address] Gladys Varma, V BELT SKIVER, AUTO MACHINIST [address]2 [place] [address] Medication Refill Social History Tobacco Use Types [...] Description 01/10/2026 3:00 PM CDT Office Visit [facility] Neurology [facility] #2 [facility] [place] [address] Gladys Varma APRN, AUTO MACHINIST [address] [place] [address] documented as of this encounter Visit Diagnoses Not on filedocumented in this encounter Care Teams Account Officer Relationship Specialty Start Date End Date Jj Kaiser MD [address] [place] [address] [facility] [address] [place] [address] PCP - General Family Medicine 09/13/21 Andrei Brice DPM Consulting Physician Podiatry 05/23/17 Gladys Varma APRN, AUTO MACHINIST [address] [place] [address] Nurse Practitioner Advanced Practice Nurse 11/15/22 documented as of this encounter
--- OUTSIDE RECORDS SUMMARY | 2025-08-16 13:24 | XMS_ITS | Encounter Summary ---
Author Organization [facility] Address [address] [place] [address] Phone Care Team Providers Care Cytopathologist Name Role Phone Andrei Brice DPM Unavailable [phone] Jj Kaiser MD Primary Care Provider [phone] Gladys Varma APRN, CELLOPHANE TESTER Unavailable Reason for Visit * Reason Comments Medication Refill Encounter Details Date Type Department Care Team (Late st Contact Info) Description 12/17/2022 Refill [facility] - Neurology - [place] [address]2 [place] [address] Gladys Varma, PRENATAL GENETIC COUNSELOR, CELLOPHANE TESTER [address]2 [place] [address] Medication Refill Social History Tobacco Use Types [...] Gladys Varma APRN, [facility] Neurology [facility] [place] 09/13/21 Office Visit Gladys Varma APRN, [facility] Showing recent visits within past 730 days and meeting all other requirements Future Appointments Date Type Provider Dept 02/14/23 Appointment Gladys Varma APRN, [facility] Showing future appointments within next 90 days and meeting all other requirements Passed - No documented Systolic BP > 200 within past 3 months Passed - Number of active Serotonergic medications less than 3 documented in this encounter Plan of Treatment Upcoming Encounters Date Type Department Care Team (Late st Contact Info) Description 01/10/2026 3:00 PM CDT Office Visit [facility] - Neurology - [place] [address] [place] [address] Gladys Varma APRN, CELLOPHANE TESTER [address] [place] [address] documented as of this encounter Visit Diagnoses Not on filedocumented in this encounter Care Teams Cytopathologist Relationship Specialty Start Date End Date Jj Kaiser MD [address] [place] [address] [place] [address] PCP - General Family Medicine 09/13/21 Andrei Brice DPM Consulting Physician Podiatry 05/23/17 Gladys Varma APRN, CELLOPHANE TESTER [address] [place] [address] Nurse Practitioner Advanced Practice Nurse 11/15/22 documented as of this encounter
--- OUTSIDE RECORDS SUMMARY | 2025-08-16 13:24 | XMS_ITS | Encounter Summary ---
Author Organization [facility] Address [address] [place] [address] Phone Care Team Providers Care Automotive Engineer Name Role Phone Andrei Brice DPM Unavailable [phone] Jj Kaiser MD Primary Care Provider [phone] Gladys Varma APRN, IGNITION MECHANIC Unavailable + [phone] Reason for Visit * Reason Comments Medication Refill Encounter Details Date Type Department Care Team (Late Contact Info) Description 04/03/2023 [facility] #2 [place] [address] Gladys Varma, PRODUCT SAFETY COORDINATOR, IGNITION MECHANIC #2 [place] [address] Medication Refill Social History Tobacco Use Types [...] Description 01/10/2026 3:00 PM CDT Office Visit [facility] Neurology [facility] #2 [place] [address] Gladys Varma APRN, IGNITION MECHANIC [address] [place] [address] documented as of this encounter Visit Diagnoses Diagnosis Chronic migraine with aura documented in this encounter Care Teams Automotive Engineer Relationship Specialty Start Date End Date Jj Kaiser MD [address] [place] [address] [facility] [address] [place] [address] PCP - General Family Medicine 09/13/21 Andrei Brice DPM Consulting Physician Podiatry 05/23/17 Gladys Vamra APRN, IGNITION MECHANIC [address] [place] [address] Nurse Practitioner Advanced Practice Nurse 11/15/22 documented as of this encounter
--- OUTSIDE RECORDS SUMMARY | 2025-08-16 13:24 | XMS_ITS | Encounter Summary ---
Author Organization [facility] Address [address] [place] [address] Phone Care Team Providers Care Line Ordering Clinician Name Role Phone Andrei Brice DPM Unavailable [phone] Jj Kaiser MD Primary Care Provider [phone] Gladys Varma APRN, DESIGN ANALYST Unavailable Reason for Visit * Reason Comments Medication Refill Encounter Details Date Type Department Care Team (Late st Contact Info) Description 06/30/2023 Refill [facility] - Neurology [facility] #2 [place] [address] Gladys Varma, JANA, DESIGN ANALYST [address]2 [place] [address] Medication Refill Social History Tobacco Use Types [...] Coronavirus/COVID-19? No / Unsure 06/26/2023 3:13 PM FIELD ADVISOR documented as of this encounter Miscellaneous Notes [...] Dept 05/19/23 Office Visit Gladys Varma APRN, DESIGN ANALYST [facility] Neurology [facility] 02/14/23 Office Visit Gladys Varma APRN, [facility] [place] 11/15/22 Office Visit Gladys Varma APRN, [facility] Showing recent visits within past 365 days and meeting all other requirements Future Appointments Date Type Provider Dept 08/25/23 Appointment Gladys Varma APRN, [facility] Showing future appointments within next 90 days and meeting all other requirements D ADVISOR documented in this encounter Plan of Treatment Upcoming Encounters Date Type Department Care Team (Late st Contact Info) Description 01/10/2026 3:00 PM CDT Office Visit [facility] - Neurology - [place] [address] [place] [address] Gladsy Varma APRN, DESIGN ANALYST [address] [place] [address] documented as of this encounter Visit Diagnoses Not on filedocumented in this encounter Care Teams Line Ordering Clinician Relationship Specialty Start Date End Date Jj Kaiser MD [address] [facility] [address] [place] [address] PCP - General Family Medicine 09/13/21 Andrei Brice DPM Consulting Physician Podiatry 05/23/17 Gladys Varma, CALLISTHENICS INSTRUCTOR, DESIGN ANALYST [address] [place] [address] Nurse Practitioner Advanced Practice Nurse 11/15/22 documented as of this encounter
--- OUTSIDE RECORDS SUMMARY | 2025-08-16 13:24 | XMS_ITS | Clinical Summary ---
Author Organization [facility] Address [address] [place] [address] Care Team Providers Care Sports Betting Manager Name Role Phone Jj aKiser MD Primary Care Provider [phone] Allergies Active Allergy Reactions Criticality Noted Date [...] on file Legal Sex Female 2:04 AM FAC ENGINEER Gender Identity Not on file Sexual [...] pont None N Livin g 8 8 KAT GARVEY Geoffr ey [place], MD Complications:None Delivery Location:[facility] Last Filed Vital Signs Vital Sign Reading Time Taken Comments Blood Pressure 101/70 12/03/2023 2:14 PM CDT Pulse 86 12/03/2023 2:14 PM CDT Temperature 36.2 C (97.1 F) 09/16/2022 6:55 AM FAC ENGINEER Respiratory Rate 18 12/03/2023 2:14 PM [...] 2013 Influenza Vaccine (#1) 2025 07/18/2016 Insurance [facility] Advance Directives For more information, please contact: [phone] * Full Code (Latest Code Status on File) Date Activated Date Inactivated Comments 04/26/2021 3:11 PM 04/28/2021 10:39 PM * Full Code Date Activated Date Inactivated Comments 04/26/2021 6:37 AM 04/26/2021 3:11 PM Full CPR in ca se of cardiopulmonary arrest Care Teams Sports Betting Manager Relationship Specialty Start Date End Date Jj Kaiser MD PCP - General 08/18/20
--- OUTSIDE RECORDS SUMMARY | 2025-08-16 13:24 | XMS_ITS | Encounter Summary ---
Author Organization [facility] Address [address] [place] [address] Phone Care Team Providers Care Principal Trainer Name Role Phone Andrei Brice DPM Unavailable [phone] Jj Kaiser MD Primary Care Provider [phone] Gladys Varma APRN, FAMILY COACH Unavailable Reason for Visit * Reason Comments Medication Refill Encounter Details Date Type Department Care Team (Late st Contact Info) Description 05/01/2023 Refill [facility] - Neurology - [place] #2 [place] [address] Gladys Varma, CERTIFIED REGISTERED NURSE ANESTHETIST, FAMILY COACH #2 [place] [address] Medication Refill Social History Tobacco Use Types [...] Dept 02/14/23 Office Visit Gladys Varma APRN, [facility] Neurology [facility] 11/15/22 Office Visit Gladys Varma APRN, [facility] Neurology [facility] 09/13/21 Office Visit Gladys Varma APRN, [facility] Showing recent visits within past 730 days and meeting all other requirements Future Appointments Date Type Provider Dept 05/19/23 Appointment Gladys Varma APRN, [facility] Neurology [facility] Showing future appointments within next 90 days and meeting all other requirements Passed - No documented Systolic BP > 200 within past 3 months Passed - Number of active Serotonergic medications less than 3 documented in this encounter Plan of Treatment Upcoming Encounters Date Type Department Care Team (Late st Contact Info) Description 01/10/2026 3:00 PM CDT Office Visit [facility] - Neurology - [place] [address]2 [place] [address] Gladys Varma APRN, FAMILY COACH [address] [place] [address] documented as of this encounter Visit Diagnoses Not on filedocumented in this encounter Care Teams Principal Trainer Relationship Specialty Start Date End Date Jj Kaiser MD [address] [facility] [place] [address] PCP - General Family Medicine 09/13/21 Andrei Brice DPM Consulting Physician Podiatry 05/23/17 Gladys Varma APRN, FAMILY COACH [address] [place] [address] Nurse Practitioner Advanced Practice Nurse 11/15/22 documented as of this encounter
--- OUTSIDE RECORDS SUMMARY | 2025-08-16 13:24 | XMS_ITS | Encounter Summary ---
Author Organization [facility] Address [address] [place] [address] Phone Care Team Providers Care Eyewear Manufacturing Supervisor Name Role Phone Andrei Brice DPM Unavailable [phone] jJ Kaiser MD Primary Care Provider [phone] Gladys Varma APRN, SUPERVISOR HEAT TREATING Unavailable + [phone] Reason for Visit * Reason Comments Medication Refill Encounter Details Date Type Department Care Team (Late Contact Info) Description 01/30/2022 [facility] #2 [place] [address] Gladys Varma, UPTWIST SPINNER, SUPERVISOR HEAT TREATING #2 [place] [address] Medication Refill Social History Tobacco Use Types [...] Description 01/10/2026 3:00 PM CDT Office Visit [facility] Neurology [facility] #2 [facility] [address] Gladys Varma APRN, SUPERVISOR HEAT TREATING [address] [place] [address] documented as of this encounter Visit Diagnoses Not on filedocumented in this encounter Care Teams Eyewear Manufacturing Supervisor Relationship Specialty Start Date End Date Jj Kaiser MD [address] [place] [address] [facility] [address] [place] [address] PCP - General Family Medicine 09/13/21 Andrei Brice DPM Consulting Physician Podiatry 05/23/17 Gladys Varma APRN, SUPERVISOR HEAT TREATING [address] [place] [address] Nurse Practitioner Advanced Practice Nurse 11/15/22 documented as of this encounter
--- OUTSIDE RECORDS SUMMARY | 2025-08-16 13:24 | XMS_ITS | Encounter Summary ---
Author Organization [facility] Address [address] [place] [address] Phone Care Team Providers Care Senior Drupal Developer Name Role Phone Andrei Brice DPM Unavailable [phone] Jj Kaiser MD Primary Care Provider [phone] Gladys Varma APRN, CHICK SEXER Unavailable Reason for Visit * Reason Comments Medication Refill Encounter Details Date Type Department Care Team (Late st Contact Info) Description 01/05/2024 Refill [facility] - Neurology - [place] [address] [place] [id number] Gladys Varma, TANKER SERVICE ATTENDANT, CHICK SEXER [address] [place] [address] Medication Refill Social History Tobacco Use Types [...] Dept 11/03/23 Office Visit Gladys Varma APRN, [facility] Neurology [facility] 07/30/23 Office Visit Gladys Varma APRN, [facility] 05/19/23 Office Visit Gladys Varma APRN, [facility] [place] 02/14/23 Office Visit Gladys Varma APRN, [facility] Showing recent visits within past 365 days and meeting all other requirements Future Appointments Date Type Provider Dept 02/10/24 Appointment Gladys Varma APRN, [facility] Showing future appointments within next 90 days and meeting all other requirements documented in this encounter Plan of Treatment Upcoming Encounters Date Type Department Care Team (Late st Contact Info) Description 01/10/2026 3:00 PM CDT Office Visit [facility] - Neurology - [place] [address] [place] [address] Gladys Varma APRN, CHICK SEXER [address] [place] [address] documented as of this encounter Visit Diagnoses Diagnosis Chronic migraine with aura without status migrainosus, not intractable documented in this encounter Care Teams Senior Drupal Developer Relationship Specialty Start Date End Date Jj Kaiser MD [address] [facility] [place] [address] PCP - General Family Medicine 09/13/21 Andrei Brice DPM Consulting Physician Podiatry 05/23/17 Gladys Varma APRN, CHICK SEXER [address] [place] [address] Nurse Practitioner Advanced Practice Nurse 11/15/22 documented as of this encounter
--- OUTSIDE RECORDS SUMMARY | 2025-08-16 13:24 | XMS_ITS | Encounter Summary ---
Author Organization [facility] Address [address] [place] [address] Phone Care Team Providers Care Coating Machine Helper Name Role Phone Andrei Brice DPM Unavailable [phone] Jj Kaiser MD Primary Care Provider [phone] Gladys Varma APRN, FROG CATCHER Unavailable Reason for Visit * Reason Comments Medication Refill Encounter Details Date Type Department Care Team (Late st Contact Info) Description 07/13/2023 Refill [facility] - Neurology [facility] [address] [place] [address] Gladys Varma, JANA, FROG CATCHER [address] [place] [address] Medication Refill Social History Tobacco Use Types [...] Coronavirus/COVID-19? No / Unsure 06/26/2023 3:13 PM STRUCTURAL STEEL ERECTION SUPERVISOR documented as of this encounter Miscellaneous Notes [...] Provider Dept 05/19/23 Office Visit Gladys Varma APRN FROG CATCHER [facility] 02/14/23 Office Visit Gladys Varma APRN, [facility] [place] 11/15/22 Office Visit Gladys Varma APRN, [facility] [place] Showing recent visits within past 365 days and meeting all other requirements Future Appointments Date Type Provider Dept 08/25/23 Appointment Gladys Varma APRN FROG CATCHER [facility] [place] Showing future appointments within next 90 days and meeting all other requirements Passed - No active on record Passed - No matching NSAID med order in past 45 days No matching medication orders between 05/29/2023 7:27 PM and 07/13/2023 7:27 PM CTURAL STEEL ERECTION SUPERVISOR documented in this encounter Plan of Treatment Upcoming Encounters Date Type Department Care Team (Late st Contact Info) Description 01/10/2026 3:00 PM CDT Office Visit [facility] - Neurology - [place] [address] [place] [address] Gladys Varma APRN, FROG CATCHER [address] [place] [address] documented as of this encounter Visit Diagnoses Diagnosis Chronic migraine with aura without status migrainosus, not intractable- Primary Neck pain Cervicalgia documented in this encounter Care Teams Coating Machine Helper Relationship Specialty Start Date End Date Jj Kaiser MD 4 [facility] [address] [address] PCP - General Family Medicine 09/13/21 Andrei Brice DPM Consulting Physician Podiatry 05/23/17 Gladys Varma APRN, FROG CATCHER [address] [place] [address] Nurse Practitioner Advanced Practice Nurse 11/15/22 documented as of this encounter
--- OUTSIDE RECORDS SUMMARY | 2025-08-16 13:24 | XMS_ITS | Clinical Summary ---
Author Organization [facility] Address [address] [facility] [place] [address] Phone Care Team Providers Care Deck Mate Name Role Phone Andrei Brice DPM Unavailable [phone] Jj Kaiser MD Primary Care Provider [phone] Gladys Varma TINSMITH APPRENTICE, DIVERSITY SPECIALIST Unavailable [phone] Allergies Active Allergy Reactions Criticality Noted Date [...] 04/21/2019 Paronychia of great toe, left 06/05/2017 Family History Medical History Relation Name Comments [...] [facility] - Neurology - [place] [address] [place] [phone] Gladys Varma APRN, DIVERSITY SPECIALIST [address] [place] [address] Health Maintenance Due Date Last Done Comments Hepatitis C Virus (HCV) Screening 1986 TdaP Immunization 1986 Varicella Immunization (1 of 2 - 13+ 2-dose series) 11/08/1999 Hepatitis B Immunization (1 of 3 - 19+ 3-dose series) 2005 Pap Smear 11/08/2007 Cervical Cancer Screening (CCS) 2016 HPV/Cotest 2016 Influenza Immunization (#1) 2025 07/18/2016 SARS-COV-2 Immunization ( season) 2025 Respiratory Syncytial Virus (RSV) Immunization (Adult) (1 - 1-dose 75+ series) 2061 Human Papillomavirus (HPV) Immunization (No Doses Required) Completed Meningococcal Immunization (ACWY) Aged Out No longer eligible based on patient's age to complete this topic Pneumococcal Immunization Combined Aged Out No longer eligible based on patient's age to complete this topic Rotavirus Immunization Aged Out No lo nger eligible based on patient's age to complete this topic Insurance [place]ICAID [place] Care Teams Deck Mate Relationship Specialty Start Date End Date Kaiser, Jj E, MD [address] [place] [address] [address] [place] [address] PCP - General Family Medicine 09/13/21 Andrei Brice DPM Consulting Physician Podiatry 05/23/17 Gladys Varma, TINSMITH APPRENTICE, DIVERSITY SPECIALIST [address] [place] [address] Nurse Practitioner Advanced Practice Nurse 11/15/22
--- OUTSIDE RECORDS SUMMARY | 2025-08-16 13:24 | XMS_ITS | Encounter Summary ---
Author Organization [facility] Address [address] [place] [address] Phone Care Team Providers Care Welding Supervisor Name Role Phone Andrei Brice DPM Unavailable [phone] Jj Kaiser MD Primary Care Provider [phone] Gladys Varma APRN, FILTER TANK OPERATOR Unavailable Reason for Visit * Reason Comments Medication Refill Encounter Details Date Type Department Care Team (Late st Contact Info) Description 11/04/2022 Refill [facility] - Neurology - [place] [address] [place] [phone] Gladys Varma, JANA, FILTER TANK OPERATOR [address] [place] [address] Medication Refill Social History Tobacco Use Types [...] order placed on 10/01/2022 8:16 AM Order [id number]: naproxen (NAPROSYN) 500 MG Tablet (For orders [...] Provider Dept 11/15/22 Appointment Gladys Varma APRN, FILTER TANK OPERATOR [facility] Showing future appointments within next 90 days and meeting all other requirements Passed - No active on record documented in this encounter Plan of Treatment Upcoming Encounters Date Type Department Care Team (Late st Contact Info) Description 01/10/2026 3:00 PM CDT [facility] [address] [place] [address] Gladys Varma APRN, FILTER TANK OPERATOR [address] [place] [address] documented as of this encounter Visit Diagnoses Not on filedocumented in this encounter Care Teams Welding Supervisor Relationship Specialty Start Date End Date Jj Kaiser MD [address] [place] [address] [address] [place] [address] PCP - General Family Medicine 09/13/21 Andrei Brice DPM Consulting Physician Podiatry 05/23/17 Gladys Varma APRN, FILTER TANK OPERATOR [address] [facility] [place] [address] Nurse Practitioner Advanced Practice Nurse 11/15/22 documented as of this encounter
--- OUTSIDE RECORDS SUMMARY | 2025-08-16 13:24 | XMS_ITS | Encounter Summary ---
Author Organization [facility] Address [address] [place] [address] Phone Care Team Providers Care Trade Union Secretary Name Role Phone Andrei Brice DPM Unavailable [phone] Jj Kaiser MD Primary Care Provider [phone] Gladys Varma APRN, RN SOCIAL WORK Unavailable Reason for Visit * Reason Comments Medication Refill Encounter Details Date Type Department Care Team (Late st Contact Info) Description 11/22/2022 Refill [facility] - Neurology [facility] [address] [place] [address] Gladys Varma, JANA, RN SOCIAL WORK [address] [place] [address] Medication Refill Social History Tobacco Use Types [...] Dept 11/15/22 Office Visit Gladys Varma APRN, RN SOCIAL WORK [facility] Neurology [facility] Showing recent visits within past 365 days and meeting all other requirements Future Appointments Date Type Provider Dept 02/14/23 Appointment Gladys Varma APRN, RN SOCIAL WORK [facility] Neurology [facility] Showing future appointments within next 90 days and meeting all other requirements documented in this encounter Plan of Treatment Upcoming Encounters Date Type Department Care Team (Late st Contact Info) Description 01/10/2026 3:00 PM CDT Office Visit [facility] - Neurology - [place] [address] [place] [address] Gladys Varma APRN, RN SOCIAL WORK [address] [place] [address] documented as of this encounter Visit Diagnoses Not on filedocumented in this encounter Care Teams Trade Union Secretary Relationship Specialty Start Date End Date Jj Kaiser MD [address] [place] [address] [place] [address] PCP - General Family Medicine 09/13/21 Andrei Brice DPM Consulting Physician Podiatry 05/23/17 Gladys Varma APRN, RN SOCIAL WORK [address] [place] [address] Nurse Practitioner Advanced Practice Nurse 11/15/22 documented as of this encounter
--- OUTSIDE RECORDS SUMMARY | 2025-08-16 13:26 | XMS_ITS | Encounter Summary ---
Author Organization [facility] Address [address] [place] [address] Phone Care Team Providers Care Platform Consultant Name Role Phone Andrei Brice DPM Unavailable [phone] Jj Kaiser MD Primary Care Provider [phone] Gladys Varma APRN, MAINTENANCE MECHANIC SUPERVISOR Unavailable Reason for Visit * Reason Comments Medication Refill Encounter Details Date Type Department Care Team (Late st Contact Info) Description 02/13/2023 Refill [facility] - [facility] [address] [place] [address] Gladys Varma, JANA, MAINTENANCE MECHANIC SUPERVISOR [address] [place] [address] Medication Refill Social History Tobacco Use Types [...] Description 01/10/2026 3:00 PM CDT Office Visit [facility] - [facility] [address] [place] [address] Gladys Varma APRN, MAINTENANCE MECHANIC SUPERVISOR [address] [place] [address] documented as of this encounter Visit Diagnoses Diagnosis Migraine with aura, not intractable, without status migrainosus documented in this encounter Care Teams Platform Consultant Relationship Specialty Start Date End Date Jj Kaiser MD [address] [facility] [place] [address] PCP - General Family Medicine 09/13/21 Andrei Brice DPM Consulting Physician Podiatry 05/23/17 Gladys Varma APRN, MAINTENANCE MECHANIC SUPERVISOR [address] [place] [address] Nurse Practitioner Advanced Practice Nurse 11/15/22 documented as of this encounter
[2025-08-16 13:32] LABS: EDCOVIDSCREEN Negative (Negative); EDINFLUASCREEN Negative (Negative); EDINFLUBSCREEN Negative (Negative)
== END 2025-08-16 13:53 | disposition home or self-care (01) ==
PROVIDERS: Emergency Provider Nurse Practitioner; PCP Family Medicine
DX: B34.9 Viral infection, unspecified (principal); Z20.822 Contact with and (suspected) exposure to COVID-19
CPT/HCPCS: 87081; 87426; 87804; 87880; 99213; G0463